=== PATIENT | female | born 1980 | race Two or more races ===

== ENCOUNTER → 2020-05-04 09:08 | Outpatient (BNVA) | payer OTHER, SELFPAY | PROVIDERS: PCP Internal Medicine; Referring Provider Internal Medicine; Visit Provider Advanced Practice Midwife | DX: N93.9 Abnormal uterine and vaginal bleeding, unspecified (principal); D21.9 Benign neoplasm of connective and other soft tissue, unspecified | CPT/HCPCS: 99213; Q3014 ==

== ENCOUNTER 2020-05-15 10:18 | Outpatient (REF) | payer OTHER, SELFPAY | END 2020-05-15 10:19 | disposition home or self-care (01) | LOC: HO.LAB 10:18 | PROVIDERS: PCP Internal Medicine; Referring Provider Internal Medicine; Visit Provider Obstetrics & Gynecology | DX: N93.9 Abnormal uterine and vaginal bleeding, unspecified (principal) | CPT/HCPCS: 58100; 81025; 88305 ==

== ENCOUNTER 2020-05-22 11:03 | Outpatient (REF) | payer OTHER, SELFPAY ==
--- NOTE | 2020-05-22 11:12 | US_ITS ---
EXAMINATION: ULTRASOUND PELVIS CLINICAL INFORMATION: Abnormal uterine and vaginal bleeding. COMPARISON: Pelvis ultrasound 03/22/2020. TECHNIQUE: Transabdominal and transvaginal ultrasound the pelvis is performed. FINDINGS: On transvaginal ultrasound the uterus is retroverted and retroflexed measuring 9.6 cm in length, 5.8 cm in AP and 6.2 cm in transverse dimension. There is a hypoechoic lesion at the junction of fundus and the body of uterus measuring 3.0 x 2.9 x 3.0 cm. Previously it measured 3.8 x 3.5 x 3.4 cm. This is consistent with fibroid. Endometrium is thickened measuring 1.5 cm. Adjacent to the endometrium is a cystic structure measuring 0.3 x 0.3 x 0.3 cm. In addition there is slight hypervascularity along the peripheral endometrium which could be secondary to recent endoscopic biopsy 05/15/2020. The right ovary measures 4.0 x 2.3 x 2.3 cm and volume 11.1 mL. There is new anechoic cyst measuring 1.8 x 1.7 x 1.6 cm. Previously right ovary measured 2.7 x 3.1 x 2.1 cm. Left ovary measures 2.5 x 1.3 x 1.7 cm and volume 2.9 mL. Previously it measured 2.1 x 2.2 x 2.2 cm. US/US pelvic complete IMPRESSION: New right ovarian 1.8 cm cyst. Cystic structure adjacent to endometrium measures 0.3 cm, new since previous study. Hypervascular tissue of the peripheral endometrial could be secondary to recent endoscopic biopsy. Incidentally seen complex hypoechoic material within the endometrium is not seen at this time.
== END 2020-05-22 11:04 | disposition home or self-care (01) ==
LOC: HO.US 11:03
PROVIDERS: PCP Internal Medicine; Visit Provider Advanced Practice Midwife
DX: N93.9 Abnormal uterine and vaginal bleeding, unspecified (principal)
CPT/HCPCS: 76830; 76856

== ENCOUNTER → 2020-05-23 10:18 | Outpatient (BNVA) | payer OTHER, SELFPAY | PROVIDERS: PCP Internal Medicine; Referring Provider Internal Medicine; Visit Provider Obstetrics & Gynecology | DX: Z76.89 Persons encountering health services in other specified circumstances (principal) ==

== ENCOUNTER 2020-06-16 15:06 | Outpatient (REF) | payer OTHER, SELFPAY | END 2020-06-16 15:07 | disposition home or self-care (01) | LOC: HO.LAB 15:06 | PROVIDERS: Visit Provider Internal Medicine | DX: Z20.828 Contact with and (suspected) exposure to other viral communicable diseases (principal) | CPT/HCPCS: C9803; U0003 ==

== ENCOUNTER 2020-07-03 16:38 | Outpatient (REF) | payer OTHER, SELFPAY | END 2020-07-03 16:39 | disposition home or self-care (01) | LOC: HO.LAB 16:38 | PROVIDERS: Visit Provider Internal Medicine | DX: Z20.828 Contact with and (suspected) exposure to other viral communicable diseases (principal) | CPT/HCPCS: C9803; U0003 ==

== ENCOUNTER → 2020-07-05 15:32 | Outpatient (BNVA) | payer OTHER, SELFPAY | PROVIDERS: Visit Provider Obstetrics & Gynecology | DX: Z76.89 Persons encountering health services in other specified circumstances (principal) ==

== ENCOUNTER 2020-07-18 13:39 | Outpatient (REF) | payer OTHER, SELFPAY ==
[2020-07-18 14:46] LABS: Hematocrit 33.7 % (37-47); Hemoglobin 10.8 g/dl (12.0-16.0); Mean Corpuscular Hemoglobin 29.5 pg (27.0-33.0); Mean Corpuscular Volume 92.1 fL (80-98); Mean Platelet Volume 10.8 fL (9.4-12.3); Platelet Count 335 X10*3/uL (160-400); Red Blood Count 3.66 X10*6/uL (4.20-5.50); Red Cell Distribution Width 15.3 % (11.0-16.0); White Blood Count 7.6 X10*3/uL (4.8-10.8)
== END 2020-07-18 13:40 | disposition home or self-care (01) ==
LOC: HO.LAB 13:39
PROVIDERS: PCP Internal Medicine; Visit Provider Obstetrics & Gynecology
DX: N93.9 Abnormal uterine and vaginal bleeding, unspecified (principal)
CPT/HCPCS: 36415; 85027

== ENCOUNTER → 2020-07-19 10:02 | Outpatient (BNVA) | payer OTHER, SELFPAY | PROVIDERS: PCP Internal Medicine; Visit Provider Obstetrics & Gynecology ==

== ENCOUNTER → 2020-08-07 10:59 | Outpatient (BNVA) | payer OTHER, SELFPAY | PROVIDERS: PCP Internal Medicine; Visit Provider Obstetrics & Gynecology ==

== ENCOUNTER 2020-08-11 15:08 | Outpatient (REF) | payer OTHER, SELFPAY ==
--- NOTE | 2020-08-11 15:13 | MM_ITS ---
EXAMINATION: MM SCREENING DIGITAL BREAST TOMOSYNTHESIS, BILATERAL CLINICAL INFORMATION: Screening. Asymptomatic. No prior breast imaging. Age 39. No known family history breast cancer. The lifetime risk of breast cancer based on the Tyrer-Cuzick Model is 9%. COMPARISON: None (current study represents initial baseline exam). TECHNIQUE: Digital breast tomosynthesis is performed in both the craniocaudal and mediolateral oblique views along with computer-aided detection (CAD). Synthesized 2D images are generated from the tomosynthesis. FINDINGS: There are scattered areas of fibroglandular density (ACR BI-RADS breast composition Category b). There are no significant masses, abnormal calcifications, or other abnormalities. The axilla and skin contours are unremarkable. MM/MM tomosynthesis screening BI IMPRESSION: No mammographic evidence of malignancy. ASSESSMENT: BI-RADS 1: Negative RECOMMENDATION: Routine annual mammography screening. This patient's information was entered into a reminder system with a target due date for their next mammogram.
== END 2020-08-11 15:09 | disposition home or self-care (01) ==
LOC: HO.MAMMO 15:08
PROVIDERS: Visit Provider Obstetrics & Gynecology
DX: Z12.31 Encounter for screening mammogram for malignant neoplasm of breast (principal)
CPT/HCPCS: 77063; 77067

== ENCOUNTER 2020-10-30 13:22 | Outpatient (REF) | payer OTHER, SELFPAY ==
[2020-10-30 14:14] LABS: Hematocrit 35.6 % (37-47); Hemoglobin 11.3 g/dl (12.0-16.0); Mean Corpuscular HGB Conc 31.7 g/dl (31.0-35.0); Mean Corpuscular Volume 91.5 fL (80-98); Mean Platelet Volume 11.1 fL (9.4-12.3); Platelet Count 336 X10*3/uL (160-400); Red Blood Count 3.89 X10*6/uL (4.20-5.50); Red Cell Distribution Width 14.1 % (11.0-16.0); White Blood Count 6.8 X10*3/uL (4.8-10.8)
== END 2020-10-30 13:23 | disposition home or self-care (01) ==
LOC: HO.LAB 13:22
PROVIDERS: PCP Internal Medicine; Visit Provider Obstetrics & Gynecology
DX: D21.9 Benign neoplasm of connective and other soft tissue, unspecified (principal); N93.9 Abnormal uterine and vaginal bleeding, unspecified
CPT/HCPCS: 36415; 85027

== ENCOUNTER → 2020-10-31 11:30 | Outpatient (BNVA) | payer OTHER, SELFPAY | PROVIDERS: PCP Internal Medicine; Visit Provider Obstetrics & Gynecology | CPT/HCPCS: 99212 ==

== ENCOUNTER → 2021-05-02 14:47 | Outpatient (BNVA) | payer OTHER, SELFPAY | PROVIDERS: PCP Internal Medicine; Visit Provider Obstetrics & Gynecology ==

== ENCOUNTER 2021-08-03 13:42 | Outpatient (REF) | payer OTHER, SELFPAY ==
[2021-08-03 15:07] LABS: Binax Internal Control QC Valid; Binax Now Covid-19 Ag Negative (Negative)
== END 2021-08-03 13:43 | disposition home or self-care (01) ==
LOC: HO.LAB 13:42
PROVIDERS: Visit Provider Internal Medicine
DX: Z20.822 Contact with and (suspected) exposure to COVID-19 (principal)
CPT/HCPCS: 36415; C9803

== ENCOUNTER 2021-08-08 11:58 | Outpatient (REF) | payer OTHER, SELFPAY ==
[2021-08-08 12:16] LABS: MANUAL DIFF FLAG NO
[2021-08-08 13:12] LABS: Basophils Percent Auto 0.6 % (0-2); Eosinophils Absolute Auto 0.1 X10*3/uL (0.0-0.4); Eosinophils Percent Auto 0.9 % (0-4); Hematocrit 30.7 % (37.0-47.0); Hemoglobin 9.4 g/dl (12.0-16.0); Imm Gran Abs Auto 0.02 X10*3/uL (0.00-0.03); Imm Gran Pct Auto 0.3 % (0.0-0.4); Lymphocytes Absolute Auto 2.1 X10*3/uL (1.2-4.9); Lymphocytes Percent Auto 30.8 % (20-40); Mean Corpuscular HGB Conc 30.6 g/dl (31.0-35.0); Mean Corpuscular Hemoglobin 23.8 pg (27.0-33.0); Mean Corpuscular Volume 77.7 fL (80.0-98.0); Mean Platelet Volume 11.5 fL (9.4-12.3); Monocytes Absolute Auto 0.6 X10*3/uL (0.1-1.2); Monocytes Percent Auto 8.1 % (2-11); Neutrophils Absolute Auto 4.1 x10*3/uL (2.0-8.3); Neutrophils Percent Auto 59.3 % (45-73); Platelet Count 420 X10*3/uL (160-400); Red Blood Count 3.95 X10*6/uL (4.20-5.50); Red Cell Distribution Width 19.5 % (11.0-16.0); White Blood Count 6.9 X10*3/uL (4.8-10.8)
[2021-08-08 13:43] LABS: Alanine Aminotransferase 17 U/L (0-31); Albumin Level 4.4 g/dL (3.5-5.0); Alkaline Phosphatase 55 U/L (39-117); Anion Gap 13 (12-20); Aspartate Amino Transferase 23 U/L (5-31); Bilirubin Total 0.2 mg/dL (0.0-1.0); Blood Urea Nitrogen 18 mg/dL (9-16); Calcium 9.3 mg/dL (8.4-10.2); Carbon Dioxide 21 mmol/L (22-29); Chloride 110 mmol/L (96-108); Cholesterol 186 mg/dL; Estimated Glomerular Filt Rate > 60; Glucose Fasting 103 mg/dL (60-99); HDL Cholesterol 47 mg/dL; Iron 37 mcg/dL (30-160); LDL Cholesterol Calculated 125 mg/dl; Percent Iron Saturation 7 % (15-50); Potassium 4.8 mmol/L (3.3-5.1); Sodium 139 mmol/L (135-145); Total Iron Binding Capacity 526 mcg/dL (228-428); Total Protein 7.8 g/dL (6.5-8.0); Triglycerides 70 mg/dL; Unsaturated Iron Binding 489 ug/dL
[2021-08-13 16:55] LABS: Vitamin D 25-OH, D2 <4 ng/mL; Vitamin D 25-OH, D3 19 ng/mL; Vitamin D 25-OH, Total 19 ng/mL (30-100)
== END 2021-08-08 11:59 | disposition home or self-care (01) ==
LOC: HO.LAB 11:58
PROVIDERS: PCP Internal Medicine; Visit Provider Internal Medicine
DX: D64.9 Anemia, unspecified (principal); E66.9 Obesity, unspecified; E55.9 Vitamin D deficiency, unspecified
CPT/HCPCS: 36415; 80053; 80061; 82306; 83540; 85025

== ENCOUNTER 2021-08-15 13:12 | Outpatient (RCR) | payer OTHER, SELFPAY ==
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
== END 2021-09-21 14:15 | disposition home or self-care (01) ==
LOC: HO.PT 13:12
PROVIDERS: PCP Internal Medicine; Visit Provider Internal Medicine
DX: M54.9 Dorsalgia, unspecified (principal)
CPT/HCPCS: 97110; 97161

== ENCOUNTER 2021-09-13 12:00 | Outpatient (REF) | payer OTHER, SELFPAY ==
--- NOTE | ~2021-09-13 | MM_ITS ---
EXAMINATION: MM SCREENING DIGITAL BREAST TOMOSYNTHESIS, BILATERAL CLINICAL INFORMATION: Screening. Asymptomatic. The lifetime risk of breast cancer based on the Tyrer-Cuzick Model is 10%. COMPARISON: Mammography: 08/11/2020 (baseline) TECHNIQUE: Digital breast tomosynthesis is performed in both the craniocaudal and mediolateral oblique views along with computer-aided detection (CAD). Synthesized 2D images are generated from the tomosynthesis. FINDINGS: There are scattered areas of fibroglandular density (ACR BI-RADS breast composition Category b). There are no significant masses, abnormal calcifications, or other abnormalities. Parenchymal pattern is similar to prior studies. There is no developing density or architectural abnormality. The axilla and skin contours are unremarkable. No significant changes. MM/MM tomosynthesis screening BI IMPRESSION: No mammographic evidence of malignancy. ASSESSMENT: BI-RADS 1: Negative RECOMMENDATION: Routine annual mammography screening. This patient's information was entered into a reminder system with a target due date for their next mammogram.
== END 2021-09-13 12:01 | disposition home or self-care (01) ==
LOC: HO.MAMMO 12:00
PROVIDERS: PCP Internal Medicine; Visit Provider Internal Medicine
DX: Z12.31 Encounter for screening mammogram for malignant neoplasm of breast (principal)
CPT/HCPCS: 77063; 77067

== ENCOUNTER 2021-12-11 15:21 | Outpatient (REF) | payer OTHER, SELFPAY ==
[2021-12-11 16:07] LABS: COVID-19 Test Positive (Negative); IDNOW Serial# 16C4AD1C
== END 2021-12-11 15:22 | disposition home or self-care (01) ==
LOC: HO.LAB 15:21
PROVIDERS: PCP Internal Medicine; Visit Provider Internal Medicine
DX: Z20.822 Contact with and (suspected) exposure to COVID-19 (principal)
CPT/HCPCS: 87635; C9803

== ENCOUNTER 2021-12-14 23:58 | Emergency (ER) | payer OTHER, SELFPAY ==
[2021-12-15 00:49] VITALS: BP 135/74; PULSE 78; RESP 18; TEMP 36.9; O2SAT 100; BMI 31.8
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
== END 2021-12-15 01:51 | disposition home or self-care (01) ==
PROVIDERS: Emergency Provider Emergency Medicine; PCP Internal Medicine
DX: S29.9XXA Unspecified injury of thorax, initial encounter (principal); M25.512 Pain in left shoulder; M25.511 Pain in right shoulder; V43.52XA Car driver injured in collision with other type car in traffic accident, initial encounter; Y93.9 Activity, unspecified; Y92.410 Unspecified street and highway as the place of occurrence of the external cause; Y99.9 Unspecified external cause status; Z79.899 Other long term (current) drug therapy; Z87.891 Personal history of nicotine dependence
CPT/HCPCS: 99283

== ENCOUNTER → 2021-12-17 13:36 | Outpatient (BNVA) | payer OTHER, SELFPAY | PROVIDERS: PCP Internal Medicine; Visit Provider Advanced Practice Midwife | DX: N90.7 Vulvar cyst (principal) | CPT/HCPCS: 99212 ==

== ENCOUNTER 2022-02-05 15:48 | Outpatient (REF) | payer OTHER, SELFPAY ==
--- NOTE | ~2022-02-05 | XR_ITS ---
EXAMINATION: XR LUMBOSACRAL SPINE CLINICAL INFORMATION: Lung nodule with sciatica COMPARISON: Radiograph from 01/24/2017 TECHNIQUE: Three views of the lumbosacral spine. FINDINGS: 5 nonrib-bearing lumbar-type vertebral bodies. No acute visible fracture or dislocation. Suggestion of mild L5-S1 and neuroforaminal narrowing. Very mild multilevel degenerative changes with anterior osteophyte formation and lower lumbar spine facet arthropathy. Vertebral body heights and disc spaces are otherwise maintained. Posterior elements are intact. Paraspinal soft tissues are normal. Visualized bowel gas is unremarkable. XR/XR lumbar spine 2-3V IMPRESSION: 1. No acute visible fracture or dislocation. 2. Suggestion of mild L5-S1 and neuroforaminal narrowing. 3. Very mild multilevel degenerative changes.
== END 2022-02-05 15:49 | disposition home or self-care (01) ==
LOC: HO.XRAY 15:48
PROVIDERS: PCP Internal Medicine; Visit Provider Nurse Practitioner Family
DX: M54.40 Lumbago with sciatica, unspecified side (principal)
CPT/HCPCS: 72100

== ENCOUNTER 2022-04-19 10:29 | Outpatient (REF) | payer OTHER, SELFPAY ==
[2022-04-19 15:23] LABS: CT PCR NOT DETECTED (Not Detect.); NG PCR NOT DETECTED (Not Detect.)
[2022-04-20 15:15] LABS: BV Int Neg Control Negative (Negative); BV Int Pos Control Positive (Positive)
== END 2022-04-19 10:30 | disposition home or self-care (01) ==
LOC: HO.LNP 10:29
PROVIDERS: Visit Provider Advanced Practice Midwife
DX: N89.8 Other specified noninflammatory disorders of vagina (principal); Z11.3 Encounter for screening for infections with a predominantly sexual mode of transmission; Z87.891 Personal history of nicotine dependence
CPT/HCPCS: 87480; 87491; 87510; 87591; 87660; 99212

== ENCOUNTER 2022-07-17 14:28 | Outpatient (REF) | payer OTHER, SELFPAY ==
[2022-07-17 15:29] LABS: Mean Corpuscular HGB Conc 30.3 g/dl (31.0-35.0); Mean Corpuscular Hemoglobin 22.5 pg (27.0-33.0); Neutrophils Percent Auto 54.3 % (45-73); SCAN SMEAR FLAG 1
[2022-07-17 15:30] LABS: Basophils Percent Auto 0.6 % (0-2); Eosinophils Percent Auto 0.4 % (0-4); Hemoglobin 9.7 g/dl (12.0-16.0); Imm Gran Abs Auto 0.02 X10*3/uL (0.00-0.03); Imm Gran Pct Auto 0.3 % (0.0-0.4); Lymphocytes Absolute Auto 2.6 X10*3/uL (1.2-4.9); Lymphocytes Percent Auto 35.7 % (20-40); MANUAL DIFF FLAG SCAN; Mean Corpuscular Volume 74.2 fL (80.0-98.0); Mean Platelet Volume 11.2 fL (9.4-12.3); Monocytes Absolute Auto 0.6 X10*3/uL (0.1-1.2); Monocytes Percent Auto 8.7 % (2-11); Neutrophils Absolute Auto 3.9 x10*3/uL (2.0-8.3); PLT CLUMP 1; Red Blood Count 4.31 X10*6/uL (4.20-5.50); Red Cell Distribution Width 21.1 % (11.0-16.0)
[2022-07-17 15:54] LABS: PLT ABN DIST 1; Platelet Count 372 X10*3/uL (160-400); White Blood Count 7.2 X10*3/uL (4.8-10.8)
[2022-07-17 15:55] LABS: SLIDE REVIEW VERIFIED
[2022-07-17 16:15] LABS: Alanine Aminotransferase 13 U/L (0-31); Albumin Level 4.4 g/dL (3.5-5.0); Alkaline Phosphatase 59 U/L (39-117); Anion Gap 13 (12-20); Aspartate Amino Transferase 17 U/L (5-31); Bilirubin Total 0.6 mg/dL (0.0-1.0); Blood Urea Nitrogen 11 mg/dL (9-16); Calcium 9.1 mg/dL (8.4-10.2); Carbon Dioxide 23 mmol/L (22-29); Chloride 108 mmol/L (96-108); Cholesterol 163 mg/dL; Estimated Glomerular Filt Rate > 60; Glucose Fasting 86 mg/dL (60-99); HDL Cholesterol 43 mg/dL; Iron 28 mcg/dL (30-160); LDL Cholesterol Calculated 108 mg/dl; Percent Iron Saturation 7 % (15-50); Potassium 4.2 mmol/L (3.3-5.1); Sodium 140 mmol/L (135-145); Total Iron Binding Capacity 430 mcg/dL (228-428); Total Protein 7.2 g/dL (6.5-8.0); Triglycerides 63 mg/dL; Unsaturated Iron Binding 402 ug/dL; Vitamin D 25-OH Total 14.9 ng/mL (>30)
== END 2022-07-17 14:29 | disposition home or self-care (01) ==
LOC: HO.LAB 14:28
PROVIDERS: PCP Internal Medicine; Visit Provider Internal Medicine
DX: Z00.00 Encounter for general adult medical examination without abnormal findings (principal); E55.9 Vitamin D deficiency, unspecified; D64.9 Anemia, unspecified
CPT/HCPCS: 36415; 80053; 80061; 82306; 83540; 85025

== ENCOUNTER 2022-07-31 12:04 | Outpatient (REF) | payer OTHER, SELFPAY ==
[2022-07-31 12:53] LABS: Leukocytes Stool Qualitative NEGATIVE (NEGATIVE)
== END 2022-07-31 12:05 | disposition home or self-care (01) ==
LOC: HO.LNP 12:04
PROVIDERS: Visit Provider Internal Medicine
DX: L29.0 Pruritus ani (principal)
CPT/HCPCS: 87338; 89055

== ENCOUNTER 2022-09-19 11:28 | Outpatient (REF) | payer OTHER, SELFPAY ==
--- NOTE | ~2022-09-19 | MM_ITS ---
EXAMINATION: MM SCREENING DIGITAL BREAST TOMOSYNTHESIS, BILATERAL CLINICAL INFORMATION: Screening. Asymptomatic. The lifetime risk of breast cancer based on the Tyrer-Cuzick Model is 9%. COMPARISON: Mammography: 09/13/2021, 08/11/2020 (baseline) TECHNIQUE: Digital breast tomosynthesis is performed in both the craniocaudal and mediolateral oblique views along with computer-aided detection (CAD). Synthesized 2D images are generated from the tomosynthesis. Additional left MLO view is provided. FINDINGS: There are scattered areas of fibroglandular density (ACR BI-RADS breast composition Category b). Parenchymal pattern borders on heterogeneously dense. Parenchymal distribution is similar to prior studies. No architectural abnormality or developing density. There are no significant masses, abnormal calcifications, or other abnormalities. The axilla and skin contours are unremarkable. MM/MM tomosynthesis screening BI IMPRESSION: No mammographic evidence of malignancy. ASSESSMENT: BI-RADS 1: Negative RECOMMENDATION: Routine annual mammography screening. This patient's information was entered into a reminder system with a target due date for their next mammogram.
== END 2022-09-19 11:29 | disposition home or self-care (01) ==
LOC: HO.MAMMO 11:28
PROVIDERS: PCP Internal Medicine; Visit Provider Internal Medicine
DX: Z12.31 Encounter for screening mammogram for malignant neoplasm of breast (principal)
CPT/HCPCS: 77063; 77067

== ENCOUNTER 2022-10-25 15:21 | Outpatient (REF) | payer OTHER, SELFPAY | END 2022-10-25 15:22 | disposition home or self-care (01) | LOC: HO.LNP 15:21 | PROVIDERS: Visit Provider Internal Medicine | DX: R19.7 Diarrhea, unspecified (principal) | CPT/HCPCS: 87338 ==

== ENCOUNTER → 2022-12-10 14:33 | Outpatient (BNVA) | payer OTHER, SELFPAY | PROVIDERS: PCP Internal Medicine; Visit Provider Physician Assistant | DX: L29.0 Pruritus ani (principal); D50.0 Iron deficiency anemia secondary to blood loss (chronic); K59.09 Other constipation; R19.7 Diarrhea, unspecified; R19.8 Other specified symptoms and signs involving the digestive system and abdomen | CPT/HCPCS: 99202 ==

== ENCOUNTER 2022-12-18 14:34 | Outpatient (REF) | payer OTHER, SELFPAY ==
[2022-12-18 14:50] LABS: MANUAL DIFF FLAG NO
[2022-12-18 15:51] LABS: Basophils Percent Auto 0.7 % (0-2); Eosinophils Absolute Auto 0.1 X10*3/uL (0.0-0.4); Eosinophils Percent Auto 0.9 % (0-4); Hematocrit 29.1 % (37.0-47.0); Hemoglobin 8.8 g/dl (12.0-16.0); Imm Gran Abs Auto 0.01 X10*3/uL (0.00-0.03); Imm Gran Pct Auto 0.2 % (0.0-0.4); Lymphocytes Absolute Auto 2.2 X10*3/uL (1.2-4.9); Lymphocytes Percent Auto 38.8 % (20-40); Mean Corpuscular HGB Conc 30.2 g/dl (31.0-35.0); Mean Corpuscular Hemoglobin 22.6 pg (27.0-33.0); Mean Corpuscular Volume 74.8 fL (80.0-98.0); Mean Platelet Volume 11.2 fL (9.4-12.3); Monocytes Absolute Auto 0.6 X10*3/uL (0.1-1.2); Monocytes Percent Auto 10.4 % (2-11); Neutrophils Absolute Auto 2.7 x10*3/uL (2.0-8.3); Platelet Count 432 X10*3/uL (160-400); Red Blood Count 3.89 X10*6/uL (4.20-5.50); Red Cell Distribution Width 20.4 % (11.0-16.0); White Blood Count 5.6 X10*3/uL (4.8-10.8)
[2022-12-18 16:28] LABS: Alanine Aminotransferase 15 U/L (0-31); Albumin Level 4.2 g/dL (3.5-5.0); Alkaline Phosphatase 56 U/L (39-117); Anion Gap 10 (12-20); Aspartate Amino Transferase 18 U/L (5-31); Bilirubin Total 0.5 mg/dL (0.0-1.0); Blood Urea Nitrogen 12 mg/dL (9-16); C Reactive Protein 0.24 mg/dL (< or = 0.50); Carbon Dioxide 25 mmol/L (22-29); Chloride 109 mmol/L (96-108); Estimated Glomerular Filt Rate > 60; Glucose Random 87 mg/dL (60-115); Iron 42 mcg/dL (30-160); Percent Iron Saturation 10 % (15-50); Potassium 4.2 mmol/L (3.3-5.1); Sodium 140 mmol/L (135-145); Total Iron Binding Capacity 403 mcg/dL (228-428); Total Protein 6.8 g/dL (6.5-8.0); Unsaturated Iron Binding 361 ug/dL
[2022-12-18 16:43] LABS: Erythrocyte Sedimentation Rate 34 MM/HR (0-20)
[2022-12-18 16:45] LABS: Ferritin 4 ng/mL (10-250); Thyroid Stimulating Hormone 1.45 uIU/mL (0.32-4.0)
[2022-12-24 14:23] LABS: Transglutaminase IgA <1.0 U/mL
== END 2022-12-18 14:35 | disposition home or self-care (01) ==
LOC: HO.LAB 14:34
PROVIDERS: PCP Internal Medicine; Visit Provider Physician Assistant
DX: K52.9 Noninfective gastroenteritis and colitis, unspecified (principal); R19.8 Other specified symptoms and signs involving the digestive system and abdomen; D64.9 Anemia, unspecified; L29.0 Pruritus ani
CPT/HCPCS: 36415; 80053; 82728; 83540; 84443; 85025; 85652; 86140; 86364

== ENCOUNTER 2023-01-08 15:11 | Outpatient (REF) | payer OTHER, SELFPAY | END 2023-01-08 15:12 | disposition home or self-care (01) | LOC: HO.LNP 15:11 | PROVIDERS: Visit Provider Physician Assistant | DX: K59.09 Other constipation (principal); L29.0 Pruritus ani | CPT/HCPCS: 87177; 87209 ==

== ENCOUNTER → 2023-01-21 13:36 | Outpatient (BNVA) | payer OTHER, SELFPAY | PROVIDERS: PCP Internal Medicine; Visit Provider Physician Assistant | DX: K59.09 Other constipation (principal); A04.8 Other specified bacterial intestinal infections; D50.0 Iron deficiency anemia secondary to blood loss (chronic); N93.9 Abnormal uterine and vaginal bleeding, unspecified; N92.4 Excessive bleeding in the premenopausal period | CPT/HCPCS: 99212 ==

== ENCOUNTER 2023-01-22 11:20 | Outpatient (REF) | payer OTHER, SELFPAY ==
[2023-01-22 12:51] LABS: MANUAL DIFF FLAG NO
[2023-01-22 13:03] LABS: Basophils Percent Auto 0.5 % (0-2); Eosinophils Absolute Auto 0.1 X10*3/uL (0.0-0.4); Eosinophils Percent Auto 1.2 % (0-4); Hematocrit 33.7 % (37.0-47.0); Hemoglobin 10.3 g/dl (12.0-16.0); Imm Gran Abs Auto 0.02 X10*3/uL (0.00-0.03); Imm Gran Pct Auto 0.3 % (0.0-0.4); Lymphocytes Percent Auto 34.4 % (20-40); Mean Corpuscular HGB Conc 30.6 g/dl (31.0-35.0); Mean Corpuscular Hemoglobin 24.6 pg (27.0-33.0); Mean Corpuscular Volume 80.6 fL (80.0-98.0); Mean Platelet Volume 11.5 fL (9.4-12.3); Monocytes Absolute Auto 0.5 X10*3/uL (0.1-1.2); Monocytes Percent Auto 8.7 % (2-11); Neutrophils Absolute Auto 3.2 x10*3/uL (2.0-8.3); Neutrophils Percent Auto 54.9 % (45-73); Platelet Count 386 X10*3/uL (160-400); Red Blood Count 4.18 X10*6/uL (4.20-5.50); Red Cell Distribution Width 23.2 % (11.0-16.0); White Blood Count 5.8 X10*3/uL (4.8-10.8)
[2023-01-22 13:54] LABS: Ferritin 6 ng/mL (10-250)
[2023-01-22 13:56] LABS: TSH reflex Free T4 1.87 uIU/mL (0.32-4.0)
== END 2023-01-22 11:21 | disposition home or self-care (01) ==
LOC: CF 11:20
PROVIDERS: Physician Assistant; PCP Internal Medicine; Visit Provider Advanced Practice Midwife
DX: D50.0 Iron deficiency anemia secondary to blood loss (chronic) (principal); D21.9 Benign neoplasm of connective and other soft tissue, unspecified; N92.4 Excessive bleeding in the premenopausal period; Z79.899 Other long term (current) drug therapy
CPT/HCPCS: 36415; 82728; 84443; 85025; 99212

== ENCOUNTER 2023-01-23 13:08 | Outpatient (REF) | payer OTHER, SELFPAY ==
--- NOTE | ~2023-01-23 | US_ITS ---
EXAMINATION: US PELVIS CLINICAL INFORMATION: Dysfunctional uterine bleeding. LMP 01/05/2023. COMPARISON: 05/22/2020 TECHNIQUE: Ultrasound of the pelvis is performed using both transabdominal and transvaginal transducers along with Doppler. Transvaginal imaging is performed due to inadequate visualization transabdominally. FINDINGS: Uterus: The uterus is retroverted. Uterine echotexture is heterogeneous. The uterus measures 9.9 x 7.1 x 7.6 cm. The endometrial stripe measures 1.2 cm in thickness. Fundal fibroid measures 4.4 x 4.5 x 4.7 cm. Anterior intramural fibroid measures 0.9 x 0.7 x 7 mm. Adnexa: Both ovaries are visualized. Right ovary measures 3.1 x 2.0 x 1.6 cm. Left ovary measures 4.4 x 3.0 x 3.6 cm. Echogenic mass in the left ovary measures 4.2 x 3.0 x 2.8 cm. No internal color Doppler flow. US/US pelvic and transvaginal IMPRESSION: Possible left ovarian dermoid cyst measuring 4.2 x 3.0 x 2.8 cm. MRI pelvis is recommended for further evaluation. Uterine fibroids.
== END 2023-01-23 13:09 | disposition home or self-care (01) ==
LOC: HO.HMGCX 13:08
PROVIDERS: PCP Internal Medicine; Visit Provider Advanced Practice Midwife
DX: D21.9 Benign neoplasm of connective and other soft tissue, unspecified (principal); N92.4 Excessive bleeding in the premenopausal period; N93.9 Abnormal uterine and vaginal bleeding, unspecified; D50.0 Iron deficiency anemia secondary to blood loss (chronic)
CPT/HCPCS: 76830; 76856

== ENCOUNTER 2023-02-03 13:35 | Outpatient (AMB) | payer OTHER, SELFPAY ==
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
[2023-02-03 13:46] VITALS: BMI 32.8
== END 2023-02-03 14:58 | disposition home or self-care (01) ==
LOC: HO.HWS 13:35
PROVIDERS: PCP Internal Medicine; Visit Provider Advanced Practice Midwife
DX: D21.9 Benign neoplasm of connective and other soft tissue, unspecified (principal); Z32.02 Encounter for pregnancy test, result negative; N92.4 Excessive bleeding in the premenopausal period; D64.9 Anemia, unspecified
CPT/HCPCS: 58100

== ENCOUNTER 2023-02-03 13:35 | Outpatient (REF) | payer OTHER, SELFPAY ==
[2023-02-03 18:29] LABS: CT PCR NOT DETECTED (Not Detect.); NG PCR NOT DETECTED (Not Detect.)
[2023-02-04 12:09] LABS: BV Int Neg Control Negative (Negative); BV Int Pos Control Positive (Positive)
== END 2023-02-03 13:36 | disposition home or self-care (01) ==
LOC: HO.LNP 13:35
PROVIDERS: PCP Internal Medicine; Visit Provider Advanced Practice Midwife
DX: N89.8 Other specified noninflammatory disorders of vagina (principal); D21.9 Benign neoplasm of connective and other soft tissue, unspecified; N92.4 Excessive bleeding in the premenopausal period; D64.9 Anemia, unspecified
CPT/HCPCS: 0353U; 58100; 81025; 87480; 87510; 87660

== ENCOUNTER 2023-02-04 11:51 | Outpatient (REF) | payer OTHER, SELFPAY | END 2023-02-04 11:52 | disposition home or self-care (01) | LOC: HO.LNP 11:51 | PROVIDERS: Visit Provider Advanced Practice Midwife | DX: N93.9 Abnormal uterine and vaginal bleeding, unspecified (principal) | CPT/HCPCS: 88305 ==

== ENCOUNTER → 2023-02-14 11:15 | Outpatient (BNV) | payer OTHER, SELFPAY | PROVIDERS: PCP Internal Medicine; Visit Provider Internal Medicine Medical Oncology | DX: D64.9 Anemia, unspecified (principal) | CPT/HCPCS: 99213; 99214 ==

== ENCOUNTER 2023-02-18 09:43 | Outpatient (AMB) | payer OTHER, SELFPAY ==
--- NOTE | 2023-02-18 09:43 | A.OFFVIS_ITS ---
Intake Intake Visit Reasons: results Intake Note: Telehealth for results Hand Stitcher Required: No Allergies acetaminophen [From Percocet] Allergy (Intermediate, Verified 02/18/23 09:44) stomache oxycodone [From Percocet] Allergy (Intermediate, Verified 02/18/23 09:44) stomache citalopram Adverse Reaction (Intermediate, Verified 02/18/23 09:44) nausea HPI results HPI Details This is a tele visit to review patient's endometrial biopsy results done approximately 2 weeks ago as well as an ultrasound done last month and also a review of the ultrasound that was done in 2019. Patient is had of periods of menorrhagia and has had some severe anemia that is being managed currently by ir on and she is going to be getting iron transfusions. She has been very anxious about getting these results. And this provider was out sick on the day we had planned to discuss them so I'm calling her today. She tells me she is feeling somewhat better and her iron improved and she saw the director hospice operations on Friday and her hemoglobin is up to 10.9 which is vastly improved from 8.8 in November. She had a period after the endometrial biopsy biopsy that lasted about 7 days but is gone and over now. She sometimes has discomfort when she has sex and it sometimes on the left side so she is very interested to find out and talk about the dermoid cyst that is a possible finding on the ultrasound as well she also had a finding of small fibroids that had been noted in the past as well. She has an appointment already scheduled to speak with Dr. Dudley on 03/12/2023 about best ways to proceed with investigating and managing the possible dermoid cyst and I did review that she will be discussing this with him. 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 [facility] Medical History Back pain Depression Iron deficiency anemia due to chronic blood loss Migraine with aura Obese Overweight Surgical History No pertinent past surgical history Family History Mother Diabetes HTN (hypertension) Mental health disorder Father High cholesterol HTN (hypertension) Sister Asthma Social History (Updated 02/14/23 @ 11:26 by Cristine Trujillo) Household Members: Family Housing: Apartment Alcohol intake: never Patient Tobacco Use Status: Former Tobacco user Tobacco use type: Cigarette e-Cigarette/Vaping Use: Never Used Second Hand Smoke Exposure: No service: No Current occupational status: employed Current occupational exposures/hazards: No Sexual orientation: Straight/Heterosexual Gender identity: Female Cognitive needs: No Hearing needs: No Vision needs: No Female Reproductive History Menstrual Age of Menarche: 11 Results Reviewed Results Reviewed: Patient: Rachel Haider MR#: [id number] : 1980 Acct:[id number] Age/Sex: 42 / F ADM Date: 01/23/23 Loc: HO.HMGCX Attending Dr: Elsa Trejo CNM Ordering Physician: Elsa Trejo CNM Date of Service: 01/23/23 Procedure(s): US pelvic and transvaginal Accession Number(s): [id number] cc: Elsa Trejo CNM~ EXAMINATION:? US PELVIS CLINICAL INFORMATION:? Dysfunctional uterine bleeding. LMP 01/05/2023. COMPARISON: 05/22/2020 TECHNIQUE: Ultrasound of the pelvis is performed using both transabdominal and transvaginal transducers along with Doppler. Transvaginal imaging is performed due to inadequate visualization transabdominally. FINDINGS: Uterus: The uterus is retroverted. Uterine echotexture is heterogeneous. The uterus measures 9.9 x 7.1 x 7.6 cm. The endometrial stripe measures 1.2 cm in thickness. Fundal fibroid measures 4.4 x 4.5 x 4.7 cm. Anterior intramural fibroid measures 0.9 x 0.7 x 7 mm. Adnexa: Both ovaries are visualized. Right ovary measures 3.1 x 2.0 x 1.6 cm. Left ovary measures 4.4 x 3.0 x 3.6 cm. Echogenic mass in the left ovary measures 4.2 x 3.0 x 2.8 cm. No internal color Doppler flow. US/US pelvic and transvaginal IMPRESSION: Possible left ovarian dermoid cyst measuring 4.2 x 3.0 x 2.8 cm. MRI pelvis is recommended for further evaluation. ? Uterine fibroids. Dictated By: Shereen Leiva MD Signed By: <Electronically signed by Shereen Leiva MD in OV> 01/24/236 DD/ 1340 TD/TT:? Cloth Napping Supervisor: Name:?Rachel Haider Age/Sex: 42/F Attending: Elsa Trejo CNM : 1980 Submitted by: Elsa Trejo CNM Copies to: MR #: [id number] ? Status: DEP REF Collected: 02/04/23 Location: [facility] Received: 02/04/23 Diagnosis Endometrium, biopsy:? Benign late secretory endometrium; no atypia or carcinoma.? Comment:? Some fragments may be derived from benign functional polyps. Clinical History AUB Microscopic Description Microscopic sections reviewed. Material Received EMB Gross Description Received in formalin labeled ?EMB are multiple soft, buckner irregular and tubular cast fragments of tissue along with a scant amount of mucus and blood aggregating 2.0 x 2.0 x 1.0 cm which are submitted in toto in cassette A1 and A2. CEDS NOTE:? Some or all of the immunohistochemical tests reported herein may have been developed and their performance characteristics determined by [facility].? They have not been cleared or approved by the U.S. Food and Drug Administration (FDA).? However, the FDA has determined that such clearance or approval is not necessary.? This laboratory is certified under the Clinical Laboratory Improvement Amendments of 1988 (CLIA) as qualified to perform high complexity clinical laboratory testing. Electronically Signed By: Claudette Morley ? 02/05/23 1833 Patient: Rachel Haider MR#: [id number] : 1980 Acct:[id number] Age/Sex: 39 / F ADM Date: 05/22/20 Loc: .US Attending Dr: Alona Warren CNM Ordering Physician: Alona Warren CNM Date of Service: 05/22/20 Procedure(s): US pelvic complete Accession Number(s): [id number] cc: Alona Warren CNM~ EXAMINATION: ULTRASOUND PELVIS CLINICAL INFORMATION: Abnormal uterine and vaginal bleeding.? COMPARISON: Pelvis ultrasound 03/22/2020. TECHNIQUE: Transabdominal and transvaginal ultrasound the pelvis is performed.? FINDINGS: On transvaginal ultrasound the uterus is retroverted and retroflexed measuring 9.6 cm in length, 5.8 cm in AP and 6.2 cm in transverse dimension. There is a hypoechoic lesion at the junction of fundus and the body of uterus measuring 3.0 x 2.9 x 3.0 cm. Previously it measured 3.8 x 3.5 x 3.4 cm. This is consistent with fibroid. Endometrium is thickened measuring 1.5 cm. Adjacent to the endometrium is a cystic structure measuring 0.3 x 0.3 x 0.3 cm. In addition there is slight hypervascularity along the peripheral endometrium which could be secondary to recent endoscopic biopsy 05/15/2020. The right ovary measures 4.0 x 2.3 x 2.3 cm and volume 11.1 mL. There is new anechoic cyst measuring 1.8 x 1.7 x 1.6 cm. Previously right ovary measured 2.7 x 3.1 x 2.1 cm. Left ovary measures 2.5 x 1.3 x 1.7 cm and volume 2.9 mL. Previously it measured 2.1 x 2.2 x 2.2 cm. US/US pelvic complete IMPRESSION: New right ovarian 1.8 cm cyst. ? Cystic structure adjacent to endometrium measures 0.3 cm, new since previous study. ? Hypervascular tissue of the peripheral endometrial could be secondary to recent endoscopic biopsy. Incidentally seen complex hypoechoic material within the endometrium is not seen at this time.? Dictated By: FORTUNATO RAMOS MD Signed By: <Electronically signed by FORTUNATO RAMOS MD in OV> 05/22/20 1401 DD/ 1112 Assessment & Plan Assessment & Plan (1) Fibroids: Code(s): D21.9 - Benign neoplasm of connective and other soft tissue, unspecified (2) Menorrhagia, premenopausal: Code(s): N92.4 - Excessive bleeding in the premenopausal period (3) Anemia: Code(s): D64.9 - Anemia, unspecified (4) Dermoid cyst: Comment: possible- see u/s Code(s): D36.9 - Benign neoplasm, unspecified site Plan This is a tele visit to review patient's endometrial biopsy results done approximately 2 weeks ago as well as an ultrasound done last month and also a review of the ultrasound that was done in 2019. Patient is had of periods of menorrhagia and has had some severe anemia that is being managed currently by iron and she is going to be getting iron transfusions. She has been very anxious about getting these results. And this provider was out sick on the day we had planned to discuss them so I'm calling her today. She tells me she is feeling somewhat better and her iron improved and she saw the director hospice operations on Friday and her hemoglobin is up to 10.9 which is vastly improved from 8.8 in November. She had a period after the endometrial biopsy biopsy that lasted about 7 days but is gone and over now. She sometimes has discomfort when she has sex and it sometimes on the left side so she is very interested to find out and talk about the dermoid cyst that is a possible finding on the ultrasound as well she also had a finding of small fibroids that had been noted in the past as well. She has an appointment already scheduled to speak with Dr. Dudley on 03/12/2023 about best ways to proceed with investigating and managing the possible dermoid cyst and I did review that she will be discussing this with him. 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 I reviewed all of the above with her in great detail all the endometrial biopsy and both ultrasound results and as well as her trending with her hemoglobin and hematocrit. I answered all of her questions to the best of my ability and future plans will be made when she speaks with Dr. Dudley. Told her to expect a phone call from the medical certification specialist to rearrange some of those extraneous appointments. Telehealth Telehealth Location of provider rendering services: practice address Location of patient: address on file Patient Identification confirmed using: Name, : Yes Telehealth method: voice only Patient verbally consented to treatment: Yes Patient verbally consented to billing insurance company: Yes Patient informed of any privacy concerns related to visit: Yes Coding Level of Care Code Tele Est Pt Level 3 (80378) Diagnoses Fibroids D21.9 Menorrhagia, premenopausal N92.4 Anemia D64.9 Dermoid cyst D36.9 Time Spent (min) 25 Comment 1 cr/18 speaking w pt ( voice only- she declined video), 6 charting.
== END 2023-02-18 10:15 | disposition home or self-care (01) ==
LOC: HO.HWSM 09:43
PROVIDERS: PCP Internal Medicine; Visit Provider Advanced Practice Midwife
DX: D21.9 Benign neoplasm of connective and other soft tissue, unspecified (principal); N92.4 Excessive bleeding in the premenopausal period; D64.9 Anemia, unspecified; D36.9 Benign neoplasm, unspecified site
CPT/HCPCS: 99213

== ENCOUNTER → 2023-02-18 09:43 | Outpatient (BNVA) | payer OTHER, SELFPAY | PROVIDERS: PCP Internal Medicine; Visit Provider Advanced Practice Midwife ==

== ENCOUNTER 2023-02-24 14:52 | Outpatient (AMB) | payer OTHER, SELFPAY ==
--- NOTE | 2023-02-24 14:53 | A.OFFVIS_ITS ---
Intake Intake Visit Reasons: follow up labs Intake Note: Patient follow up for lab results. Patient denies any GI issues. Commissions Analyst Required: No Accompanied by: Self / Same As Patient Allergies acetaminophen [From Percocet] Allergy (Intermediate, Verified 02/24/23 14:53) stomache oxycodone [From Percocet] Allergy (Intermediate, Verified 02/24/23 14:53) stomache citalopram Adverse Reaction (Intermediate, Verified 02/24/23 14:53) nausea Medication List - Last Reconciled 02/25/23 by Marietta Bah PA-C cholecalciferol (vitamin D3) 50 mcg PO DAILY 90 days ferrous sulfate 325 mg PO DAILY 90 days ibuprofen 600 mg PO TID PRN 30 days HPI HPI Comments History of Present Illness Details A 42 y/o female f/u with anemia- for menorrhagia-she is happy she is getting anemia We sent her to [facility]- yonathan had bx- now awaiting iron infusion- She has an appointment already scheduled to speak with Dr. Dudley on 03/12/2023 about best ways to proceed with investigating and managing the possible dermoid cyst. She has a normal bowel pattern- softly formed- senna on rare occassion Appetite is good No vomiting, hematemesis, hematochezia fevers PFSH Medical History Back pain Depression Iron deficiency anemia due to chronic blood loss Migraine with aura Obese Overweight Surgical History No pertinent past surgical history Family History Mother Diabetes HTN (hypertension) Mental health disorder Father High cholesterol HTN (hypertension) Sister Asthma Social History Household Members: Family Housing: Apartment Alcohol intake: never Patient Tobacco Use Status: Former Tobacco user Tobacco use type: Cigarette e-Cigarette/Vaping Use: Never Used Second Hand Smoke Exposure: No service: No Current occupational status: employed Current occupational exposures/hazards: No Sexual orientation: Straight/Heterosexual Gender identity: Female Cognitive needs: No Hearing needs: No Vision needs: No Female Reproductive History Menstrual Age of Menarche: 11 Review of Systems Const All systems reviewed & are unremarkable except as noted in HPI and below Card Denies chest pain and Denies dyspnea Resp Denies dyspnea GI Denies hematochezia, Denies constipation, Reports GI cramping, Denies heartburn, Denies diarrhea, Denies loose stools and Denies nausea Reports abnormal menses, Reports abnormal vaginal bleeding, Reports menorrhagia and Reports dysmenorrhea Psych Reports anxiety Physical Exam Const General: cooperative, healthy appearing, no acute distress and anxious Orientation/consciousness: patient oriented x3 Limitations: no limitations Resp Effort & Inspection: normal respiratory effort and able to speak in complete sentences Auscultation: clear to auscultation bilaterally, no rales, no rhonchi and no wheezes Cardio Rate: regular rate Rhythm: regular rhythm Heart sounds: S1 normal heart sound present and S2 normal heart sound present GI Palpation (GI): Soft to palpation and nontender Auscultation: normal bowel sounds Neuro General: patient oriented x3 Extrem General: Yes full ROM Psych Appearance: grossly normal and well kempt Mental Status: mental status grossly normal Speech and movement: Clear speech present Affect: Anxious affect present Attitude: cooperative Thought process: Normal thought process present Thought content: Normal thought content present Results Reviewed Results Reviewed: Reviewed labs. [facility] note US/US pelvic and transvaginal IMPRESSION: Possible left ovarian dermoid cyst measuring 4.2 x 3.0 x 2.8 cm. MRI pelvis is recommended for further evaluation. ? Uterine fibroids Assessment & Plan Assessment & Plan (1) Iron deficiency anemia due to chronic blood loss: Comment: [facility] roving department end finder, Menorrhagia, dermoid cysts, fibroids, Recent biopsy Following up [facility] department end [facility] expected -surgery Code(s): D50.0 - Iron deficiency anemia secondary to blood loss (chronic) Plan: Continue for to follow [facility] department end finder (2) Abnormal uterine bleeding (AUB): Comment: persistent anemia Code(s): N93.9 - Abnormal uterine and vaginal bleeding, unspecified (3) Fibroids: Code(s): D21.9 - Benign neoplasm of connective and other soft tissue, unspecified (4) Dermoid cyst: Comment: possible- see u/s Code(s): D36.9 - Benign neoplasm, unspecified site Plan cont- [facility] plan of care she will call with any concerns Follow-up 2 months- Patient Instructions: 42-year-old female and deficiency anemia abnormal uterine bleeding, new diagnoses dermoid cyst, uterine fibroids Follows up. She will follow plan of care with [facility] expecting iron infusion as well as surgery We will see her back after recovery for progress. Encouraged to call questions or concerns. Appreciate the opportunity assist in the care the patient Coding Level of Care Code Est Pt Level 3 (02412) Diagnoses Iron deficiency anemia due to chronic blood loss D50.0 Abnormal uterine bleeding (AUB) N93.9 Fibroids D21.9 Dermoid cyst D36.9 Time Spent (min) 25
== END 2023-02-24 15:49 | disposition home or self-care (01) ==
LOC: HO.HGI 14:52
PROVIDERS: PCP Internal Medicine; Visit Provider Physician Assistant
DX: D50.0 Iron deficiency anemia secondary to blood loss (chronic) (principal); N93.9 Abnormal uterine and vaginal bleeding, unspecified; D21.9 Benign neoplasm of connective and other soft tissue, unspecified; D36.9 Benign neoplasm, unspecified site
CPT/HCPCS: 99213

== ENCOUNTER → 2023-02-24 14:52 | Outpatient (BNVA) | payer OTHER, SELFPAY | PROVIDERS: PCP Internal Medicine; Visit Provider Physician Assistant | DX: D50.0 Iron deficiency anemia secondary to blood loss (chronic) (principal); D36.9 Benign neoplasm, unspecified site; D21.9 Benign neoplasm of connective and other soft tissue, unspecified; N93.9 Abnormal uterine and vaginal bleeding, unspecified | CPT/HCPCS: 99212 ==

== ENCOUNTER 2023-03-05 15:14 | Outpatient (AMB) | payer OTHER, SELFPAY ==
--- NOTE | 2023-03-05 15:14 | MHC.OFFVIS ---
Intake Vital Signs 03/05/23 15:16 Height 5 ft 3 in Weight 180 lb 12.465 oz BMI 32.0 BP 122/74 Intake Visit Reasons: Dermoid cyst National Facilities Manager Required: No Information Interpreted: non-clinical & clinical Incoming Inspector: Incoming Inspector Present Accompanied by: Self / Same As Patient Allergies acetaminophen [From Percocet] Allergy (Intermediate, Verified 03/05/23 15:16) stomache oxycodone [From Percocet] Allergy (Intermediate, Verified 03/05/23 15:16) stomache citalopram Adverse Reaction (Intermediate, Verified 03/05/23 15:16) nausea Is last menstrual period known: Yes Last menstrual period: 02/02/23 Post menopausal: No Patient : No Do you need a note to return to daycare/school/sports/work: Yes (for surgery on friday) HPI HPI Comments History of Present Illness Details The patient is presenting referred from Janelle Trejo CNM regarding abnormal uterine bleeding. The following workup was done so far: H&H 10.9/35.2, TSH, GC and chlamydia negative. Last co testing was in 2019 was negative. Last mammogram was in 09/19 was BI-RADS 1. Endometrial biopsy pathology showed the following: Endometrium, biopsy:? Benign late secretory endometrium; no atypia or carcinoma.? Comment:? Some fragments may be derived from benign functional polyps. pelvic ultrasound showed the following: Uterus: The uterus is retroverted. Uterine echotexture is heterogeneous. The uterus measures 9.9 x 7.1 x 7.6 cm. The endometrial stripe measures 1.2 cm in thickness. Fundal fibroid measures 4.4 x 4.5 x 4.7 cm. Anterior intramural fibroid measures 0.9 x 0.7 x 7 mm. Adnexa: Both ovaries are visualized. Right ovary measures 3.1 x 2.0 x 1.6 cm. Left ovary measures 4.4 x 3.0 x 3.6 cm. Echogenic mass in the left ovary measures 4.2 x 3.0 x 2.8 cm. No internal color Doppler flow. [facility] Medical History Back pain Depression Iron deficiency anemia due to chronic blood loss Migraine with aura Obese Overweight Surgical History No pertinent past surgical history Family History Mother Diabetes HTN (hypertension) Mental health disorder Father High cholesterol HTN (hypertension) Sister Asthma Social History Household Members: Family Housing: Apartment Alcohol intake: never Patient Tobacco Use Status: Former Tobacco user Tobacco use type: Cigarette e-Cigarette/Vaping Use: Never Used Second Hand Smoke Exposure: No service: No Current occupational status: employed Current occupational exposures/hazards: No Sexual orientation: Straight/Heterosexual Gender identity: Female Cognitive needs: No Hearing needs: No Vision needs: No Female Reproductive History Menstrual Age of Menarche: 11 Date of last menstrual period: 02/02/23 Total pregnancies: 2 Full term: 2 Review of Systems Card Reports as per HPI and Reports no additional complaints Resp Reports as per HPI and Reports no additional complaints GI Reports as per HPI and Reports no additional complaints Reports as per HPI Physical Exam Vital Signs: Last Vital Signs BP 122/74 03/05/23 15:16 BMI result Body Mass Index 32.0 Const General: cooperative, healthy appearing and comfortable Chest Chest palpation & inspection: normal inspection of the chest and normal palpation of entire chest wall Breast/axilla inspection: normal inspection of the breasts and normal inspection of the axillae Breast/axilla palpation: normal palpation of the breasts, normal palpation of the axillae and no axillary lymphadenopathy Resp Effort & Inspection: normal respiratory effort Auscultation: clear to auscultation bilaterally Percussion: percussion normal Cardio Palpation: normal PMI Rate: regular rate Rhythm: regular rhythm Heart sounds: no murmurs and no rubs Peripheral pulses: Peripheral pulses 2+ throughout GI Inspection: Yes normal to inspection Palpation (GI): Soft to palpation, nontender, no guarding, not rigid and No hepatosplenomegaly present Percussion: Yes normal to percussion Auscultation: normal bowel sounds Rectal Exam - Female: deferred Assessment & Plan Assessment & Plan (1) Ovarian cyst: Code(s): N83.209 - Unspecified ovarian cyst, unspecified side Plan: discussed with the patient the results of the ultrasound showing ovarian cyst with possible dermoid features, recommended pelvic MRI as a next step. MRI of the pelvis order (2) Myoma: Code(s): D21.9 - Benign neoplasm of connective and other soft tissue, unspecified Plan: Discussed with the patient the results of the ultrasound and the size of the myomas . Discussed with the patient risk of myosarcoma and symptoms that are caused by myomas including but not limited to pelvic pain, pressure symptoms, abnormal uterine bleeding. In addition discussed with the patient options of treatment for myomas including: Serial ultrasounds periodically to follow-up on the size of the myoma while targeting the treatment against fibroids related symptoms ( control pills, Mirena IUD, progesterone treatment, GnRH agonist/antagonist, uterine artery embolization or endometrial ablation) versus surgical treatmentincluding hysterectomy and or myomectomy. All pros and cons, risks and benefits of all options were discussed with the patient. The patient understands that delay in surgical treatment in case of myosarcoma can affect her prognosis, after further discussion, the patient decided to think about it and get back to us next visit (3) Abnormal uterine bleeding (AUB): Comment: polyp on emb path Code(s): N93.9 - Abnormal uterine and vaginal bleeding, unspecified Plan: Discussed with the patient the workup done for abnormal uterine bleeding and the pathology for endometrial biopsy showing features of endometrial polyp, recommended hysteroscopy D&C possible polypectomy/ myomectomy. Discussed with the patient the procedure , all benefits and risks including but not limited to inability to complete the procedure , bleeding, infection, possible need for blood transfusion with all its risk ( HIV,syphilis, Hepatitis, anaphylaxis shock, others..), injury to bladder, rectum, possible need for laparoscopy/laparotomy or hysterectomy. The patient verbalized understanding and signed the consent. Instructions given the patient to schedule a 2 week postoperative appointment Orders: Orders MR pelvis wo/w con Today N83.209 - Unspecified ovarian cyst, unspecified side Coding Level of Care Code Est Pt Level 3 (91185) Diagnoses Ovarian cyst N83.209 Myoma D21.9 Abnormal uterine bleeding (AUB) N93.9
[2023-03-05 15:16] VITALS: BP 122/74; BMI 32.0
== END 2023-03-05 16:33 | disposition home or self-care (01) ==
LOC: HO.HWS 15:14
PROVIDERS: PCP Internal Medicine; Visit Provider Obstetrics & Gynecology
DX: N83.209 Unspecified ovarian cyst, unspecified side (principal); D21.9 Benign neoplasm of connective and other soft tissue, unspecified; N93.9 Abnormal uterine and vaginal bleeding, unspecified
CPT/HCPCS: 99213

== ENCOUNTER → 2023-03-05 15:14 | Outpatient (BNVA) | payer OTHER, SELFPAY | PROVIDERS: PCP Internal Medicine; Visit Provider Obstetrics & Gynecology | DX: N83.209 Unspecified ovarian cyst, unspecified side (principal); D21.9 Benign neoplasm of connective and other soft tissue, unspecified; N93.9 Abnormal uterine and vaginal bleeding, unspecified | CPT/HCPCS: 99212 ==

== ENCOUNTER 2023-03-19 13:51 | Outpatient (REF) | payer OTHER, SELFPAY | END 2023-03-19 13:52 | disposition home or self-care (01) | LOC: HO.MDS 13:51 | PROVIDERS: Visit Provider Internal Medicine Medical Oncology | DX: D50.8 Other iron deficiency anemias (principal) | CPT/HCPCS: 96365; J1756 ==

== ENCOUNTER 2023-03-26 13:33 | Outpatient (REF) | payer OTHER, SELFPAY | END 2023-03-26 13:34 | disposition home or self-care (01) | LOC: HO.MDS 13:33 | PROVIDERS: Visit Provider Internal Medicine Medical Oncology | DX: D50.9 Iron deficiency anemia, unspecified (principal) | CPT/HCPCS: 96365; J1756 ==

== ENCOUNTER 2023-04-04 09:01 | Day surgery (SDC) | payer OTHER, SELFPAY ==
[2023-04-02 10:39] VITALS: BMI 32.0
--- NOTE | 2023-04-03 08:50 | HO.ANESPROP2 ---
Documented by User: Apple Terry NP 04/03/23 08:51 HPI - Anesthesia Eval Consult details Narrative: 42yo F for D&C Hysteroscopy, possible myomectomy/polypectomy PMFSH Active Problems Active Problems: All Active Problems (Updated 03/05/23 @ 15:41 by Rocael Dudley MD) Ovarian cyst (Acute) Dermoid cyst (Acute) Fibroids (Acute) Menorrhagia, premenopausal (Acute) Anemia (Acute) Chronic constipation (Acute) Hypovitaminosis D (Acute) H. pylori infection (Acute) Physical exam (Acute) Pelvic floor weakness in female (Acute) Dyspareunia, female (Acute) Vaginal itching (Acute) Rectal itching (Acute) Low back pain with sciatica (Acute) Iron deficiency anemia due to chronic blood loss (Acute) Back pain (Acute) Obese (Acute) Well woman exam (Acute) Myoma (Acute) Abnormal uterine bleeding (AUB) (Acute) Past Medical History Medical History Back pain Depression Iron deficiency anemia due to chronic blood loss Migraine with aura Obese Overweight Family History Family History Mother Diabetes HTN (hypertension) Mental health disorder Father High cholesterol HTN (hypertension) Sister Asthma Surgical History Surgical History No pertinent past surgical history Social History Social History Household Members: Family Housing: Apartment Alcohol intake: never Patient Tobacco Use Status: Former Tobacco user Quit Date: 5 yrs ago Tobacco use type: Cigarette e-Cigarette/Vaping Use: Never Used Second Hand Smoke Exposure: No Use of substances other than those prescribed or required for medical reasons: Yes Substance Use Frequency: Occasionally Are you DNR?: No Advance Directives: No Advance Directives Information Provided: Yes service: No Current occupational status: employed Current occupational exposures/hazards: No Sexual orientation: Straight/Heterosexual Gender identity: Female Cognitive needs: No Hearing needs: No Vision needs: No Meds Allergies Allergy/AdvReac Type Severity Reaction Status Date / Time acetaminophen [From Percocet] Allergy Intermediate stomache Verified 03/05/23 15:16 oxycodone [From Percocet] Allergy Intermediate stomache Verified 03/05/23 15:16 citalopram AdvReac Intermediate nausea Verified 03/05/23 15:16 Exam Exam Date and Time: April 03, 2023 0850 Height,Weight and Vital Signs: Height 5 ft 3 in Weight 81.987 kg Pertinent Lab Results Pertinent Lab Results: Laboratory Tests 02/14/23 11:50 WBC 4.6 L Hgb 10.9 L Hct 35.2 L Plt Count 410 H Sodium 140 Potassium 4.2 Chloride 108 Carbon Dioxide 25 BUN 12 Creatinine 0.76 Assessment and Plan Assessment Anesthesia Assessment: Chart Reviewed Documented by User: Carrol Ellington MD 04/04/23 09:37 PMFSH Past Medical History Medical History Back pain Depression Iron deficiency anemia due to chronic blood loss Migraine with aura Obese Overweight Family History Family History Mother Diabetes HTN (hypertension) Mental health disorder Father High cholesterol HTN (hypertension) Sister Asthma Family history of problems with anesthesia: No Surgical History Surgical History No pertinent past surgical history History of Problems with Anesthesia: No Social History Social History Household Members: Family Housing: Apartment Alcohol intake: never Patient Tobacco Use Status: Former Tobacco user Quit Date: 5 yrs ago Tobacco use type: Cigarette e-Cigarette/Vaping Use: Never Used Second Hand Smoke Exposure: No Use of substances other than those prescribed or required for medical reasons: Yes Substance Use Frequency: Occasionally Are you DNR?: No Advance Directives: No Advance Directives Information Provided: Yes service: No Current occupational status: employed Current occupational exposures/hazards: No Sexual orientation: Straight/Heterosexual Gender identity: Female Cognitive needs: No Hearing needs: No Vision needs: No Meds Allergies Allergy/AdvReac Type Severity Reaction Status Date / Time acetaminophen [From Percocet] Allergy Intermediate stomache Verified 03/05/23 15:16 oxycodone [From Percocet] Allergy Intermediate stomache Verified 03/05/23 15:16 citalopram AdvReac Intermediate nausea Verified 03/05/23 15:16 Exam Airway Mallampati Class: II (one cap lateral) TM Dist: >3cm Neck ROM: Full Heart: rrr Lungs: cta Assessment and Plan Assessment Anesthesia Assessment: Anesthesia Plan Discussed Final Anesthetic Review Family History of Problems with Anesthesia: No History of Problems with Anesthesia: No NPO: Yes ASA Class: II Final Preanesthetic Review: No Changes in Pt Med Stat, Meds/Allgs Chart Reviewed and Consent Obtained/Reviewed Patient Risk: Intermediate Procedure Risk: Intermediate Anesthetic Plan Anesthetic Plan: GA Disposition: Standard PACU
[2023-04-04] VITALS (8 sets, daily range): BP systolic 111–152; BP diastolic 61–90; PULSE 48–64; RESP 15–18; TEMP 36.1–36.6; O2SAT 96–100
--- NOTE | 2023-04-04 09:24 | MHC.SHP ---
Pre-Procedural Eval Section A Date of Service: 04/04/23 The patient is an INPATIENT: No Changes since office visit: No Cold of Flu in the past 2 weeks, No New Medical Problems, No Changes in Medication and No Patient answered all questions The History & Physical has been completed within 30 days and I have reviewed it.: Yes Section B Chief Complaint: Unspecified ovarian cyst, unspecified side Allergies: Allergies Allergy/AdvReac Type Severity Reaction Status Date / Time acetaminophen [From Percocet] Allergy Intermediate stomache Verified 03/05/23 15:16 oxycodone [From Percocet] Allergy Intermediate stomache Verified 03/05/23 15:16 citalopram AdvReac Intermediate nausea Verified 03/05/23 15:16 Plan Diagnosis/Plan: Unchanged I have reviewed the history and physical and performed a pertinent physical examination on my patient. No changes have occurred unless specified. Time Spent With Patient Time: Total time managing care of this patient today ____ minutes.
[2023-04-04 09:43] LABS: UPreg QC Valid YES; Urine Pregnancy NEGATIVE (NEGATIVE)
[2023-04-04] MEDS: Lactated Ringers 1,000 ML 100 ML IVCONT (09:48)
--- NOTE | 2023-04-04 11:15 | P.OP_ITS ---
Operative Note Operative Note Date of Service: 04/04/23 Narrative: Preop Diagnosis: Abnormal uterine bleeding, Endometrial polyp on EMB pathology Operation: Diagnostic Hysteroscopy, Dilataion & Curettage and polypectomy Post Op Diagnosis: Endometrial Polyp QBL: Minimal Anesthesia: GLMA Surgeon: Rocael Dudley MD Development Administrator: None Complication: None Pathology: Endometrial Scrapings, Endometrial polyp Procedure: The patient was put in the dorsal lithotomy position, scrubbed, and draped in the usual manner. A sterile speculum was inserted in the patient's vagina. The anterior lip of the cervix was grasped with a single tooth tenaculum. The cervix was dilated up to 5 mm, then the scope was inserted in the patient's uterus. Inspection revealed endometrial polyp. The Myosure Reach device was used; it was introduced through the operative channel and polypectomy done with no complications. The scope was then taken out from the uterine cavity, sharp curettings was carried on with minimal to moderate amount of tissues retrieved. At the end of the procedure, all instruments were taken out of the patient uterine and vaginal cavity. The single tooth tenaculum was removed and homeostasis was assured using pressure,. The patient tolerated the procedure well and was transferred to the PACU in a stable condition.
--- NOTE | 2023-04-04 11:15 | PM.OP ---
Brief Operative Note Date of Service: 04/04/23 Pre-op diagnosis: Abnormal uterine bleeding, endometrial polyp on EMB pathology Post-op diagnosis: same (Endometrial polyp) Procedure: Hysteroscopy D&C, Polypectomy Surgeon: Rocael Dudley MD Anesthesia: GLMA Was an Integrated Logistics Programs Director used for this Procedure?: No Estimated blood loss (mL): 0 Pathology: other (Endometrial Scrapping. Polyp) Condition: stable Disposition: PACU
== END 2023-04-04 12:20 | disposition home or self-care (01) ==
PROVIDERS: Nurse Practitioner; PCP Internal Medicine; Visit Provider Obstetrics & Gynecology
PROC: 0UDB8ZZ Extraction of Endometrium, Via Natural or Artificial Opening Endoscopic (ICD-10-PCS; CPT 58558; principal; 2023-04-04 10:30)
DX: N93.9 Abnormal uterine and vaginal bleeding, unspecified (principal); N84.0 Polyp of corpus uteri; D27.1 Benign neoplasm of left ovary; D50.0 Iron deficiency anemia secondary to blood loss (chronic); G43.109 Migraine with aura, not intractable, without status migrainosus; Z88.8 Allergy status to other drugs, medicaments and biological substances; E66.9 Obesity, unspecified; Z68.32 Body mass index [BMI] 32.0-32.9, adult
CPT/HCPCS: 58558; 81025; 88305; J0131; J1885; J2405; J3010

== ENCOUNTER → 2023-04-04 09:01 | Outpatient (BNV) | payer OTHER, SELFPAY | PROVIDERS: PCP Internal Medicine; Visit Provider Obstetrics & Gynecology | DX: N83.209 Unspecified ovarian cyst, unspecified side (principal) | CPT/HCPCS: 58558 ==

== ENCOUNTER 2023-04-07 13:36 | Outpatient (REF) | payer OTHER, SELFPAY | END 2023-04-07 13:37 | disposition home or self-care (01) | LOC: HO.MDS 13:36 | PROVIDERS: Visit Provider Internal Medicine Medical Oncology | DX: D50.8 Other iron deficiency anemias (principal) | CPT/HCPCS: 96365; J1756 ==

== ENCOUNTER 2023-04-15 10:57 | Outpatient (AMB) | payer OTHER, SELFPAY ==
--- NOTE | 2023-04-15 10:58 | A.OFFVIS_ITS ---
Intake Vital Signs 04/15/23 11:00 Height 5 ft 3 in Weight 180 lb BMI 31.9 BP 120/74 Intake Visit Reasons: post op Allergies acetaminophen [From Percocet] Allergy (Intermediate, Verified 03/05/23 15:16) stomache oxycodone [From Percocet] Allergy (Intermediate, Verified 03/05/23 15:16) stomache citalopram Adverse Reaction (Intermediate, Verified 03/05/23 15:16) nausea HPI HPI Comments History of Present Illness Details The patient is presenting post hysteroscopy D&C no complaints minimal vaginal bleeding no feverishness chills or abdominal pain. The pathology showed the following: A. Endometrium, polypectomy: Fragments of benign endometrial polyp; negative for atypia or hyperplasia. B. Endometrium, curettage: Fragments of inactive endometrium with stromal and glandular breakdown in a background of abundant blood; negative for atypia, hyperplasia or malignancy The following AUB workup was done : H&H 10.9/35.2, TSH, GC and chlamydia negative. Last co testing was in 2019 was negative. Last mammogram was in 09/19 was BI-RADS 1. Endometrial biopsy pathology showed the following: Endometrium, biopsy:? Benign late secretory endometrium; no atypia or carcinoma.? Comment:? Some fragments may be derived from benign functional polyps. pelvic ultrasound showed the following: Uterus: The uterus is retroverted. Uterine echotexture is heterogeneous. The uterus measures 9.9 x 7.1 x 7.6 cm. The endometrial stripe measures 1.2 cm in thickness. Fundal fibroid measures 4.4 x 4.5 x 4.7 cm. Anterior intramural fibroid measures 0.9 x 0.7 x 7 mm. Adnexa: Both ovaries are visualized. Right ovary measures 3.1 x 2.0 x 1.6 cm. Left ovary measures 4.4 x 3.0 x 3.6 cm. Echogenic mass in the left ovary measures 4.2 x 3.0 x 2.8 cm. No internal color Doppler flow. [facility] Medical History Iron deficiency anemia due to chronic blood loss Back pain Obese Migraine with aura Overweight Depression Surgical History No pertinent past surgical history Family History Mother Diabetes HTN (hypertension) Mental health disorder Father High cholesterol HTN (hypertension) Sister Asthma Social History Household Members: Family Housing: Apartment Alcohol intake: never Patient Tobacco Use Status: Former Tobacco user Quit Date: 5 yrs ago Tobacco use type: Cigarette e-Cigarette/Vaping Use: Never Used Second Hand Smoke Exposure: No service: No Current occupational status: employed Current occupational exposures/hazards: No Sexual orientation: Straight/Heterosexual Gender identity: Female Cognitive needs: No Hearing needs: No Vision needs: No Female Reproductive History Menstrual Age of Menarche: 11 Review of Systems Const All systems reviewed & are unremarkable except as noted in HPI and below Reports as per HPI and Reports no additional complaints GI Reports no additional complaints Reports no additional complaints Assessment & Plan Assessment & Plan (1) Menorrhagia, premenopausal: Code(s): N92.4 - Excessive bleeding in the premenopausal period (2) Fibroids: Code(s): D21.9 - Benign neoplasm of connective and other soft tissue, unspecified Plan: Discussed with the patient the results of the ultrasound and the size of the myomas. Discussed with the patient risk of myosarcoma and symptoms that are caused by myomas including but not limited to pelvic pain, pressure symptoms, abnormal uterine bleeding. In addition discussed with the patient options of treatment for myomas including: Serial ultrasounds periodically to follow-up on the size of the myoma while targeting the treatment against fibroids related symptoms ( control pills, Mirena IUD, progesterone treatment, GnRH agonist/antagonist, uterine artery embolization or endometrial ablation) versus surgical treatment including hysterectomy and or myomectomy. All pros and cons, risks and benefits of all options were discussed with the patient. The patient decided to proceed with surgical options , laparoscopic myomectomy and laparoscopic ovarian cystectomy since she is potentially interested in future fertility. All pros, cons, r/b of each approach were discussed the patient including evidence that morbidity is less and recovery is shorter with minimally invasive approaches to hysterectomy. Discussed with the patient the lack of availability of the robot DaVinci robot and/or minimally invasive network controller specialist at [facility]. Will refer to [facility]. (3) Dermoid cyst: Code(s): D36.9 - Benign neoplasm, unspecified site Plan: Discussed with the patient the finding on ultrasound history of of teratoma. Explained to the patient that these tumors have a characteristic imaging appearance, which allows reasonably accurate noninvasive diagnosis in many cases with high reported specificity is 98 to 100 percent, but definitive diagnosis is made at the time of surgical excision. Malignant transformation occurs in 0.2 to 2 percent of mature cystic teratomas The treatment is laparoscopic ovarian cystectomy in order to make a definitive diagnosis, preserve ovarian tissue, and avoid potential problems such as torsion, rupture, or development of malignant components. For women who have completed childbearing, salpingo-oophorectomy is also acceptable treatment. Benign cystic teratomas do not recur if surgically resected. The patient is interested in surgical management , will refer to [facility] Instructed the patient to call our office back in case a referral appointment is not scheduled, missed or canceled so that we will assist on rescheduling another appointment, the patient verbalized understanding agreed with the plan. Coding Level of Care Code Est Pt Level 3 (79649) Diagnoses Menorrhagia, premenopausal N92.4 Fibroids D21.9 Dermoid cyst D36.9
[2023-04-15 11:00] VITALS: BP 120/74; BMI 31.9
== END 2023-04-15 11:24 | disposition home or self-care (01) ==
LOC: HO.HWS 10:57
PROVIDERS: PCP Internal Medicine; Visit Provider Obstetrics & Gynecology
DX: N92.4 Excessive bleeding in the premenopausal period (principal); D21.9 Benign neoplasm of connective and other soft tissue, unspecified; D36.9 Benign neoplasm, unspecified site
CPT/HCPCS: 99213

== ENCOUNTER → 2023-04-15 10:57 | Outpatient (BNVA) | payer OTHER, SELFPAY | PROVIDERS: PCP Internal Medicine; Visit Provider Obstetrics & Gynecology | DX: Z48.816 Encounter for surgical aftercare following surgery on the genitourinary system (principal); N92.4 Excessive bleeding in the premenopausal period; D21.9 Benign neoplasm of connective and other soft tissue, unspecified; D36.9 Benign neoplasm, unspecified site | CPT/HCPCS: 99212 ==

== ENCOUNTER 2023-04-17 13:09 | Outpatient (REF) | payer OTHER, SELFPAY ==
[2023-04-17 14:03] LABS: Basophils Percent Auto 0.3 % (0-2); Eosinophils Absolute Auto 0.1 X10*3/uL (0.0-0.4); Hematocrit 36.9 % (37.0-47.0); Hemoglobin 11.9 g/dl (12.0-16.0); Imm Gran Abs Auto 0.01 X10*3/uL (0.00-0.03); Imm Gran Pct Auto 0.2 % (0.0-0.4); Lymphocytes Absolute Auto 2.1 X10*3/uL (1.2-4.9); Lymphocytes Percent Auto 33.3 % (20-40); MANUAL DIFF FLAG NO; Mean Corpuscular HGB Conc 32.2 g/dl (31.0-35.0); Mean Corpuscular Hemoglobin 27.5 pg (27.0-33.0); Mean Corpuscular Volume 85.2 fL (80.0-98.0); Mean Platelet Volume 10.8 fL (9.4-12.3); Monocytes Absolute Auto 0.6 X10*3/uL (0.1-1.2); Neutrophils Absolute Auto 3.5 x10*3/uL (2.0-8.3); Neutrophils Percent Auto 55.2 % (45-73); Platelet Count 302 X10*3/uL (160-400); Red Blood Count 4.33 X10*6/uL (4.20-5.50); White Blood Count 6.3 X10*3/uL (4.8-10.8)
== END 2023-04-17 13:10 | disposition home or self-care (01) ==
LOC: HO.MDS 13:09
PROVIDERS: Visit Provider Internal Medicine Medical Oncology
DX: D50.8 Other iron deficiency anemias (principal)
CPT/HCPCS: 36415; 85025; 96365; J1756

== ENCOUNTER 2023-05-08 11:30 | Outpatient (AMB) | payer OTHER, SELFPAY ==
[2023-05-08 11:32] VITALS: BP 127/82; PULSE 65; BMI 31.2
--- NOTE | 2023-05-08 11:32 | A.OFFVIS_ITS ---
Intake Vital Signs 05/08/23 11:32 Height 5 ft 3 in Weight 176 lb 5.917 oz BMI 31.2 BP 127/82 Blood Pressure Location Lt brachial Position Sitting Pulse 65 Intake Visit Reasons: follow up Intake Note: Rachel presents in the office as a follow up. CC: No concerns today. Infrastructure Software Engineer Required: No Allergies acetaminophen [From Percocet] Allergy (Intermediate, Verified 05/08/23 11:33) stomache oxycodone [From Percocet] Allergy (Intermediate, Verified 05/08/23 11:33) stomache citalopram Adverse Reaction (Intermediate, Verified 05/08/23 11:33) nausea Medication List - Last Reconciled 05/08/23 by Marietta Bah PA-C cholecalciferol (vitamin D3) 50 mcg PO DAILY 90 days ferrous sulfate 325 mg PO DAILY 90 days ibuprofen 600 mg PO TID PRN 30 days HPI HPI Comments History of Present Illness Details A 42-year-old female seen initially with anemia/menorrhagia follows up She had hysteroscopy- continues with heavy menses- iron infusion- just completed- referred to [facility]- for surgical consult-she will be seen there this month. She says it and recommended possible hysterectomy however she does not want to go that route she will further discuss with them. Constipation-improved , takes senna intermittently with good response- intermittent bloating associated with this specific food She has occasional rectal itching with hemorrhoids, however this is well seems to have improved without straining- She has no other GI or general complaints. No nausea, vomiting, hematemesis, hematochezia fever chills PFSH Medical History (Updated 05/08/23 @ 12:33 by Marietta Bah PA-C) Iron deficiency anemia due to chronic blood loss Back pain Obese Migraine with aura Overweight Depression Surgical History (Updated 05/08/23 @ 11:58 by Marietta Bah PA-C) History of hysteroscopy No pertinent past surgical history Family History Mother Diabetes HTN (hypertension) Mental health disorder Father High cholesterol HTN (hypertension) Sister Asthma Social History Household Members: Family Housing: Apartment Alcohol intake: never Patient Tobacco Use Status: Former Tobacco user Quit Date: 5 yrs ago Tobacco use type: Cigarette e-Cigarette/Vaping Use: Never Used Second Hand Smoke Exposure: No service: No Current occupational status: employed Current occupational exposures/hazards: No Sexual orientation: Straight/Heterosexual Gender identity: Female Cognitive needs: No Hearing needs: No Vision needs: No Female Reproductive History Menstrual Age of Menarche: 11 Review of Systems Const All systems reviewed & are unremarkable except as noted in HPI and below Card Denies chest pain and Denies dyspnea Resp Denies dyspnea GI Denies abdominal pain, Denies hematochezia, Reports constipation (Intermittent), Denies heartburn, Denies nausea and Denies vomiting Physical Exam Vital Signs: Last Vital Signs Pulse 65 05/08/23 11:32 BP 127/82 05/08/23 11:32 BMI result Body Mass Index 31.2 Const General: cooperative, healthy appearing and comfortable Orientation/consciousness: patient oriented x3 Limitations: no limitations Eyes Sclerae: sclerae normal Resp Effort & Inspection: normal respiratory effort and able to speak in complete sentences Skin General skin exam: no rashes or lesions noted Neuro General: patient oriented x3 Extrem General: Yes full ROM Psych Appearance: grossly normal and well kempt Mental Status: mental status grossly normal Speech and movement: Normal speech and movement present Affect: normal affect Attitude: cooperative Thought process: Normal thought process present Assessment & Plan Assessment & Plan (1) Iron deficiency anemia due to chronic blood loss: Comment: Menorrhagia, dermoid cysts, fibroids- seeing [facility]- 05/19 Following up warp coiler expected -surgery Code(s): D50.0 - Iron deficiency anemia secondary to blood loss (chronic) (2) Chronic constipation: Comment: BM q.d., following bowel regimen daily Code(s): K59.09 - Other constipation Medications: New methylcellulose (laxative) (Citrucel) 500 mg PO BID 60 tabs 5RF sennosides (senna) 8.6 mg PO DAILY PRN 30 caps 2RF constipation hydrocortisone 2.5% (Proctosol HC) 1 appl [place] BEDTIME PRN 30 grams 3RF hemorrhoids hydrocortisone 2.5% (Proctosol HC) 1 appl [place] BEDTIME PRN 30 grams 3RF hemorrhoids Discontinued sennosides (senna) Discontinued Reason: Patient no longer taking 8.6 mg PO BEDTIME 90 days PRN 90 caps 1RF constipation Patient Instructions: Continue consistent bowel regimen Maintain high-fiber diet Follow-up after warp coiler workup complete if need Coding Level of Care Code Est Pt Level 3 (45308) Diagnoses Iron deficiency anemia due to chronic blood loss D50.0 Chronic constipation K59.09 Time Spent (min) 30
== END 2023-05-08 13:01 | disposition home or self-care (01) ==
PROVIDERS: PCP Internal Medicine; Visit Provider Physician Assistant
DX: D50.0 Iron deficiency anemia secondary to blood loss (chronic) (principal); K59.09 Other constipation
CPT/HCPCS: 99213

== ENCOUNTER → 2023-05-08 11:30 | Outpatient (BNVA) | payer OTHER, SELFPAY | PROVIDERS: PCP Internal Medicine; Visit Provider Physician Assistant | DX: D50.0 Iron deficiency anemia secondary to blood loss (chronic) (principal); N92.0 Excessive and frequent menstruation with regular cycle; D36.9 Benign neoplasm, unspecified site; D21.9 Benign neoplasm of connective and other soft tissue, unspecified; K59.09 Other constipation | CPT/HCPCS: 99212 ==

== ENCOUNTER 2023-05-19 16:40 | Outpatient (REF) | payer OTHER, SELFPAY ==
--- NOTE | ~2023-05-19 | MR_ITS ---
EXAMINATION: MR PELVIS WITHOUT AND WITH CONTRAST CLINICAL INFORMATION: Newly developed right ovarian cyst, thickened endometrium and endometrial cystic lesion found on ultrasound of the pelvis COMPARISON: Ultrasound of pelvis on 05/22/2020 TECHNIQUE: Examination was performed in a high field strength MRI scanner. Pre-contrast multiplanar multisequence MR imaging of the pelvis was performed without IV contrast enhancement. Post-contrast axial T1 weighted fat suppressed images of the pelvis were obtained after IV injection of 8 mL Gadavist. FINDINGS: Uterus is enlarged, measuring 10.7 cm in vertical height, 7.6 cm in AP diameter, 7.1 cm in width. T2 hypointense isoenhancing large mass lesion is seen protruding into the endometrial cavity, surrounded by T2 hyperintense endometrium or fluid, measuring 4.3 cm in AP diameter, 4.2 cm in width, 4.8 cm in vertical height. Additional left anterior subendometrial T2 hypointense isoenhancing mass lesion is present, measuring 1.8 cm in AP diameter, 1.3 cm in width, 1.8 cm in vertical height. The remaining lower endometrial stripe is normal in thickness. In posterior right adnexa, an oval shaped T1 and T2 hyperintense lesion is seen, measuring 1.2 cm in AP diameter, 1.1 cm in width, 0.9 cm in vertical height. Smaller T2 hyperintense normal follicles are seen in the rest of the right ovary. Left ovary is normal in size with tiny follicles. Urinary bladder is well filled with urine. Pelvic fat plane is clean. No pelvic ascites is seen. No abnormally enlarged iliac or inguinal lymph nodes are found. The pelvis and bilateral hips are intact. Bilateral femoral heads and necks show normal signal without focal lesion. No abnormal joint effusion can be seen. The visualized bony pelvis show normal signal. Bilateral sacroiliac joints also appear unremarkable. MR/MR pelvis wo/w con IMPRESSION: 1. Uterine leiomyomatosis with a large central endometrial leiomyoma and a smaller left anterior uterine body leiomyoma are seen. 2. A hemorrhagic cyst or endometrioma is seen in posterior right ovary.
[2023-05-19] MEDS: gadobutroL 10 ML VIAL IVPUSH (17:42)
== END 2023-05-19 16:41 | disposition home or self-care (01) ==
LOC: HO.MRI 16:40
PROVIDERS: PCP Internal Medicine; Visit Provider Obstetrics & Gynecology
DX: N83.209 Unspecified ovarian cyst, unspecified side (principal)
CPT/HCPCS: 72197; A9585

== ENCOUNTER 2023-09-25 11:29 | Outpatient (REF) | payer OTHER, SELFPAY ==
--- NOTE | ~2023-09-25 | MM_ITS ---
EXAMINATION: MM SCREENING DIGITAL BREAST TOMOSYNTHESIS, BILATERAL CLINICAL INFORMATION: Screening. Asymptomatic COMPARISON: Mammography: This study is compared with prior exams dating back to 2020. TECHNIQUE: Digital breast tomosynthesis is performed in both the craniocaudal and mediolateral oblique views along with computer-aided detection (CAD). Synthesized 2D images are generated from the tomosynthesis. FINDINGS: The breasts are heterogeneously dense, which may obscure small masses (ACR BI-RADS breast composition Category c). There are no significant masses, abnormal calcifications, or other abnormalities. MM/MM tomosynthesis screening BI IMPRESSION: No mammographic evidence of malignancy. ASSESSMENT: BI-RADS BI-RADS 1 - Negative RECOMMENDATION: Routine annual mammography screening. 1 year F/U This examination should not preclude the clinical evaluation of a suspicious palpable abnormality. This patient's information was entered into a reminder system with a target due date for their next mammogram.
== END 2023-09-25 11:30 | disposition home or self-care (01) ==
LOC: HO.MAMMO 11:29
PROVIDERS: PCP Internal Medicine; Visit Provider Internal Medicine
DX: Z12.31 Encounter for screening mammogram for malignant neoplasm of breast (principal)
CPT/HCPCS: 77063; 77067

== ENCOUNTER → 2023-09-25 11:30 | Outpatient (BNV) | payer OTHER, SELFPAY | PROVIDERS: PCP Internal Medicine; Visit Provider Radiology Diagnostic Radiology | DX: Z12.31 Encounter for screening mammogram for malignant neoplasm of breast (principal) | CPT/HCPCS: 77063; 77067 ==

== ENCOUNTER 2023-10-16 15:02 | Outpatient (AMB) | payer OTHER, SELFPAY ==
[2023-10-16 15:05] VITALS: BP 136/80; BMI 33.5
--- NOTE | 2023-10-16 15:05 | MHC.PC.OV ---
Vital Signs 10/16/23 15:05 Height 5 ft 3 in Weight 189 lb BMI 33.5 BP 136/80 Blood Pressure Location Lt brachial Position Sitting Intake Visit Reasons: Annual Exam Intake Note: Patient here for a physical exam Program Instructor Required: No Accompanied by: Self / Same As Patient Allergies acetaminophen [From Percocet] Allergy (Intermediate, Verified 10/16/23 15:13) stomache oxycodone [From Percocet] Allergy (Intermediate, Verified 10/16/23 15:13) stomache citalopram Adverse Reaction (Intermediate, Verified 10/16/23 15:13) nausea Medication List - Last Reconciled 10/16/23 by Dianne Florence MD bisacodyl (Dulcolax (bisacodyl)) 10 mg MS DAILY PRN cholecalciferol (vitamin D3) 50 mcg PO DAILY 90 days ferrous sulfate 325 mg PO DAILY 90 days hydrocortisone 2.5% (Proctosol HC) 1 appl MS BEDTIME PRN ibuprofen 600 mg PO TID PRN 30 days sennosides (senna) 8.6 mg PO DAILY PRN Tobacco use date assessed: 10/16/23 Dental Screening Dental Screen Date: 10/16/23 Did you have a dental visit in the last 12 months?: Yes Did you have a dental problem in the last 6 months where you did not have access to dental care?: No Was dental information given to patient?: Patient has dentist HPI HPI Comments History of Present Illness Details This is a 42-year-old female with mild major depression that comes for her physical exam. She declines medication but started crying while ask. I will send this message to behavioral health to check for counseling sooner. Mammogram done August 2023. Last Pap smear was 2019 and was normal. Follows with OBGYN due to uterine fibroids. ON LICENSE OF [facility] Medical History (Updated 10/16/23 @ 15:29 by Dianne Florence MD) Iron deficiency anemia due to chronic blood loss Back pain Obese Migraine with aura Overweight Depression Surgical History History of hysteroscopy Family History Mother Diabetes HTN (hypertension) Mental health disorder Father High cholesterol HTN (hypertension) Sister Asthma Social History Household Members: Family Housing: Apartment Alcohol intake: never Patient Tobacco Use Status: Former Tobacco user Quit Date: 5 yrs ago Tobacco use type: Cigarette e-Cigarette/Vaping Use: Never Used Second Hand Smoke Exposure: No service: No Current occupational status: employed Current occupational exposures/hazards: No Sexual orientation: Straight/Heterosexual Gender identity: Female Cognitive needs: No Hearing needs: No Vision needs: No Female Reproductive History Menstrual Age of Menarche: 11 Questionnaire PHQ-9 Over the last 2 weeks, how often have you been bothered by any of the following problems? 1. Little interest or pleasure in doing things: not at all 2. Feeling down, depressed, or hopeless: more than half the days 3. Trouble falling or staying asleep, or sleeping too much: nearly every day 4. Feeling tired or having little energy: more than half the days 5. Poor appetite or overeating: nearly every day 6. Feeling bad about yourself - or that you are a failure or have let yourself or your family down: not at all 7. Trouble concentrating on things, such as reading the newspaper or watching television: not at all 8. Moving or speaking so slowly that other people could have noticed. Or the opposite - being so fidgety or restless that you have been moving around a lot more than usual: not at all 9. Thoughts that you would be better off or of hurting yourself in some way: not at all Total score: 10 Depression Screening Interpretation: Positive Depression Screening Follow-up: Follow-up Visit Requested and Declines treatment Depression Screening Done: Yes 33094 - PHQ-9 Billing: Yes Source: Developed by Drs. Tim Crabtree, Alia Keane, Prashanth Sanchez and colleagues, with an educational dayana from [employer]. Thrive Questionnaire Date Thrive assessed: 10/16/23 I am a: Patient What is your living situation today?: I have a steady place to live Within the past 12 months, did the food you bought not last and you didn't have the money to get more?: Never true Within the past 12 months, did you worry whether your food would run out before you got money to buy more?: Never true Do you have trouble paying for medicines?: No Do you have trouble getting transportation to medical appointments?: No Do you have trouble paying your heating and electricity bill?: No Do you have trouble taking care of your child, family member or friend?: No Do you have trouble with day-to-day activities such as bathing, preparing meals, shopping, managing finances, etc.?: No Are you currently unemployed and looking for a job?: No Are you interested in more education?: No Please select the resources that you would like help with: None Currently or been in a relationship where the following occur: no concerns reported THRIVE Score: 0 AUDIT C Alcohol Use Questionnaire (AUDIT-C) 1. How often do you have a drink containing alcohol?: Never Total Score: 0 Score Reviewed/Action Taken: No DEXTER-7 AMB Questionnaire DEXTER-7 Date DEXTER - 7 assessed: 10/16/23 Feeling nervous, anxious, or on edge: 2 = More than half the days Not being able to stop or control worryin = Several days Worrying too much about different things: 2 = More than half the days Trouble relaxin = More than half the days Being so restless that it is hard to sit still: 2 = More than half the days Becoming easily annoyed or irritable: 2 = More than half the days Feeling afraid as if something awful might happen: 1 = Several days Total DEXTER-7 score (0-4 normal; 5-9 mild; 10-14 moderate; 15-21 severe): 12 Source: Developed by Drs. Tim Crabtree, Alia Keane, Prashanth Sanchez and colleagues, with an educational dayana from [employer]. DEXTER-7 Assessment Billing DEXTER-7 Assessment Tool: DEXTER-7 Assessment 04131 Review of Systems Const All systems reviewed & are unremarkable except as noted in HPI and below Eyes Reports no additional complaints, Denies change in vision and Denies other visual disturbances Card Denies chest pain at rest, Denies chest pain with activity, Denies edema, Denies irregular heart rhythm, Denies claudication, Denies dyspnea, Denies dyspnea on exertion, Denies orthopnea, Denies paroxysmal nocturnal dyspnea and Denies slow heart rate Resp Denies cough, Denies dyspnea and Denies dyspnea on exertion GI Denies abdominal pain, Denies change in bowel habits, Denies excessive flatus, Denies nausea and Denies vomiting Denies urinary incontinence, Denies urinary hesitancy and Denies urinary urgency Musc Denies abnormal gait, Denies atrophy, Denies deformity and Denies limited range of motion Skin/Breast Denies bleeding lesions, Denies changing lesions and Denies rash Neuro Denies abnormal gait and Denies lack of coordination Physical exam (Primary Care) Vital Signs: Last Vital Signs BP 136/80 10/16/23 15:05 BMI result Body Mass Index 33.5 Tobacco/Smoking Status: Tobacco use Status Tobacco use date assessed 10/16/23 10/16/23 15:12 Patient Tobacco Use Status Former Tobacco user 10/16/23 15:12 Tobacco use type Cigarette 10/16/23 15:12 e-Cigarette/Vaping Use Never Used 10/16/23 15:12 PHQ-9: PHQ-9 Score PHQ-9: Total score 10 10/16/23 15:12 Depression Screening Interpretation: Positive Depression Screening Follow-up: Follow-up Visit Requested and Declines treatment Thrive Assessment: Date of Thrive Assessment Date Thrive assessed 10/16/23 10/16/23 15:12 Currently or been in a relationship where the following occur: no concerns reported Const Orientation/consciousness: patient oriented x3 HENMD Head: Yes normal to inspection, Yes normocephalic and Yes atraumatic Ears: external ears normal Eyes General: appearance normal, both eyes and all related structures Eyelids: Yes eyelids normal Conjunctivae: conjunctivae normal Neck Neck: Yes normal visual inspection and Yes supple Resp Effort & Inspection: normal respiratory effort Auscultation: clear to auscultation bilaterally Cardio Jugular venous distension: no JVD Rate: regular rate Rhythm: regular rhythm Heart sounds: S1 normal heart sound present and S2 normal heart sound present GI Inspection: Yes normal to inspection Palpation (GI): Soft to palpation and nontender Auscultation: normal bowel sounds Skin General skin exam: no rashes or lesions noted Neuro General: patient oriented x3 and no focal motor deficits Extrem General: Yes full ROM Psych Affect: Sad affect present Assessment and Plan Assessment & Plan (1) Physical exam: Code(s): Z00.00 - Encounter for general adult medical examination without abnormal findings Plan: Repeat in a year. (2) Mild major depression: Code(s): F32.0 - Major depressive disorder, single episode, mild Plan: Message sent to Blu Michael to call her for counseling options. Orders: Orders Vitamin D 25-OH Total Today E55.9 - Vitamin D deficiency, unspecified Lipid Panel Today Z00.00 - Encounter for general adult medical examination without abnormal findings Complete Blood Count Auto Diff Today D64.9 - Anemia, unspecified IRON PROFILE Today D64.9 - Anemia, unspecified Comprehensive [place]. Panel Fast Today Z00.00 - Encounter for general adult medical examination without abnormal findings Coding Level of Care Code Est Pt Prev Care 40-64y(09410) Diagnoses Physical exam Z00.00 Mild major depression F32.0 Additional Codes DEXTER-7 Assessment Billing - DEXTER-7 Assessment Tool: DEXTER-7 Assessment 39375 ([id number]) Time Spent (min) 33
== END 2023-10-16 15:23 | disposition home or self-care (01) ==
PROVIDERS: Visit Provider Internal Medicine
DX: Z00.00 Encounter for general adult medical examination without abnormal findings (principal); F32.0 Major depressive disorder, single episode, mild
CPT/HCPCS: 99396

== ENCOUNTER 2023-10-20 09:25 | Outpatient (REF) | payer OTHER, SELFPAY ==
[2023-10-20 09:54] LABS: MANUAL DIFF FLAG NO
[2023-10-20 10:15] LABS: Basophils Percent Auto 0.4 % (0-2); Eosinophils Absolute Auto 0.1 X10*3/uL (0.0-0.4); Eosinophils Percent Auto 1.6 % (0-4); Hemoglobin 10.6 g/dl (12.0-16.0); Imm Gran Abs Auto 0.01 X10*3/uL (0.00-0.03); Imm Gran Pct Auto 0.2 % (0.0-0.4); Lymphocytes Absolute Auto 1.8 X10*3/uL (1.2-4.9); Lymphocytes Percent Auto 35.3 % (20-40); Mean Corpuscular HGB Conc 31.2 g/dl (31.0-35.0); Mean Corpuscular Hemoglobin 27.1 pg (27.0-33.0); Mean Platelet Volume 11.4 fL (9.4-12.3); Monocytes Absolute Auto 0.5 X10*3/uL (0.1-1.2); Monocytes Percent Auto 10.2 % (2-11); Neutrophils Absolute Auto 2.6 x10*3/uL (2.0-8.3); Neutrophils Percent Auto 52.3 % (45-73); Platelet Count 382 X10*3/uL (160-400); Red Blood Count 3.91 X10*6/uL (4.20-5.50); Red Cell Distribution Width 16.9 % (11.0-16.0)
[2023-10-20 11:09] LABS: Alanine Aminotransferase 11 U/L (0-31); Albumin Level 4.1 g/dL (3.5-5.0); Alkaline Phosphatase 46 U/L (39-117); Anion Gap 10 (12-20); Aspartate Amino Transferase 15 U/L (5-31); Bilirubin Total 0.2 mg/dL (0.0-1.0); Blood Urea Nitrogen 13 mg/dL (9-16); Carbon Dioxide 25 mmol/L (22-29); Chloride 108 mmol/L (96-108); Cholesterol 191 mg/dL (<200); Estimated Glomerular Filt Rate > 60; Glucose Fasting 108 mg/dL (60-99); HDL Cholesterol 45 mg/dL (>40); Iron 35 mcg/dL (30-160); LDL Cholesterol Calculated 129 mg/dL (<100); Percent Iron Saturation 9 % (15-50); Potassium 4.3 mmol/L (3.3-5.1); Sodium 139 mmol/L (135-145); Total Iron Binding Capacity 391 mcg/dL (228-428); Total Protein 7.2 g/dL (6.5-8.0); Triglycerides 87 mg/dL (<150); Unsaturated Iron Binding 356 ug/dL
[2023-10-21 07:16] LABS: CT PCR NOT DETECTED (Not Detect.); NG PCR NOT DETECTED (Not Detect.)
[2023-10-21 11:57] LABS: BV Int Neg Control Negative (Negative); BV Int Pos Control Positive (Positive)
== END 2023-10-20 09:26 | disposition home or self-care (01) ==
LOC: HO.LAB 09:25
PROVIDERS: Advanced Practice Midwife; PCP Internal Medicine; Visit Provider Internal Medicine
DX: Z00.00 Encounter for general adult medical examination without abnormal findings (principal); E55.9 Vitamin D deficiency, unspecified; D64.9 Anemia, unspecified; D21.9 Benign neoplasm of connective and other soft tissue, unspecified; D50.0 Iron deficiency anemia secondary to blood loss (chronic); N93.9 Abnormal uterine and vaginal bleeding, unspecified; N94.10 Unspecified dyspareunia; Z11.3 Encounter for screening for infections with a predominantly sexual mode of transmission; Z12.4 Encounter for screening for malignant neoplasm of cervix; Z79.899 Other long term (current) drug therapy
CPT/HCPCS: 0353U; 36415; 80053; 80061; 82306; 83540; 85025; 87480; 87510; 87660; 99396

== ENCOUNTER 2023-10-20 10:28 | Outpatient (AMB) | payer OTHER, SELFPAY ==
--- NOTE | 2023-10-20 10:31 | A.OFFVIS_ITS ---
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 Flight Hostess Required: No Information Interpreted: non-clinical & clinical Bridge Teacher: Bridge Teacher Present (Aidyn) Allergies acetaminophen [From Percocet] Allergy (Intermediate, Verified 10/20/23 10:34) stomache oxycodone [From Percocet] Allergy (Intermediate, Verified 10/20/23 10:34) stomache citalopram Adverse Reaction (Intermediate, Verified 10/20/23 10:34) nausea Medication List - Last Reconciled 10/20/23 by Elsa Trejo CNM cholecalciferol (vitamin D3) 50 mcg PO DAILY 90 days ferrous sulfate 325 mg PO DAILY 90 days ibuprofen 600 mg PO TID PRN 30 days sennosides (senna) 8.6 mg PO DAILY PRN Is last menstrual period known: Yes Last menstrual period: 10/13/23 Post menopausal: No HPI 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 She just is finishing her. And it is just light spotting her periods have become more painful and crampy. She was seen last year and referred on for care for a polyp and an ultrasound revealed fibroids and she was referred by Dr. Dudley to [facility] and she is scheduled for a myomectomy removal of her fibroids this . The patient had on her possession a appointment letter citing a preop visit at [facility] and lab work that was to be done this morning at 09:00 but she went to [address] where the appointment she told her to go and was sent to the lab and they sent her away saying it needed to be within 72 hours and when she called the office afterwards they told her that she should have been sent to a different office. The preop appointment has been rescheduled to tomorrow in the meantime the patient returned to the [facility] lab and got follow-up lab work that her primary care doctor had ordered for her to check on her anemia so she has had a vena puncture already this morning and she will be having another 1 tomorrow at the preop visit. She has not sexually active and has not been for a little while nevertheless I did testing for infection at this visit as a precaution in case there is anything that is found and could be treated before she has surgery. She had her mammogram last week. She has not having any other psychiatric security nurse issues other than this she says the fibroids are 4 cm and 5 cm. [facility] Medical History Iron deficiency anemia due to chronic blood loss Back pain Obese Migraine with aura Overweight Depression Surgical History History of hysteroscopy Family History Mother Diabetes HTN (hypertension) Mental health disorder Father High cholesterol HTN (hypertension) Sister Asthma Social History Household Members: Family Housing: Apartment Alcohol intake: never Patient Tobacco Use Status: Former Tobacco user Quit Date: 5 yrs ago Tobacco use type: Cigarette e-Cigarette/Vaping Use: Never Used Second Hand Smoke Exposure: No service: No Current occupational status: employed Current occupational exposures/hazards: No Sexual orientation: Straight/Heterosexual Gender identity: Female Cognitive needs: No Hearing needs: No Vision needs: No Female Reproductive History Menstrual Age of Menarche: 11 Duration of menses: 8-10 days Date of last menstrual period: 10/13/23 control method: none Total pregnancies: 1 Full term: 1 Number of Living Children: 1 Date of last pap smear: 04/12/20 (negative) Date of Mammogram: 09/25/23 Physical Exam Vital Signs: Last Vital Signs BP 144/80 H 10/20/23 10:32 BMI result Body Mass Index 33.5 Const General: healthy appearing, comfortable, no acute distress, well developed and alert Nutritional Appearance: average body habitus Orientation/consciousness: patient oriented x3 Limitations: no limitations HEENT Head: Yes normocephalic Neck Neck: Yes normal visual inspection Chest Chest palpation & inspection: normal inspection of the chest Breast/axilla inspection: normal inspection of the breasts and normal inspection of the axillae Breast/axilla palpation: normal palpation of the breasts and normal palpation of the axillae Resp Effort & Inspection: normal respiratory effort GI Inspection: Yes normal to inspection, No Abdominal wall edema and No distended Palpation (GI): Soft to palpation and nontender Other: Vagina pink and moist slight pink staining to clear discharge sick secondary to end of menses cervix pink smooth multiparous mobile nontender uterus nontender retroverted good tone with Kegel no question of descensus at this exam where as it had been noted at previous exams. General: Yes bladder normal to palpation External Female Exam: normal external appearance and normal appearance of the urethra Speculum Exam - Vagina: normal appearance of the vagina, normal palpation and normal vaginal discharge Speculum Exam - Cervix: normal appearance of the cervix, normal palpation and nontender Bimanual exam- vagina & uterus: normal bimanual exam, normal palpation, uterine size normal, bladder normal to palpation, consistency normal, normal palpation, uterine mobility normal, uterine shape normal, No Cervical tenderness present, non-tender and no cervical motion tenderness Bimanual Exam- Adnexa, other: normal adnexae, no masses, normal and No adnexal t enderness Neuro General: patient oriented x3 Assessment & Plan Assessment & Plan (1) Well woman exam with routine gynecological exam: Code(s): Z01.419 - Encounter for gynecological examination (general) (routine) without abnormal findings (2) Fibroids: Code(s): D21.9 - Benign neoplasm of connective and other soft tissue, unspecified (3) Iron deficiency anemia due to chronic blood loss: Comment: Menorrhagia, dermoid cysts, fibroids- seeing [facility] 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 Testing done for gonorrhea chlamydia trichomoniasis Gardnerella and Mary. Patient is scheduled here this morning for psychiatric security nurse annual exam that was rescheduled from a previous visit in June when the patient says this CNM was out sick. She just is finishing her. And it is just light spotting her periods have become more painful and crampy. She was seen last year and referred on for care for a polyp and an ultrasound revealed fibroids and she was referred by Dr. Dudley to [facility] and she is scheduled for a myomectomy removal of her fibroids this . The patient had on her possession a appointment letter citing a preop visit at [facility] and lab work that was to be done this morning at 09:00 but she went to [address] where the appointment she told her to go and was sent to the lab and they sent her away saying it needed to be within 72 hours and when she called the office afterwards they told her that she should have been sent to a different office. The preop appointment has been rescheduled to tomorrow in the meantime the patient returned to the [facility] lab and got follow-up lab work that her primary care doctor had ordered for her to check on her anemia so she has had a vena puncture already this morning and she will be having another 1 tomorrow at the preop visit. She has not sexually active and has not been for a little while nevertheless I did testing for inf ection at this visit as a precaution in case there is anything that is found and could be treated before she has surgery. She had her mammogram last week. She has not having any other psychiatric security nurse issues other than this she says the fibroids are 4 cm and 5 cm. Orders: Orders Bacterial Vaginosis Panel Today Z11.3 - Encounter for screening for infections with a predominantly sexual mode of transmission CT NG by PCR Today Z11.3 - Encounter for screening for infections with a predominantly sexual mode of transmission Coding Level of Care Code Est Pt Prev Care 40-64y(28706) Diagnoses Well woman exam with routine gynecological exam Z01.419 Fibroids D21.9 Iron deficiency anemia due to chronic blood loss D50.0 Abnormal uterine bleeding (AUB) N93.9 Dyspareunia, female N94.10
[2023-10-20 10:32] VITALS: BP 144/80; BMI 33.5
== END 2023-10-20 11:24 | disposition home or self-care (01) ==
LOC: HO.HWSM 10:28
PROVIDERS: PCP Internal Medicine; Visit Provider Advanced Practice Midwife
DX: Z01.419 Encounter for gynecological examination (general) (routine) without abnormal findings (principal); D21.9 Benign neoplasm of connective and other soft tissue, unspecified; D50.0 Iron deficiency anemia secondary to blood loss (chronic); N93.9 Abnormal uterine and vaginal bleeding, unspecified; N94.10 Unspecified dyspareunia
CPT/HCPCS: 99396

== ENCOUNTER 2023-10-20 11:15 | Outpatient (REF) | payer OTHER, SELFPAY | END 2023-10-20 11:16 | disposition home or self-care (01) | LOC: HO.LNP 11:15 | PROVIDERS: Visit Provider Advanced Practice Midwife | DX: Z13.89 Encounter for screening for other disorder (principal) ==

== ENCOUNTER 2024-09-15 14:39 | Outpatient (REF) | payer OTHER, SELFPAY ==
--- OUTSIDE RECORDS SUMMARY | 2024-09-15 15:39 | XMS_ITS | Encounter Summary ---
Author Organization [facility] Address [address] [place] [address] Care Team Providers Care Phys Therapist Name Role Phone Aydee Bower DMD Primary Care Provider [phone] Encounter Details Date Type Department Care Team (Late st Contact Info) Description 11/21/2021 [facility] [address] [place] [address] Miranda Sinha DMD [address] [place], [place] [phone] Social History Tobacco Use Types Packs/Day Years [...] on filedocumented in this encounter Care Teams Phys Therapist Relationship Specialty Start Date End Date Aydee Bower DMD [address] [place] [address] PCP - General Dental Occasional Babysitter 04/24/20 documented as of this encounter
--- OUTSIDE RECORDS SUMMARY | 2024-09-15 15:39 | XMS_ITS | Encounter Summary ---
Author Organization [facility] Address [address] [place] [address] Care Team Providers Care Title Agent Name Role Phone Aydee Bower DMD Primary Care Provider [phone] Encounter Details Date Type Department Care Team (Late st Contact Info) Description 01/17/2022 Dental Interim Note [facility] Dental [address] [place] [address] Miranda Sinha DMD [address] [place], [place] [phone] Social History Tobacco Use Types Packs/Day Years [...] on filedocumented in this encounter Care Teams Title Agent Relationship Specialty Start Date End Date Aydee Bower DMD [address] [place] [address] PCP - General Dental Grid Caster 9/28/20 documented as of this encounter
--- OUTSIDE RECORDS SUMMARY | 2024-09-15 15:39 | XMS_ITS | Clinical Summary ---
Author Organization [facility] Address [address] [place] [address] Care Team Providers Care Bunch Trimmer Mold Name Role Phone Aydee Bower DMD Primary Care Provider [phone] Source Comments PLEASE NOTE, if this patient is a minor, it may be UNLAWFUL to discuss sensitive information that is contained in these records (such as FAMILY PLANNING, MENTAL HEALTH or SUBSTANCE ABUSE) with the minor patient's parent or other person without the patient's specific authorization.[facility] Medications amoxicillin (AMOXIL) 500 mg capsuleIndicati ons:Tooth infection Take 1 Capsule by mouth 3 (three) times daily 21 Capsule 10/23/2021 Active acetaminophen (TYLENOL) 500 mg capsuleIndicati ons:Toothache Take 1 Capsule by mouth every 6 (six) hours as needed for pain 25 Capsule 10/23/2021 Active Social History Tobacco Use Types Packs/Day Years Used Date Smoking Tobacco: Never Assessed Social Connections Answer Date Recorded Connectedness 0 04/17/2024 Financial Resource Strain Answer Date R ecorded Financial Resource Strain 0 2021 Stress Answer Date Recorded Stress 0 11/14/2021 Physical Activity Answer Date Recorded Physical Activity 0 11/14/2021 Food Insecurity Answer Date Recorded Food 0 04/22/2024 Transportation Needs Answer Date Record ed Transportation 0 11/14/2021 Housing Stability Answer Date Recorded Housing 0 11/14/2021 Safety and Environment Answer Date Daniel rded Safety 0 11/14/2021 Utilities Answer Date Recorded Utilities 0 11/14/2021 Employment Answer Date Recorded Stress 0 04/17/2024 Comments Unknown Sex and Gender Information Value Date Recorded Sex Assigned at Not on file Legal Sex Female 11:03 AM PST Gender Identity Not on file Sexual Orientation Not on file Plan of Treatment Health Maintenance Due Date Last Done Comments Diabetes Screening 1980 HPV Screening 1979 Hepatitis C Screening 1979 Lipid Screening 1979 Pap + HPV 1979 Tobacco Screening 1979 HIV Screening 11/15/1994 Relationship Safety Screening/Counseling 11/15/1994 Annual Preventive Care Visit 11/15/1997 Hypertension Screening (#1) 11/15/1997 Imm-DTaP/Tdap/Td (1 - Tdap) 11/15/1998 Imm-Hepatitis B (1 of 3 - 19+ 3-dose series) 9 Cervical Cancer Screening 11/15/2000 Pap Smear 11/15/2000 Breast Cancer Screening (Mammogram) 2019 [id number] (2023- season) 2024 Imm-Influenza (#1) 2024 Alcohol and Drug Screen 07/28/2024 Depression Annual Screen 07/28/2024 Cervical Ablation/Cold-Knife Conization Discontinued Cervical Cryotherapy Discontinued Colposcopy Discontinued Endometrial Biopsy Discontinued Excision/Leep Discontinued HPV Genotyping Discontinued Vaginal Pap Discontinued Vulvoscopy Discontinued Insurance [place] Care Teams Bunch Trimmer Mold Relationship Specialty Start Date End Date Aydee Bower DMD [address] [place] [address] PCP - General Dental Outsole Cementer 04/24/20
--- OUTSIDE RECORDS SUMMARY | 2024-09-15 15:39 | XMS_ITS | Encounter Summary ---
Author Organization [facility] Address [address] [place] [address] Care Team Providers Care Associate Professor Of Philosophy Name Role Phone Aydee Bower SALIMA Primary Care Provider [phone] Encounter Details Date Type Department Care Team (Late st Contact Info) Description 11/15/2021 Dental Interim Note [facility] Main Dental [address] [place] [address] Miranda Sinha DMD [address] [place], [place] [phone] Social History Tobacco Use Types Packs/Day Years [...] on filedocumented in this encounter Care Teams Associate Professor Of Philosophy Relationship Specialty Start Date End Date Aydee Bower DMD [address] [place] [address] PCP - General Dental Balloon Design Printer 04/24/20 documented as of this encounter
--- OUTSIDE RECORDS SUMMARY | 2024-09-15 15:39 | XMS_ITS | Encounter Summary ---
Author Organization [facility] Address [address] [place] [address] Care Team Providers Care Art Appraiser Name Role Phone Aydee Bower SALIMA Primary Care Provider [phone] Encounter Details Date Type Department Care Team (Late st Contact Info) Description 11/14/2021 Dental Interim Note [facility] Main Dental [address] [place] [address] Miranda Sinha DMD [address] [place], [place] [phone] Social History Tobacco Use Types Packs/Day Years [...] on filedocumented in this encounter Care Teams Art Appraiser Relationship Specialty Start Date End Date Aydee Bower DMD [address] [place] [address] PCP - General Dental Burning Supervisor 04/24/20 documented as of this encounter
--- OUTSIDE RECORDS SUMMARY | 2024-09-15 15:39 | XMS_ITS | Encounter Summary ---
Author Organization [facility] Address [address] [place] [address] Care Team Providers Care Marketing Director Assisted Living Name Role Phone Aydee Bower DMD Primary Care Provider [phone] Encounter Details Date Type Department Care Team (Late st Contact Info) Description 12/14/2021 Dental Inter[facility] [address] [place] [address] Miranda Sinha DMD [address] [place], [place] [phone] Social History Tobacco Use Types Packs/Day Years [...] on filedocumented in this encounter Care Teams Marketing Director Assisted Living Relationship Specialty Start Date End Date Aydee Bower DMD [address] [place] [address] PCP - General Dental Battery Recharger 04/24/20 documented as of this encounter
[2024-09-16 03:11] LABS: CT PCR NOT DETECTED (Not Detect.); NG PCR NOT DETECTED (Not Detect.)
[2024-09-16 13:58] LABS: Bacterial Vaginosis PCR NEGATIVE (Negative); Candida Group PCR DETECTED (Not Detect); Candida glab krusei PCR NOT DETECTED (Not Detect); Trichomonas vaginalis PCR NOT DETECTED (Not Detect)
== END 2024-09-15 14:40 | disposition home or self-care (01) ==
LOC: HO.LAB 14:39
PROVIDERS: PCP Internal Medicine; Visit Provider Advanced Practice Midwife
DX: N89.8 Other specified noninflammatory disorders of vagina (principal); B37.31 Acute candidiasis of vulva and vagina; D50.0 Iron deficiency anemia secondary to blood loss (chronic)
CPT/HCPCS: 81515; 87491; 87591; 99212

== ENCOUNTER 2024-09-15 14:39 | Outpatient (AMB) | payer OTHER, SELFPAY ==
--- OUTSIDE RECORDS SUMMARY | 2024-09-15 14:41 | XMS_ITS | Patient Health Record ---
Author Organization [facility] Address [address] [place] [address] Care Team Providers Care Wax Pattern Repairer Name Role Phone Dianne Herrera Primary Care Provider Tim Espinosa Unavailable [phone] REASON FOR REFERRAL No Information SOCIAL HISTORY Sex Assigned At : Social History Observation Description Sex Assigned At Unknown PLAN OF TREATMENT No Information Insurance Providers Payer Name Payer Address Payer Phone Subscriber Number Group Number Insured Name Patient Relationship to Insured Coverage Start Date Coverage End Date [facility] [address] [address] [place], [place] [id number] EMI CLINE Self - patient is the insured
--- OUTSIDE RECORDS SUMMARY | 2024-09-15 14:41 | XMS_ITS | Encounter Summary ---
Author Organization [facility] Address [address] [place] [address] Care Team Providers Care Mandrel Maker Name Role Phone Aydee Bower DMD Primary Care Provider [phone] Encounter Details Date Type Department Care Team (Late st Contact Info) Description 12/14/2021 Dental Interim Note [facility] [address] [facility] [address] [place] [address] Miranda Sinha DMD [address] [place], [place] [id number] Social History Tobacco Use Types Packs/Day Years Used Date Smoking Tobacco: Never Assessed Social Connections Answer Date Recorded Social Connections and Isolation 0 11/14/2021 Financial Resource Strain Answer Date R ecorded Financial Resource Strain 0 2021 Stress Answer Date Recorded Stress 0 11/14/2021 Physical Activity Answer Date Recorded Physical Activity 0 11/14/2021 Food Insecurity Answer Date Recorded Food 0 11/14/2021 Transportation Needs Answer Date Record ed Transportation 0 11/14/2021 Housing Stability Answer Date Recorded Housing 0 11/14/2021 Safety and Environment Answer Date Daniel rded Safety 0 11/14/2021 Utilities Answer Date Recorded Utilities 0 11/14/2021 Employment Answer Date Recorded Employment 0 11/14/2021 Comments Unknown Sex and Gender Information Value Date Recorded Sex Assigned at Not on file Legal Sex Female 11:03 AM PST Gender Identity Not on file Sexual Orientation Not on file documented as of this encounter Plan of Treatment Not on file documented as of this encounter Visit Diagnoses Not on filedocumented in this encounter Care Teams Mandrel Maker Relationship Specialty Start Date End Date Aydee Bower DMD [address] [place] [address] PCP - General Dental Aerospace Stress Engineer 04/24/20 documented as of this encounter
--- OUTSIDE RECORDS SUMMARY | 2024-09-15 14:41 | XMS_ITS ---
Author Organization [facility] Address [address] [place] [id number] Care Team Providers Care Real Estate Asset Manager Name Role Phone Dianne Herrera Primary Care Provider Unavailab Tim Hagen Unavailable [phone] REASON FOR VISIT anemia Encounters Encounter Location Date Provider Diagnosis [facility] [address] [place] [phone] 05/30/2023 Tim Byrd PLAN OF TREATMENT No Information
--- OUTSIDE RECORDS SUMMARY | 2024-09-15 14:41 | XMS_ITS | Encounter Summary ---
Author Organization [facility] Address [address] [place] [address] Care Team Providers Care Peer Health Promoter Name Role Phone Aydee Bower DMD Primary Care Provider [phone] Encounter Details Date Type Department Care Team (Late st Contact Info) Description 01/17/2022 Dental Interim [address] [facility] [address] [place] [address] Miranda Sinha DMD [address] [place], [place] [phone] Social History Tobacco Use Types Packs/Day Years [...] on filedocumented in this encounter Care Teams Peer Health Promoter Relationship Specialty Start Date End Date Aydee Bower DMD [address] [place] [address] PCP - General Dental Heavy Forger 9/28/20 documented as of this encounter
--- OUTSIDE RECORDS SUMMARY | 2024-09-15 14:41 | XMS_ITS | Encounter Summary ---
Author Organization [facility] Address [address] [place] [address] Care Team Providers Care Pipeline Integrity Engineer Name Role Phone Aydee Bower SALIMA Primary Care Provider [phone] Encounter Details Date Type Department Care Team (Late st Contact Info) Description 11/15/2021 Dental Interim Note [facility] [address] [place] [address] Miranda Sinha DMD [address] [place], [place] [phone] Social History Tobacco Use Types Packs/Day Years [...] on file Sexual Orientation Not on file COVID-19 Exposure Response Date Recorded In the last 10 days, have yo u been in contact with someone who was confirmed or suspected to have Coronavirus/COVID-19? No / Unsure 10/20/2021 9:04 AM EDT documented as of this encounter Plan of Treatment Not on file documented as of this encounter Visit Diagnoses Not on filedocumented in this encounter Care Teams Pipeline Integrity Engineer Relationship Specialty Start Date End Date Aydee Bower DMD [address] [place] [address] PCP - General Dental Car Shifter 04/24/20 documented as of this encounter
--- OUTSIDE RECORDS SUMMARY | 2024-09-15 14:41 | XMS_ITS | Encounter Summary ---
Author Organization [facility] Address [address] [place] [address] Care Team Providers Care Leather Skinner Name Role Phone Aydee Bower SALIMA Primary Care Provider [phone] Encounter Details Date Type Department Care Team (Late st Contact Info) Description 11/14/2021 Dental Interim Note [facility] Main Dental [address] [place] [address] Miranda Sinha DMD [address] [place], [place] [phone] Social History Tobacco Use Types Packs/Day Years [...] on file documented as of this encounter Procedures Procedure Name Priority Date/Time Associated Diagnosis Comments 29 O COMPOSITE - WISDOM (NON BILLABLE) Routine 11/14/2021 12:00 AM EDT 14 LO COMPOSITE - WISDOM (NON BILLABLE) Routine 11/14/2021 12:00 AM EDT 5 DO COMPOSITE - WISDOM (NON BILLABLE) Routine 11/14/2021 12:00 AM EDT documented in this encounter Visit Diagnoses Not on filedocumented in this encounter Care Teams Leather Skinner Relationship Specialty Start Date End Date Aydee Bower DMD [address] [place] [address] PCP - General Dental Roadway Technician 04/24/20 documented as of this encounter
--- OUTSIDE RECORDS SUMMARY | 2024-09-15 14:41 | XMS_ITS | Encounter Summary ---
Author Organization [facility] Address [address] [place] [address] Care Team Providers Care Sleeve Baster Name Role Phone Aydee Bower DMD Primary Care Provider [phone] Encounter Details Date Type Department Care Team (Late st Contact Info) Description 11/21/2021 [facility] [address] [place] [address] Miranda Sinha DMD [address] [place], [place] [phone] Social History Tobacco Use Types Packs/Day Years [...] on filedocumented in this encounter Care Teams Sleeve Baster Relationship Specialty Start Date End Date Aydee Bower DMD [address] [place] [address] PCP - General Dental It Teacher 04/24/20 documented as of this encounter
--- OUTSIDE RECORDS SUMMARY | 2024-09-15 14:42 | XMS_ITS ---
Author Organization [facility] Address [address] [place] [address] Care Team Providers Care Riveter Name Role Phone Dianne Herrera Primary Care Provider Unavailab Tim Hagen Unavailable [phone] REASON FOR VISIT didn't know anything about appt Encounters Encounter Location Date Provider Diagnosis [facility] [address] [place] [address] 05/30/2023 Tmi Byrd PLAN OF TREATMENT No Information
--- NOTE | 2024-09-15 14:49 | MHC.OFFVIS ---
Vital Signs 09/15/24 14:51 Height 5 ft 3 in Weight 192 lb BMI 34.0 BP 126/78 Intake Visit Reasons: vaginal itching Roll Up Machine Operator Required: No Roll Up Machine Operator Services: Roll Up Machine Operator Present Information Interpreted: clinical only Product Marketing Programs Manager: Product Marketing Programs Manager Present Allergies acetaminophen [From Percocet] Allergy (Intermediate, Verified 09/15/24 14:52) stomache oxycodone [From Percocet] Allergy (Intermediate, Verified 09/15/24 14:52) stomache citalopram Adverse Reaction (Intermediate, Verified 09/15/24 14:52) nausea Medication List - Last Reconciled 09/15/24 by Elsa Trejo CNM cholecalciferol (vitamin D3) 50 mcg PO DAILY 90 days ferrous sulfate 325 mg PO DAILY 90 days ibuprofen 600 mg PO TID PRN 30 days sennosides (senna) 8.6 mg PO DAILY PRN Is last menstrual period known: Yes Last menstrual period: 08/24/24 HPI HPI vaginal itching: Details: Patient is here because she has got a very itchy rash in her right groin that started when she was in [place] bringing her mother be back in [place] to live in a prison near where she could be with people she knows and food she likes and in the environment she wanted to be an.. She also has vaginal itching that is bothersome to and a discharge. She has not been sexually active in a very very long time.. She had surgery to remove 2 fibroids that turned out to be larger than they appeared on the scans, at [facility] last year and her periods have gotten much better instead of being 10 days there 2 days and much armhole feller handstitching machine.. [facility] Medical History Iron deficiency anemia due to chronic blood loss Back pain Obese Migraine with aura Overweight Depression Surgical History History of hysteroscopy Family History Mother Diabetes HTN (hypertension) Mental health disorder Father High cholesterol HTN (hypertension) Sister Asthma Social History Household Members: Family Housing: Apartment Alcohol intake: never Patient Tobacco Use Status: Former Tobacco user Tobacco use type: Cigarette e-Cigarette/Vaping Use: Never Used Second Hand Smoke Exposure: No service: No Current occupational status: employed Current occupational exposures/hazards: No Sexual orientation: Straight/Heterosexual Gender identity: Female Cognitive needs: No Hearing needs: No Vision needs: No Female Reproductive History Menstrual Age of Menarche: 11 Duration of menses: 3-5 days Date of last menstrual period: 08/24/24 control method: none Total pregnancies: 1 Full term: 1 Physical Exam Vital Signs: Last Vital Signs BP 126/78 09/15/24 14:51 BMI result Body Mass Index 34.0 Other: Externally patient has bright inflamed reddened area right groin that is shiny as if it has been covered with Vaseline or other ointment. Vaginal introitus is reddened as well consistent with yeast infection and tiny little white curd visible vagina inside is less inflamed testing done for gonorrhea chlamydia trichomoniasis as well as Mary and bacterial vaginosis will treat for Mary.. Assessment & Plan Assessment & Plan (1) Vaginal itching: Code(s): N89.8 - Other specified noninflammatory disorders of vagina Category: Medical (2) Yeast infection involving the vagina and surrounding area: Comment: And separately in right groin area very inflamed. Code(s): B37.31 - Acute candidiasis of vulva and vagina Category: Medical (3) Iron deficiency anemia due to chronic blood loss: Comment: Menorrhagia, dermoid cysts, fibroids- seeing [facility] FLAT IRONER- 05/19 Following up clam shucker expected -surgery; 08/1924 patient had surgery last spring at [facility] for removal of 2 large fibroids per her account and her bleeding has much improved. Code(s): D50.0 - Iron deficiency anemia secondary to blood loss (chronic) Category: Medical Plan I recommend the patientShower with cool water in rinse whenever ointment she put on it off pat dry and apply miconazole powder topically to the sternal area I am also prescribing her Diflucan pill to take to treat the yeast from the inside out as well. . Her insurance appears not to cover the recommended treatments so I am going to write down for her miconazole [address] vaginally and also miconazole powder 2% till place in the groin area that she can get over the counter and that she is place that I have seen them personally is [facility]. She will be scheduling her annual whenever it is due. Orders: Orders Bacterial Vaginosis Panel Today N89.8 - Other specified noninflammatory disorders of vagina CT NG by PCR Today N89.8 - Other specified noninflammatory disorders of vagina Medications: New miconazole nitrate 2% 1 appl topical BID 85 grams 3RF fluconazole may repeat second dose 72 hrs after first dose if symptoms persist 150 mg PO Q3D 2 doses 2 tabs 3RF Coding Level of Care Code Est Pt Level 3 (28221) Diagnoses Vaginal itching N89.8 Yeast infection involving the vagina and surrounding area B37.31 Iron deficiency anemia due to chronic blood loss D50.0 Time Spent (min) 30 Comment Discussidom her symptoms treatment and treatment options if her insurance does not cover
[2024-09-15 14:51] VITALS: BP 126/78; BMI 34.0
== END 2024-09-15 16:05 | disposition home or self-care (01) ==
PROVIDERS: PCP Internal Medicine; Visit Provider Advanced Practice Midwife
DX: N89.8 Other specified noninflammatory disorders of vagina (principal); B37.31 Acute candidiasis of vulva and vagina; D50.0 Iron deficiency anemia secondary to blood loss (chronic)
CPT/HCPCS: 99213

== ENCOUNTER → 2024-09-30 12:00 | Outpatient (BNV) | payer OTHER, SELFPAY | PROVIDERS: PCP Internal Medicine; Visit Provider Internal Medicine | DX: Z12.31 Encounter for screening mammogram for malignant neoplasm of breast (principal) | CPT/HCPCS: 77063; 77067 ==

== ENCOUNTER 2024-09-30 12:02 | Outpatient (REF) | payer OTHER, SELFPAY ==
--- OUTSIDE RECORDS SUMMARY | 2024-09-30 14:35 | XMS_ITS | Encounter Summary ---
Author Organization [facility] Address [address] [place] [address] Care Team Providers Care Trains Service Conductor Name Role Phone Aydee Bower DMD Primary Care Provider [phone] Encounter Details Date Type Department Care Team (Late st Contact Info) Description 01/17/2022 Dental Interim Note [facility] Dental [address] [place] [address] Miranda Sinha DMD [address] [place], [place] [phone] Social History Tobacco Use Types Packs/Day Years [...] on filedocumented in this encounter Care Teams Trains Service Conductor Relationship Specialty Start Date End Date Aydee Bower DMD [address] [place] [address] PCP - General Dental Nozzle Worker 9/28/20 documented as of this encounter
--- OUTSIDE RECORDS SUMMARY | 2024-09-30 14:35 | XMS_ITS ---
Author Organization [facility] Address [address] [place] [address] Care Team Providers Care Invisible Braces Orthodontist Name Role Phone Dianne Herrera Primary Care Provider Unavailab Tim Hagen [phone] REASON FOR VISIT anemia Encounters Encounter Location Date Provider Diagnosis [facility] [address] [place] [address] 05/30/2023 Tmi Byrd Plan Of Treatment No Information Progress Notes * EMI CLINEDOB:[birth year] (43 yo F)Acc No.[id number]:05/30/2023 Progress Notes Patient:?EMI CLINE Provider:?Tim Byrd MD :1980???Age:42 Y???Sex:Female D ate:05/30/2023 Address:[address] [place] [address], [facility] Pcp:Dianne Florence Subjective: * Chief Complaints: * ???1. Anemia. * Medical History:? Objective: * Vitals:? Assessment: Plan: * Treatment: * * The named appointment provid er may or may not be the originator of this progress note, and it is not deemed complete until electronically signed by the appointment provider. Sign off status: Pending * Provider:?Tim Byrd MD Date:? 023 Generated for Ward whitman/Adilson/Ledyitting on:?09/30/2024 02:35 PM EST
--- OUTSIDE RECORDS SUMMARY | 2024-09-30 14:35 | XMS_ITS | Clinical Summary ---
Author Organization [facility] Address [address] [place] [address] Care Team Providers Care Relay Motorman Name Role Phone Aydee Bower DMD Primary Care Provider [phone] Source Comments PLEASE NOTE, if this patient [...] Smear 11/15/2000 Breast Cancer Screening (Mammogram) 2019 [id number] (2023- season) 2024 Imm-Influenza (#1) 2024 Alcohol and Drug Screen 07/28/2024 Depression Annual Screen 07/28/2024 Cervical Ablation/Cold-Knife Conization Discontinued Cervical Cryotherapy Discontinued Colposcopy Discontinued Endometrial Biopsy Discontinued Excision/Leep Discontinued HPV Genotyping Discontinued Vaginal Pap Discontinued Vulvoscopy Discontinued Insurance [place] Care Teams Relay Motorman Relationship Specialty Start Date End Date Aydee Bower DMD [address] [place] [address] PCP - General Dental Cloth Edge Singer 04/24/20
--- OUTSIDE RECORDS SUMMARY | 2024-09-30 14:35 | XMS_ITS | Patient Health Record ---
Author Organization [facility] Address [address] [place] [address] Care Team Providers Care Machine Design Teacher Name Role Phone Dianne Herrera Primary Care Provider UnavailTim Alvarado Unavailable [phone] Reason For Referral No Information Plan Of Treatment No Information Insurance Providers Payer Name Payer Address Payer Phone Subscriber Number Group Number Insured Name Patient Relationship to Insured Coverage Start Date Coverage End Date [facility] [address] [address] [place], [place] [id number] EMI CLINE Self - patient is the insured
--- OUTSIDE RECORDS SUMMARY | 2024-09-30 14:35 | XMS_ITS | Encounter Summary ---
Author Organization [facility] Address [address] [place] [address] Care Team Providers Care Acute Care Nurse Name Role Phone Aydee Bower DMD Primary Care Provider [phone] Encounter Details Date Type Department Care Team (Late st Contact Info) Description 12/14/2021 Dental Interim [facility] [address] [place] [address] Miranda Sinha DMD [address] [place], [place] [phone] Social History Tobacco Use Types Packs/Day Years [...] on filedocumented in this encounter Care Teams Acute Care Nurse Relationship Specialty Start Date End Date Aydee Bower DMD [address] [place] [address] PCP - General Dental Reel Operator 04/24/20 documented as of this encounter
--- OUTSIDE RECORDS SUMMARY | 2024-09-30 14:35 | XMS_ITS | Encounter Summary ---
Author Organization [facility] Address [address] [place] [address] Care Team Providers Care Portable Grinding Machine Operator Name Role Phone Aydee Bower DMD Primary Care Provider [phone] Encounter Details Date Type Department Care Team (Late st Contact Info) Description 11/21/2021 Dental Interim [facility] [address] [place] [address] Miranda Sinha DMD [address] [place], [place] [phone] Social History Tobacco Use Types Packs/Day Years [...] on filedocumented in this encounter Care Teams Portable Grinding Machine Operator Relationship Specialty Start Date End Date Aydee Bower DMD [address] [place] [address] PCP - General Dental Post Hole Digger 04/24/20 documented as of this encounter
--- OUTSIDE RECORDS SUMMARY | 2024-09-30 14:35 | XMS_ITS | Encounter Summary ---
Author Organization [facility] Address [address] [place] [address] Care Team Providers Care Roller Bearing Inspector Name Role Phone Aydee Bower SALIMA Primary Care Provider [phone] Encounter Details Date Type Department Care Team (Late st Contact Info) Description 11/15/2021 Dental Interim Note [facility] Main Dental [address] [place] [address] Miranda Sinha DMD [address] [place], [place] [phone] Social History Tobacco Use Types Packs/Day Years [...] on filedocumented in this encounter Care Teams Roller Bearing Inspector Relationship Specialty Start Date End Date Aydee Bower DMD [address] [place] [address] PCP - General Dental Landscape Technician 04/24/20 documented as of this encounter
--- OUTSIDE RECORDS SUMMARY | 2024-09-30 14:35 | XMS_ITS | Encounter Summary ---
Author Organization [facility] Address [address] [place] [address] Care Team Providers Care Neon Molder Name Role Phone Aydee Bower SALIMA Primary Care Provider [phone] Encounter Details Date Type Department Care Team (Late st Contact Info) Description 11/14/2021 Dental Interim Note [facility] Main Dental [address] [place] [address] Miranda Sinha DMD [address] [place], [place] [phone] Social History Tobacco Use Types Packs/Day Years [...] on filedocumented in this encounter Care Teams Neon Molder Relationship Specialty Start Date End Date Aydee Bower DMD [address] [place] [address] PCP - General Dental Fabricator Special Items 04/24/20 documented as of this encounter
--- OUTSIDE RECORDS SUMMARY | 2024-09-30 14:35 | XMS_ITS ---
Author Organization [facility] Address [address] [place] [address] Care Team Providers Care Voice Over Artist Name Role Phone Dianne Herrera Primary Care Provider Unavailab Tim Hagen [phone] REASON FOR VISIT didn't know anything about appt Encounters Encounter Location Date Provider Diagnosis [facility] [address] [place] [address] 05/30/2023 Tim Byrd Plan Of Treatment No Information Progress Notes * EMI CLINEDOB:[birth year] (42 yo F)Acc No.[id number]:05/30/2023 Patient:?EMI CLINE :1980???Age:42 Y???Sex:Female Address:[address] [place] [address], [facility] [place], [address] * true * Date:? Generated for Ward whitman/Adilson/eTransmitting on:?09/30/2024 02:35 PM EST
== END 2024-09-30 12:03 | disposition home or self-care (01) ==
LOC: HO.MAMMO 12:02
PROVIDERS: PCP Internal Medicine; Visit Provider Internal Medicine
DX: Z12.31 Encounter for screening mammogram for malignant neoplasm of breast (principal)
CPT/HCPCS: 77063; 77067

== ENCOUNTER 2024-10-18 13:02 | Outpatient (AMB) | payer OTHER, SELFPAY ==
[2024-10-18 13:13] VITALS: BP 126/80; BMI 33.7
--- NOTE | 2024-10-18 13:13 | A.OFFPC_ITS ---
Vital Signs 10/18/24 13:13 Height 5 ft 3 in Weight 190 lb BMI 33.7 BP 126/80 Blood Pressure Location Lt brachial Position Sitting Intake Visit Reasons: Physical Exam Intake Note: Patient here for a physical exam Quality Analyst/Technical Writer Required: Yes Quality Analyst/Technical Writer Language: Road Cutter Name: Dianne Florence MD Information Interpreted: non-clinical & clinical Accompanied by: Self / Same As Patient Allergies acetaminophen [From Percocet] Allergy (Intermediate, Verified 10/18/24 13:40) stomache oxycodone [From Percocet] Allergy (Intermediate, Verified 10/18/24 13:40) stomache citalopram Adverse Reaction (Intermediate, Verified 10/18/24 13:40) nausea Medication List - Last Reconciled 10/18/24 by Dianne Florence MD ferrous sulfate 325 mg PO DAILY 90 days ibuprofen 600 mg PO TID PRN 30 days sennosides (senna) 8.6 mg PO DAILY PRN Tobacco use date assessed: 10/18/24 Dental Screening Dental Screen Date: 10/18/24 Did you have a dental visit in the last 12 months?: Yes Did you have a dental problem in the last 6 months where you did not have access to dental care?: No Was dental information given to patient?: Patient has dentist HPI HPI Comments History of Present Illness Details The patient is a 43-year-old female presenting for a wellness visit focused on ensuring her vaccinations are up to date, specifically the tetanus vaccine. She could not verify her vaccination records and acknowledged not having an alternative healthcare provider for such matters. Her tetanus vaccination is past due, and she intended to receive it during this visit. Regarding her medical history, she revealed experiencing mild depression, evidenced by a recent PHQ-9 score of 4. Surgical history includes a hysteroscopy, with no complications reported. The patient has a pertinent family history of cardiovascular diseases and diabetes, potentially increasing her risk profile. She has an allergy to Percocet and notable intolerance to Citalopram, resulting in nausea. The patient has attended regular screenings, including a mammogram which returned negative, indicating no abnormalities. Blood tests indicated normal hemoglobin and glucose levels but slightly reduced ferritin, correlating with some reported fatigue. Prior vitamin D levels were stable, and she denied any alcohol use and confirmed cessation of smoking habits. These factors support her commitment to health maintenance and prophylactic measures. - Tetanus immunization is due, planned a dministration during the visit - Negative mammogram recorded on September 30 - Routine screening with hemoglobin at 1 2.8 and glucose level at 99, indicating normal findings - Ferritin levels noted to be low previo usly, monitoring advised - PHQ-9 assessment indicated mild depres evaristo with a score of 4 [facility] Medical History (Updated 10/18/24 @ 15:02 by Dianne Florence MD) Iron deficiency anemia due to chronic blood loss Back pain Obese Migraine with aura Overweight Depression Surgical History History of hysteroscopy Family History Mother Diabetes HTN (hypertension) Mental health disorder Father High cholesterol HTN (hypertension) Sister Asthma Social History Household Members: Family Housing: Apartment Alcohol intake: never Patient Tobacco Use Status: Former Tobacco user Tobacco use type: Cigarette e-Cigarette/Vaping Use: Never Used Second Hand Smoke Exposure: No service: No Current occupational status: employed Current occupational exposures/hazards: No Sexual orientation: Straight/Heterosexual Gender identity: Female Cognitive needs: No Hearing needs: No Vision needs: No Female Reproductive History Menstrual Age of Menarche: 11 Questionnaire PHQ-9 Over the last 2 weeks, how often have you been bothered by any of the following problems? 1. Little interest or pleasure in doing things: not at all 2. Feeling down, depressed, or hopeless: not at all 3. Trouble falling or staying asleep, or sleeping too much: several days 4. Feeling tired or having little energy: more than half the days 5. Poor appetite or overeating: several days 6. Feeling bad about yourself - or that you are a failure or have let yourself or your family down: not at all 7. Trouble concentrating on things, such as reading the newspaper or watching television: not at all 8. Moving or speaking so slowly that other people could have noticed. Or the opposite - being so fidgety or restless that you have been moving around a lot more than usual: not at all 9. Thoughts that you would be better off or of hurting yourself in some way: not at all Total score: 4 Depression Screening Interpretation: Positive Depression Screening Follow-up: Existing condition and Follow-up Visit Requested Depression Screening Done: Yes 44125 - PHQ-9 Billing: Yes Source: Developed by Drs. Tim Crabtree, Alia Keane, Prashanth Sanchez and colleagues, with an educational dayana from [employer] Thrive Questionnaire Date Thrive assessed: 10/11/24 I am a: Patient What is your living situation today?: I have a steady place to live Within the past 12 months, did the food you bought not last and you didn't have the money to get more?: Never true Within the past 12 months, did you worry whether your food would run out before you got money to buy more?: Never true Do you have trouble paying for medicines?: No Do you have trouble getting transportation to medical appointments?: No Do you have trouble paying your heating and electricity bill?: No Do you have trouble taking care of your child, family member or friend?: No Do you have trouble with day-to-day activities such as bathing, preparing meals, shopping, managing finances, etc.?: No Are you currently unemployed and looking for a job?: No Are you interested in more education?: Yes Please select the resources that you would like help with: Education Currently or been in a relationship where the following occur: No concerns reported THRIVE Score: 0 AUDIT C Alcohol Use Questionnaire (AUDIT-C) 1. How often do you have a drink containing alcohol?: Monthly or less 2. How many drinks containing alcohol do you have on a typical day when you are drinking?: 1 or 2 3. How often do you have six or more drinks on one occasion?: Less than monthly Total Score: 2 Score Reviewed/Action Taken: No DEXTER-7 AMB Questionnaire DEXTER-7 Date DEXTER - 7 assessed: 10/18/24 Feeling nervous, anxious, or on edge: 0 = Not at all Not being able to stop or control worryin = More than half the days Worrying too much about different things: 2 = More than half the days Trouble relaxin = Several days Being so restless that it is hard to sit still: 1 = Several days Becoming easily annoyed or irritable: 1 = Several days Feeling afraid as if something awful might happen: 2 = More than half the days Total DEXTER-7 score (0-4 normal; 5-9 mild; 10-14 moderate; 15-21 severe): 9 Source: Developed by Drs. Tim Crabtree, Alia Keane, Prashanth Sanchez and colleagues, with an educational dayana from [employer] DEXTER-7 Assessment Billing DEXTER-7 Assessment Tool: DEXTER-7 Assessment 91034 Review of Systems Const All systems reviewed & are unremarkable except as noted in HPI and below Card Denies chest pain at rest, Denies chest pain with activity, Denies edema, Denies irregular heart rhythm, Denies claudication, Denies dyspnea, Denies dyspnea on exertion, Denies orthopnea, Denies paroxysmal nocturnal dyspnea and Denies slow heart rate Resp Denies cough, Denies dyspnea and Denies dyspnea on exertion GI Denies abdominal pain, Denies change in bowel habits, Denies excessive flatus, Denies nausea and Denies vomiting Denies urinary incontinence, Denies urinary hesitancy and Denies urinary urgency Musc Denies abnormal gait, Denies atrophy, Denies deformity and Denies limited range of motion Skin/Breast Denies bleeding lesions, Denies changing lesions and Denies rash Neuro Denies abnormal gait, Denies behavioral changes and Denies lack of coordination Psych Denies behavioral changes Endo Denies cold intolerance Physical exam (Primary Care) Vital Signs: Last Vital Signs BP 126/80 10/18/24 13:13 BMI result Body Mass Index 33.7 BMI Assessment/Plan discussion: High BMI High, discussed plan: lifestyle, weight reduction, dietary and physical activity Tobacco/Smoking Status: Tobacco use Status Tobacco use date assessed 10/18/24 10/18/24 13:19 Patient Tobacco Use Status Former Tobacco user 10/18/24 13:19 Tobacco use type Cigarette 10/18/24 13:19 e-Cigarette/Vaping Use Never Used 10/18/24 13:19 PHQ-9: PHQ-9 Score PHQ-9: Total score 4 10/18/24 13:55 Depression Screening Interpretation: Positive Depression Screening Follow-up: Existing condition and Follow-up Visit Requested Thrive Assessment: Date of Thrive Assessment Date Thrive assessed 10/11/24 10/18/24 13:19 Currently or been in a relationship where the following occur: No concerns reported HENMT Head: Yes normal to inspection, Yes normocephalic and Yes atraumatic Ears: external ears normal Eyes General: appearance normal, both eyes and all related structures Eyelids: Yes eyelids normal Conjunctivae: conjunctivae normal Neck Neck: Yes normal visual inspection and Yes supple Resp Effort & Inspection: normal respiratory effort Auscultation: clear to auscultation bilaterally Cardio Jugular venous distension: no JVD Rate: regular rate Rhythm: regular rhythm Heart sounds: S1 normal heart sound present and S2 normal heart sound present GI Inspection: Yes normal to inspection Palpation (GI): Soft to palpation and nontender Auscultation: normal bowel sounds Skin General skin exam: no rashes or lesions noted Neuro General: no focal motor deficits Extrem General: Yes full ROM Psych Appearance: grossly normal Immunizations Boostrix Tdap 2.5 Lf unit-8 mcg-5 Lf/0.5 mL intramuscular syringe Performing Provider: Dianne Florence MD [facility] Administered by: SANDI Ruiz on 10/18/24 14:02 Dose Route Admin Location Dispensed Lot Number Expiration Date NDC Manager Psychiatry 0.5 mL IM Left Deltoid 0.5 mL [id number] 01/08/27 [id number] [employer] VIS Given Date VIS Provided VIS Publication Date 10/18/24 Single Vaccine 21 Eligibility Eligibility Date Funding Source Not [facility] Eligible 10/18/24 Private Coding Level of Care Code Est Pt Level 3 (13758) Est Pt Prev Care 40-64y(05940) Diagnoses Physical exam Z00.00 Mild major depression F32.0 Muscle cramps R25.2 Blurry vision H53.8 Additional Codes DEXTER-7 Assessment Billing - DEXTER-7 Assessment Tool: DEXTER-7 Assessment 51761 ([id number]) PHQ-9 - 65043 - PHQ-9 Billing: Yes ([id number]) Time Spent (min) 33 Assessment & Plan Assessment & Plan (1) Physical exam: Code(s): Z00.00 - Encounter for general adult medical examination without abnormal findings Category: Medical (2) Mild major depression: Code(s): F32.0 - Major depressive disorder, single episode, mild Category: Medical (3) Muscle cramps: Code(s): R25.2 - Cramp and spasm Category: Medical (4) Blurry vision: Code(s): H53.8 - Other visual disturbances Category: Medical Plan Today, the patient received the overdue tetanus vaccine to prevent future complications. Depression findings were recognized as mild, and continued observation without medication was determined appropriate. The importance of routine screenings, particularly in light of her familial cardiovascular risks, was highlighted. Although presenting symptoms such as fatigue were identified, her lab results, including normal hemoglobin and D levels, required no immediate action. Lifestyle adjustments, with possible follow-up exploration into her thyroid status, were noted should current trends persist. Her next labs will include a cholesterol screening to further assess cardiovascular risk and adjust future care directives. Patient was informed and verbally consented to the use of an ambient scribe for clinic note documentation during this visit. During this consultation, I discussed the initiation of the tetanus vaccine, emphasizing the benefits of having up-to-date vaccinations to avoid preventable diseases. We reviewed the mild depression diagnosis, and the patient seemed understanding of maintaining regular check-ins without pharmacological intervention currently due to the low PHQ-9 score. Concerns about potential anemia were addressed with her ferritin levels showing slight reduction, but without cause for alarm given current health status. Preventative measures were proposed, avoiding unnecessary supplementation as her hemoglobin levels were normal. She understood the value of monitoring her thyroid health given some symptoms, and consented to future re-checks. We concluded the session by considering the patient's family health history as a foundation for upcoming lab assessments to tailor her care holistically, focusing on lifestyle over pharmacotherapy unless lab results dictate otherwise. Orders: Orders Vitamin D 25-OH Total Today E55.9 - Vitamin D deficiency, unspecified Lipid Panel Today E78.5 - Hyperlipidemia, unspecified, Z00.00 - Encounter for g eneral adult medical examination without abnormal findings Magnesium Today R25.2 - Cramp and spasm TDaP Immunization Today Z23 - Encounter for immunization Thyroid Stimulating Hormone Today E66.9 - Obesity, unspecified Medications: Refilled ibuprofen 600 mg PO TID PRN 90 tabs 0RF pain 30 days sennosides (senna) 8.6 mg PO DAILY PRN 30 caps 2RF constipation Patient Instructions: - Obtain tetanus vaccine today to stay up-to-date on immunizations - Continue to monitor mood and emotional well-being; consider follow-up if symptoms increase - Maintain a healthy lifestyle to mitigate familial cardiovascular risks - No current need for iron supplements; monitor fatigue and report significant changes - Scheduled blood tests to include thyroid and cholesterol checks - Regular follow-up appointments to review health status and update the care plan as needed
== END 2024-10-18 14:06 | disposition home or self-care (01) ==
LOC: HO.HMCH 13:03
PROVIDERS: PCP Internal Medicine; Visit Provider Internal Medicine
DX: Z00.00 Encounter for general adult medical examination without abnormal findings (principal); F32.0 Major depressive disorder, single episode, mild; R25.2 Cramp and spasm; H53.8 Other visual disturbances; Z23 Encounter for immunization

== ENCOUNTER → 2024-10-18 13:02 | Outpatient (BNVA) | payer OTHER, SELFPAY | PROVIDERS: PCP Internal Medicine; Visit Provider Internal Medicine | DX: Z00.01 Encounter for general adult medical examination with abnormal findings (principal); Z23 Encounter for immunization; F32.0 Major depressive disorder, single episode, mild; R25.2 Cramp and spasm; H53.8 Other visual disturbances | CPT/HCPCS: 90471; 90715; 96127; 99212; 99396 ==

== ENCOUNTER 2024-10-19 12:32 | Outpatient (AMB) | payer OTHER, SELFPAY ==
[2024-10-19 12:36] VITALS: BP 162/85; PULSE 70; BMI 34.4
--- NOTE | 2024-10-19 12:36 | A.OFFVIS_ITS ---
Vital Signs 3 10/19/24 12:36 Height 5 ft 3 in Weight 194 lb 0.108 oz BMI 34.4 BP 162/85 H Blood Pressure Location Lt brachial Position Sitting Pulse 70 Intake Visit Reasons: Colonoscopy screening/ was seeing Olvin Intake Note: Patient in office today for colonoscopy screening. CC: Patient reports constipation and states she takes senna for it and it helps. Denies other GI symptoms or concerns. Phd Internship Required: No Accompanied by: Self / Same As Patient Allergies oxycodone [From Percocet] Allergy (Intermediate, Verified 10/19/24 12:39) stomache citalopram Adverse Reaction (Intermediate, Verified 10/19/24 12:39) nausea HPI HPI Colonoscopy screening/ was seeing Olvin: Details: 43-year-old female seen in the past by Rupal Bah and treated for constipation and hemorrhoids here to discuss a screening colonoscopy. She is referred by Dianne Herrera. PMX Menometrorrhagia Iron-deficiency anemia History of H pylori infection Chronic constipation Ovarian cyst and fibroids Pelvic floor dysfunction Low back pain with sciatica Depression * SURGICAL HISTORY Hysteroscopy Hysterectomy * ALLERGIES OXYCODONE CITALOPRAM * Connectivity LABS: Laboratory Tests 10/11/24 14:40 WBC 5.6 Hgb 12.8 Hct 39.4 Plt Count 349 Estimated GFR > 60 Total Bilirubin 0.5 AST 24 ALT 20 Alkaline Phosphatase 57 TODAY'S VISIT This is her first colonoscopy. She struggles with CIC but this is controlled with senna and is partially r/t her fibroids, no upper GI problems. She denies any cardiac or respiratory problems. No prior anesthesia or sedation problems. No ID problems. There is no known FHX of crc or polyps. [facility] Medical History (Updated 10/19/24 @ 12:51 by BARBARA Pike) Iron deficiency anemia due to chronic blood loss Back pain Obese Migraine with aura Overweight Depression Surgical History (Updated 10/19/24 @ 13:03 by BARBARA Pike) History of hysterectomy History of hysteroscopy Family History Mother Diabetes HTN (hypertension) Mental health disorder Father High cholesterol HTN (hypertension) Sister Asthma Social History Household Members: Family Housing: Apartment Alcohol intake: never Patient Tobacco Use Status: Former Tobacco user Tobacco use type: Cigarette e-Cigarette/Vaping Use: Never Used Second Hand Smoke Exposure: No service: No Current occupational status: employed Current occupational exposures/hazards: No Sexual orientation: Straight/Heterosexual Gender identity: Female Cognitive needs: No Hearing needs: No Vision needs: No Female Reproductive History Menstrual Age of Menarche: 11 Review of Systems Const Denies fatigue, Denies fever(s), Denies night sweats, Denies poor appetite and Denies weight loss ENT Reports Normal hearing present, Denies dysphagia, Denies odynophagia, Denies throat swelling and Denies tongue swelling Card Reports no additional complaints Resp Reports no additional complaints GI Details: Denies abdominal pain, Denies melena, Denies bloating, Denies hematochezia, Reports constipation, Denies GI cramping, Denies dysphagia, Denies excessive flatus, Denies early satiety, Denies heartburn, Denies diarrhea, Denies nausea, Denies odynophagia, Denies vomiting and Denies hematemesis Skin/Breast Denies pruritus, Denies lesions, Denies rash and Denies jaundice Neuro Reports Normal hearing present and Denies Abnormal speech present Endo Denies fatigue Aller/Immun Denies throat swelling and Denies tongue swelling Physical Exam Vital Signs: Last Vital Signs Pulse 70 10/19/24 12:36 BP 162/85 H 10/19/24 12:36 BMI result Body Mass Index 34.4 Const General: cooperative, no acute distress, well developed and well groomed Nutritional Appearance: well nourished and obese Orientation/consciousness: oriented to person, oriented to place and oriented to time Limitations: No language barrier HEENT Head: Yes normocephalic and Yes atraumatic Eyes General: appearance normal, both eyes and all related structures Pupils: Equal, round and reactive pupils present Neck Neck: Yes normal visual inspection and Yes no lymphadenopathy Thyroid: Thyroid normal Resp Effort & Inspection: normal respiratory effort and able to speak in complete sentences Auscultation: clear to auscultation bilaterally Cardio Rate: regular rate Rhythm: regular rhythm Heart sounds: Normal, physiologic split S2 sound present Peripheral pulses: radial pulses present and posterior tibial pulses present GI Inspection: No distended, No Abdominal panniculus present, Yes obesity and Yes scar Palpation (GI): Soft to palpation, nontender, no guarding, not rigid and No hepatosplenomegaly present Percussion: Yes normal to percussion Auscultation: normal bowel sounds Rectal Exam - Female: deferred Abdomen image: 2 1. surgical scar Skin General skin exam: no rashes or lesions noted, turgor normal, skin not dry, no jaundice, No spider nevi and no striae Rashes: no rashes Nails: normal Neuro General: oriented to person, oriented to place and oriented to time Cranial nerves: Yes Equal, round and reactive pupils present and Yes Normal hearing present Speech: No Abnormal speech present Extrem General: Yes normal to inspection, No clubbing, No cyanosis and No edema Psych Appearance: grossly normal and well kempt Mental Status: mental status grossly normal Speech and movement: Normal speech and movement present Affect: normal affect Attitude: cooperative Thought process: Normal thought process present and not confabulating Thought content: Normal thought content present Insight: Good insight present (Psych) Judgement: Good judgement present (Psych) Assessment & Plan Assessment & Plan (1) Pre-op examination: Code(s): Z01.818 - Encounter for other preprocedural examination Category: Medical Plan This is her first colonoscopy. She struggles with CIC but this is controlled with senna and is partially r/t her fibroids, no upper GI problems. She denies any cardiac or respiratory problems. No prior anesthesia or sedation problems. No ID problems. There is no known FHX of crc or polyps. Orders: Orders 2 Colonoscopy - GI Use Only Today Z01.818 - Encounter for other preprocedural examination Medications: New 2 sodium,potassium,mag sulfates 17.5-3.13-1.6 gram (Suprep Bowel Prep Kit) 480 mL orally; FOR COLONOSCOPY PREP 354 mL 0RF Coding Level of Care Code Est Pt Level 4 (27861) Diagnoses Pre-op examination Z01.818 Time Spent (min) 38
--- OUTSIDE RECORDS SUMMARY | 2024-10-19 15:14 | XMS_ITS | Encounter Summary ---
Author Organization [facility] Address [address] [place] [address] Care Team Providers Care Eap Specialist Name Role Phone Aydee Bower SALIMA Primary Care Provider [phone] Encounter Details Date Type Department Care Team (Late st Contact Info) Description 11/14/2021 Dental Interim Note [facility] Main Dental [address] [place] [address] Miranda Sinha DMD [address], [place] [id number] Social History Tobacco Use Types Packs/Day Years [...] on filedocumented in this encounter Care Teams Eap Specialist Relationship Specialty Start Date End Date Aydee Bower DMD [address] [place] [address] PCP - General Dental Director Of Institutional Sales 04/24/20 documented as of this encounter
--- OUTSIDE RECORDS SUMMARY | 2024-10-19 15:14 | XMS_ITS | Encounter Summary ---
Author Organization [facility] Address [address] [place] [address] Care Team Providers Care Electrical Installation Supervisor Name Role Phone Aydee Bower DMD Primary Care Provider [phone] Encounter Details Date Type Department Care Team (Late st Contact Info) Description 12/14/2021 [facility] Inter[facility] [address] [facility] [address] [place] [address] Miranda Sinha DMD [address], [place] [phone] Social History Tobacco Use Types Packs/Day Years [...] on filedocumented in this encounter Care Teams Electrical Installation Supervisor Relationship Specialty Start Date End Date Aydee Bower DMD [address] [place] [address] PCP - General Dental Wind Turbine Controls Engineer 04/24/20 documented as of this encounter
--- OUTSIDE RECORDS SUMMARY | 2024-10-19 15:14 | XMS_ITS | Encounter Summary ---
Author Organization [facility] Address [address] [place] [address] Care Team Providers Care Sliver Lap Tender Name Role Phone Aydee Bower DMD Primary Care Provider [phone] Encounter Details Date Type Department Care Team (Late st Contact Info) Description 11/21/2021 [facility] Interim Note [facility] [address] [facility] [address] [place] [address] Miranda Sinha DMD [address] [place], [place] [phone] Social History Tobacco Use Types Packs/Day Years [...] on filedocumented in this encounter Care Teams Sliver Lap Tender Relationship Specialty Start Date End Date Aydee Bower DMD [address] [place] [address] PCP - General Dental Display Carver 04/24/20 documented as of this encounter
--- OUTSIDE RECORDS SUMMARY | 2024-10-19 15:14 | XMS_ITS | Clinical Summary ---
Author Organization [facility] Address [address] [place] [address] Care Team Providers Care Tube Knitter Name Role Phone Aydee Bower DMD Primary Care Provider [phone] Source Comments PLEASE NOTE, if this patient [...] Smear 11/15/2000 Breast Cancer Screening (Mammogram) 2019 [id number] (2023- season) 2024 Imm-Influenza (#1) 2024 Alcohol and Drug Screen 07/28/2024 Depression Annual Screen 07/28/2024 Cervical Ablation/Cold-Knife Conization Discontinued Cervical Cryotherapy Discontinued Colposcopy Discontinued Endometrial Biopsy Discontinued Excision/Leep Discontinued HPV Genotyping Discontinued Vaginal Pap Discontinued Vulvoscopy Discontinued Insurance [place] MEDICAID DENTAL Care Teams Tube Knitter Relationship Specialty Start Date End Date Aydee Bower DMD [address] [place] [address] PCP - General Dental Automobile Sales Representative 04/24/20
--- OUTSIDE RECORDS SUMMARY | 2024-10-19 15:14 | XMS_ITS ---
Author Organization [facility] Address [address] [place] [address] Care Team Providers Care Medical Registrar Name Role Phone Dianne Herrera Primary Care Provider Unavailab Tim Hagen [phone] REASON FOR VISIT anemia Encounters Encounter Location Date Provider Diagnosis [facility] [address] [place] [address] 05/30/2023 Tim Byrd Plan Of Treatment No Information Progress Notes * EMI CLINEDOB:[birth year] (43 yo F)Acc No.[id number]:05/30/2023 Progress Notes Patient:?EMI CLINE Provider:?Tim Byrd MD :1980???Age:42 Y???Sex:Female D ate:05/30/2023 Address:[address] [place] [address], [facility] Pcp:Dianne Florence Subjective: * Chief Complaints: * ???1. Anemia. * Medical History:? Objective: * Vitals:? Assessment: Plan: * Treatment: * * The named appointment provid er may or may not be the originator of this progress note, and it is not deemed complete until electronically signed by the appointment provider. Sign off status: Pending * Provider:?Tim Byrd MD Date:? 023 Generated for Ward whitman/Adilson/eTglorysmitting on:?10/19/2024 03:14 PM EDT
--- OUTSIDE RECORDS SUMMARY | 2024-10-19 15:14 | XMS_ITS | Encounter Summary ---
Author Organization [facility] Address [address] [place] [address] Care Team Providers Care Sales Mgr Name Role Phone Aydee Bower SALIMA Primary Care Provider [phone] Encounter Details Date Type Department Care Team (Late st Contact Info) Description 11/15/2021 Dental Interim Note [facility] Main Dental [address] [place] [address] Miranda Sinha DMD [address] [place], [place] [phone] Social History Tobacco Use Types Packs/Day Years [...] on filedocumented in this encounter Care Teams Sales Mgr Relationship Specialty Start Date End Date Aydee Bower DMD [address] [place] [address] PCP - General Dental Gaming Department Head 04/24/20 documented as of this encounter
--- OUTSIDE RECORDS SUMMARY | 2024-10-19 15:14 | XMS_ITS | Encounter Summary ---
Author Organization [facility] Address [address] [place] [address] Care Team Providers Care Drilling Contractor Name Role Phone Aydee Bower DMD Primary Care Provider [phone] Encounter Details Date Type Department Care Team (Late st Contact Info) Description 01/17/2022 Dental Interim Note [facility] Dental [address] [place] [address] Miranda Sinha DMD [address] [place], [place] [phone] Social History Tobacco Use Types Packs/Day Years [...] on filedocumented in this encounter Care Teams Drilling Contractor Relationship Specialty Start Date End Date Aydee Bower DMD [address] [place] [address] PCP - General Dental Nibbler Operator 9/28/20 documented as of this encounter
--- OUTSIDE RECORDS SUMMARY | 2024-10-19 15:15 | XMS_ITS | Patient Health Record ---
Author Organization [facility] Address [address] [place] [address] Care Team Providers Care Merchandise For Resale Purchasing Agent Name Role Phone Dianne Herrera Primary Care Provider Tim Espinosa Unavailable [phone] Reason For Referral No Information Plan Of Treatment No Information Insurance Providers Payer Name Payer Address Payer Phone Subscriber Number Group Number Insured Name Patient Relationship to Insured Coverage Start Date Coverage End Date [facility] [address] [address] [place], [place] [id number] EMI CLINE Self - patient is the insured
--- OUTSIDE RECORDS SUMMARY | 2024-10-19 15:15 | XMS_ITS ---
Author Organization [facility] Address [address] [place] [address] Care Team Providers Care Custom Feed Mill Operator Helper Name Role Phone Dianne Herrera Primary Care Provider UnavailTim Alvarado [phone] REASON FOR VISIT didn't know anything about appt Encounters Encounter Location Date Provider Diagnosis [facility] [address] [place] [address] 05/30/2023 Tim Byrd Plan Of Treatment No Information Progress Notes * EMI CLINEDOB:[birth year] (42 yo F)Acc No.[id number]:05/30/2023 Patient:?EMI CLINE :1980???Age:42 Y???Sex:Female Address:[address] [place] [address], [place], [address] * true * Date:? Generated for Ward whitman/Adilson/eTransmitting on:?10/19/2024 03:15 PM EDT
== END 2024-10-19 13:11 | disposition home or self-care (01) ==
LOC: HO.HGI 12:33
PROVIDERS: PCP Internal Medicine; Visit Provider Nurse Practitioner
DX: Z01.818 Encounter for other preprocedural examination (principal); Z12.11 Encounter for screening for malignant neoplasm of colon
CPT/HCPCS: 99212

== ENCOUNTER → 2024-10-19 12:32 | Outpatient (BNVA) | payer OTHER, SELFPAY | PROVIDERS: PCP Internal Medicine; Visit Provider Nurse Practitioner | DX: Z01.818 Encounter for other preprocedural examination (principal) | CPT/HCPCS: 99212 ==

== ENCOUNTER 2024-12-27 13:42 | Outpatient (REF) | payer OTHER, SELFPAY ==
--- NOTE | ~2024-12-27 | XR_ITS ---
CLINICAL HISTORY: M54.50 - Low back pain, unspecified Three views of the lumbar spine. COMPARISON: None FINDINGS: Five fuo-edv-czkfcyj lumbar type vertebral bodies. Normal vertebral body alignment. Vertebral body heights are maintained. No evidence of acute vertebral body injury. Vertebral disc space heights are maintained. Tiny marginal osteophytes along the lower lumbar spine. No significant degenerative changes. Visualized portions of the bones of the pelvis appear intact. IMPRESSION: 1. No radiographic evidence of acute injury to the lumbar spine. No significant degenerative changes. This document has been electronically signed by: Narendra Dumont MD on 12/28/2024 15:39:10
--- NOTE | ~2024-12-27 | XR_ITS ---
CLINICAL HISTORY: M25.551 - Pain in right hip Two views of left and right hip. COMPARISON: None FINDINGS: Visualized portions of the pelvis appear intact. Pelvic phleboliths present. Right hip: Visualized portions of the proximal right femur appears intact. Right femoral head is appropriately seated in the acetabulum. No significant degenerative changes. Left hip: Visualized portions of the proximal left femur appears intact. Left femoral head is appropriately seated in the acetabulum. No significant degenerative changes. IMPRESSION: 1. No radiographic evidence of acute injury to the bilateral hips. This document has been electronically signed by: Narendra Dumont MD on 12/28/2024 15:46:07
[2024-12-27 14:32] LABS: Cholesterol 207 mg/dL (<200); HDL Cholesterol 48 mg/dL (>40); LDL Cholesterol Calculated 146 mg/dL (<100); Triglycerides 69 mg/dL (<150)
[2024-12-27 14:47] LABS: Vitamin D 25-OH Total 33.2 ng/mL (>30)
--- OUTSIDE RECORDS SUMMARY | 2024-12-27 14:55 | XMS_ITS | Clinical Summary ---
Author Organization [facility] Address [address] [place] [address] Care Team Providers Care Syrup Machine Laborer Name Role Phone Aydee Bower DMD Primary Care Provider [phone] Source Comments PLEASE NOTE, if this patient [...] Health Maintenance Due Date Last Done Comments Anxiety Screening 1980 Diabetes Screening 1980 HPV Screening 1980 Hepatitis C Screening 1980 Lipid Screening 1980 Pap + HPV 1980 Tobacco Screening 1980 HIV Screening 11/15/1994 Relationship Safety Screening/Counseling 11/15/1994 Hypertension Screening (#1) 11/15/1997 Imm-DTaP/Tdap/Td (1 - Tdap) 11/15/1998 Imm-Hepatitis B (1 of 3 - 19+ 3-dose series) 9 Cervical Cancer Screening 11/15/2000 Pap Smear 11/15/2000 Breast Cancer Screening (Mammogram) 2019 [id number] ( season) 2024 Imm-Influenza (#1) 2024 Alcohol and Drug Screen 07/28/2024 Depression Annual Screen 07/28/2024 CT Colonography 11/15/2024 Colonoscopy 11/15/2024 Colorectal Cancer Screening 11/15/2024 FIT/gFOBT 11/15/2024 Fecal DNA 11/15/2024 Flexible Sigmoidoscopy 11/15/2024 Cervical Ablation/Cold-Knife Conization Discontinued Cervical Cryotherapy Discontinued Colposcopy Discontinued Endometrial Biopsy Discontinued Excision/Leep Discontinued HPV Genotyping Discontinued Vaginal Pap Discontinued Vulvoscopy Discontinued Insurance [place] MEDICAID DENTAL Care Teams Syrup Machine Laborer Relationship Specialty Start Date End Date Aydee Bower DMD [address] [place] [address] PCP - General Dental Leather Carver 04/24/20
== END 2024-12-27 13:43 | disposition home or self-care (01) ==
LOC: HO.LAB 13:42
PROVIDERS: PCP Internal Medicine; Visit Provider Internal Medicine
DX: Z00.00 Encounter for general adult medical examination without abnormal findings (principal); E78.5 Hyperlipidemia, unspecified; E66.9 Obesity, unspecified; E55.9 Vitamin D deficiency, unspecified; R25.2 Cramp and spasm; M54.50 Low back pain, unspecified; M25.551 Pain in right hip; M25.552 Pain in left hip
CPT/HCPCS: 36415; 72100; 73522; 80061; 82306; 83735; 84443

== ENCOUNTER → 2024-12-27 13:59 | Outpatient (BNV) | payer OTHER, SELFPAY | PROVIDERS: PCP Internal Medicine; Visit Provider Radiology Diagnostic Radiology | DX: M25.551 Pain in right hip (principal); M54.50 Low back pain, unspecified | CPT/HCPCS: 72100; 73522 ==

== ENCOUNTER 2025-04-12 16:26 | Emergency (ER) | payer OTHER, SELFPAY ==
--- NOTE | ~2025-04-12 | CT_ITS ---
CLINICAL HISTORY: headache CT head without contrast Comparison: None provided Findings: No intra-axial mass, midline shift, hydrocephalus, or acute hemorrhage. No significant atrophy-like change or white matter disease. The visualized paranasal sinuses and mastoid air cells are normal. The orbits are within normal limits. No skull fracture. IMPRESSION: 1. No acute intracranial findings. This document has been electronically signed by: Darlyn Reid MD on 04/12/2025 18:54:51
--- NOTE | 2025-04-12 16:51 | ED.GENADULT ---
HPI - General Adult General Chief complaint: Headache Stated complaint: High blood pressure/Headache sent from Time Seen by Provider: 04/12/25 20:46 Source: patient, RN notes reviewed and old records reviewed Mode of arrival: ambulatory Limitations: no limitations History of Present Illness ED Provider: Faith MARQUES narrative: 44-year-old female presents for evaluation of a headache over the last 3 days. She has a history of migraines pain She has mild light sensitivity and dizziness, no nausea or vomiting. Her headache is mostly left-sided. She would not fall, there was no injury to the head or neck. She has had an elevated blood pressure and urgent care when she went to be evaluated for headache and was referred to the ED. She is not take medication for high blood pressure She is not anticoagulated Denies any weakness, difficulty speaking Related Data Previous Rx's ?Medication ?Instructions ?Recorded sodium,potassium,mag sulfates 17.5 480 ml PO .COMPLEX #354 mL 10/19/24 gram-3.13 gram-1.6 gram oral soln (Suprep Bowel Prep Kit) sennosides 8.6 mg tablet (senna) 8.6 mg PO DAILY PRN for 02/07/25 constipation #90 tabs ibuprofen 600 mg tablet 600 mg PO TID PRN pain 30 days #90 03/28/25 tabs unrfsteefs-qpqjtyubztwpk-gagbajoa 1 cap PO Q8H PRN headache #12 caps 04/12/25 50 mg-300 mg-40 mg capsule (Fioricet) sumatriptan succinate 25 mg tablet 25 mg PO Q2-4H PRN migraine 04/12/25 headache 30 days #9 tabs Allergies Allergy/AdvReac Type Severity Reaction Status Date / Time oxycodone (From Percocet) Allergy Intermediate stomache Verified 04/12/25 17:19 citalopram AdvReac Intermediate nausea Verified 04/12/25 17:19 Review of Systems Constitutional: Constitutional: Denies body ache(s), Denies chills, Denies fever(s) and Reports headache(s) Eyes: Eyes: Denies blurry vision, Denies exophthalmos, Denies floaters, Denies itchy eyes and Reports photophobia ENT: Denies vertigo, Reports dizziness and Reports headache(s) Cardiovascular: Cardiovascular: Denies chest pain and Denies dyspnea on exertion Respiratory: Respiratory: Denies cough and Denies dyspnea on exertion Gastrointestinal: Gastrointestinal: Denies abdominal pain, Denies nausea and Denies vomiting Musculoskeletal: Musculoskeletal: Denies back pain Neurologic: Denies vertigo, Reports dizziness and Reports headache(s) Allergic/Immunologic: Allergic/Immunologic: Denies itchy eyes PMFSH Past Medical History Medical History (Updated 04/12/25 @ 21:46 by Josué Cuevas) Iron deficiency anemia due to chronic blood loss Back pain Obese Migraine with aura Overweight Depression Surgical History (Updated 10/19/24 @ 13:03 by BARBARA Pike) History of hysterectomy History of hysteroscopy Family History Family History Mother Diabetes HTN (hypertension) Mental health disorder Father High cholesterol HTN (hypertension) Sister Asthma Social History Social History Household Members: Family Housing: Apartment Alcohol intake: never Patient Tobacco Use Status: Former Tobacco user Tobacco use type: Cigarette Smoked in Last 30 Days: No e-Cigarette/Vaping Use: Never Used Second Hand Smoke Exposure: No Substance Use Type: Marijuana Advance Directives: No Advance Directives Information Provided: No service: No Current occupational status: employed Current occupational exposures/hazards: No Sexual orientation: Straight/Heterosexual Gender identity: Female Cognitive needs: No Hearing needs: No Vision needs: No Physical Exam ED Vital Signs: Vital Signs - 24 hr 04/12/25 17:18 04/12/25 20:21 Temperature 97.3 F 97.8 F Pulse Rate 72 73 Respiratory Rate 16 16 Blood Pressure 187/87 H 194/92 H Pulse Oximetry 98 100 Oxygen Delivery Method Room Air Room Air BMI result Body Mass Index 34.1 Const General: healthy appearing, comfortable, no acute distress, alert and awake Nutritional Appearance: well nourished Orientation/consciousness: patient oriented x3 HENMT Head: Yes normocephalic and Yes atraumatic Eyes Eyelids: Yes eyelids normal Conjunctivae: conjunctivae normal Sclerae: sclerae normal Corneas: corneas normal Pupils: Equal, round and reactive pupils present EOM: EOMs intact bilaterally Direct Ophthalmoscopy: photophobia Neck Neck: Yes full ROM Resp Effort & Inspection: normal respiratory effort, able to speak in complete sentences and not labored Skin General skin exam: elasticity normal Neuro General: patient oriented x3 Cranial nerves: Yes CN's II-XII intact bilaterally, Yes Equal, round and reactive pupils present and Yes Bilaterally intact EOM present Cognition (Neuro): normal cognition Extrem Other: Moving all extremities well without any obvious deformities Course Course Course Narrative: This is an RME: Additional HPI, ROS, PE not included below will be deferred to primary provider. RME assessment and note performed by: Ally Carmichael PA-C This is a 10-azal[age]q-female who presents to the ER with complaints of headache and dizziness for several days. Urgent care sent pt in here. Took sumatriptan (new med for her) this am without relief. No fevers, chills, CP, or SOB. Plan: Labs, EKG, CT head Medical Decision Making Medical Decision Making [facility] Narrative: 44-year-old female with a past medical history significant for migraine headaches his symptoms returned menstrual cycle presents for evaluation of a headache. Her symptoms have been present for 3 days. She has some light sensitivity. There was no trauma to the head or neck. Neurologic exam is benign, she has no deficits. She reports that her headache has improved with an ice pack prior to my evaluation. She had a CT scan ordered that did not show any acute findings. The patient was hypertensive on arrival which improved without any intervention. I have a low suspicion for CVA. Her history exam is most consistent with a migraine headache that she has had in the past. We will treat her pain with Toradol and Fioricet. She will follow up with your PCP regarding her elevated blood pressure Differential Diagnosis Differential Diagnoses: The differential diagnosis associated with the presentation includes Acute headache Hypertension Migraine headache Cluster headache Tension headache Lab Data [facility] Lab Attestation statement: I reviewed the patient's lab results. No leukocytosis or anemia. Normal platelet count. No significant electrolyte abnormalities warranting intervention 04/12/25 18:13 04/12/25 18:13 Labs: Lab Results 04/12/25 Range/Units 18:13 WBC 7.7 (4.8-10.8) X10*3/uL RBC 4.37 (4.20-5.50) X10*6/uL Hgb 12.7 (12.0-16.0) g/dl Hct 37.6 (37.0-47.0) % MCV 86.0 (80.0-98.0) fL MCH 29.1 (27.0-33.0) pg MCHC 33.8 (31.0-35.0) g/dl RDW 16.0 (11.0-16.0) % Plt Count 359 (160-400) X10*3/uL MPV 10.8 (9.4-12.3) fL Immature Gran % (Auto) 0.3 (0.0-0.4) % Neut % (Auto) 56.9 (45-73) % Lymph % (Auto) 32.3 (20-40) % [place] % (Auto) 8.8 (2-11) % Eos % (Auto) 1.3 (0-4) % Baso % (Auto) 0.4 (0-2) % Lymph # (Auto) 2.5 (1.2-4.9) X10*3/uL [place] # (Auto) 0.7 (0.1-1.2) X10*3/uL Eos # (Auto) 0.1 (0.0-0.4) X10*3/uL Baso # (Auto) 0.0 (0.0-0.2) X10*3/uL Abs Immat Gran (auto) 0.02 (0.00-0.03) X10*3/uL Absolute Neuts (auto) 4.4 (2.0-8.3) x10*3/uL Absolute Nucleated RBC 0.000 (0.0-0.012) X10*3/uL Nucleated RBC % (auto) 0.0 (0.0-0.2) /100WBC Sodium 142 (135-145) mmol/L Potassium 4.1 (3.3-5.1) mmol/L Chloride 109 H (96-108) mmol/L Carbon Dioxide 26 (22-29) mmol/L Anion Gap 11 L (12-20) BUN 16 (9-16) mg/dL Creatinine 0.74 (0.5-1.4) mg/dL Estim Creat Clear Calc 100.6 Estimated GFR > 60 Random Glucose 92 (60-115) mg/dL Calcium 8.9 (8.4-10.2) mg/dL Magnesium 2.4 (1.6-2.6) mg/dL Total Bilirubin 0.3 (0.0-1.0) mg/dL Direct Bilirubin 0.1 (0.0-0.5) mg/dL AST 21 (5-31) U/L ALT 18 (0-31) U/L Alkaline Phosphatase 59 (39-117) U/L Troponin I High Sens < 2.7 (<3.5-17.0) ng/L Total Protein 7.2 (6.5-8.0) g/dL Albumin 4.4 (3.5-5.0) g/dL Beta HCG, Quant < 2 mIU/mL Radiology Impression Discussion of test interpretation with radiology: I have reviewed the radiologist's reading. Radiologist Impression: Findings: No intra-axial mass, midline shift, hydrocephalus, or acute hemorrhage. No significant atrophy-like change or white matter disease. The visualized paranasal sinuses and mastoid air cells are normal. The orbits are within normal limits. No skull fracture. IMPRESSION: 1. No acute intracranial findings. This document has been electronically signed by: Darlyn Reid MD on 04/12/2025 18:54:51 Discharge Plan Discharge Clinical Impression: Acute headache Patient Disposition: Home, Self-Care Instructions: Acute Headache (ED) Additional Instructions: Your workup in the ER today was reassuring. This includes your blood work as well as your CT scan. Your blood pressure was quite elevated. This may have been due to your discomfort but I recommend that you follow up with your primary doctor. You may use ibuprofen as needed for pain. Take Fioricet as needed for further headaches Prescriptions: New fajlgvbefw-dovxetrlyczel-sjfx [Fioricet] 50-300-40 mg capsule 1 cap PO Q8H PRN (Reason: headache) Qty: 12 0RF No Action sennosides [senna] 8.6 mg tablet 8.6 mg PO DAILY PRN (Reason: for constipation) Qty: 90 0RF ibuprofen 600 mg tablet 600 mg PO TID PRN (Reason: pain) 30 Days Qty: 90 0RF sumatriptan succinate 25 mg tablet 25 mg PO Q2-4H PRN (Reason: migraine headache) 30 Days Qty: 9 1RF Rx Instructions: do not exceed 8 doses per 24 hrs sodium,potassium,mag sulfates [Suprep Bowel Prep Kit] 17.5-3.13-1.6 gram recon soln 480 ml PO .COMPLEX Qty: 354 0RF Rx Instructions: 480 mL orally; FOR COLONOSCOPY PREP Print Language: [place]
[2025-04-12 17:18] VITALS: BP 187/87; PULSE 72; RESP 16; TEMP 36.3; O2SAT 98; BMI 34.1
--- NOTE | 2025-04-12 17:22 | ECG_ITS ---
Test Reason : headache Blood Pressure : */* mmHG Vent. Rate : 71 BPM Atrial Rate : 71 BPM P-R Int : 174 ms QRS Dur : 70 ms QT Int : 380 ms P-R-T Axes : 37 27 18 degrees QTcB Int : 412 ms Normal sinus rhythm Normal ECG When compared with ECG of 17-Oct-2009 03:49, Vent. rate has increased by 23 bpm Referred By: Ally Carmichael Electronically Signed By: MERRY MINAYA
[2025-04-12 18:17] LABS: MANUAL DIFF FLAG NO
[2025-04-12 18:18] LABS: Hematocrit 37.6 % (37.0-47.0); Hemoglobin 12.7 g/dl (12.0-16.0); Mean Corpuscular HGB Conc 33.8 g/dl (31.0-35.0); Mean Corpuscular Hemoglobin 29.1 pg (27.0-33.0); Mean Corpuscular Volume 86.0 fL (80.0-98.0); Platelet Count 359 X10*3/uL (160-400); Red Blood Count 4.37 X10*6/uL (4.20-5.50); White Blood Count 7.7 X10*3/uL (4.8-10.8)
[2025-04-12 18:19] LABS: Imm Gran Abs Auto 0.02 X10*3/uL (0.00-0.03); Imm Gran Pct Auto 0.3 % (0.0-0.4); Lymphocytes Absolute Auto 2.5 X10*3/uL (1.2-4.9); NRBC Abs Auto 0.000 X10*3/uL (0.0-0.012); NRBC Pct Auto 0.0 /100WBC (0.0-0.2)
[2025-04-12 18:39] LABS: Alanine Aminotransferase 18 U/L (0-31); Albumin Level 4.4 g/dL (3.5-5.0); Alkaline Phosphatase 59 U/L (39-117); Anion Gap 11 (12-20); Aspartate Amino Transferase 21 U/L (5-31); Blood Urea Nitrogen 16 mg/dL (9-16); Calcium 8.9 mg/dL (8.4-10.2); Carbon Dioxide 26 mmol/L (22-29); Chloride 109 mmol/L (96-108); Creatinine Clr Calc Pharmacy 100.6; Estimated Glomerular Filt Rate > 60; Magnesium 2.4 mg/dL (1.6-2.6); Potassium 4.1 mmol/L (3.3-5.1); Sodium 142 mmol/L (135-145); Total Protein 7.2 g/dL (6.5-8.0); Troponin-I High Sensitivity < 2.7 ng/L (<3.5-17.0)
--- OUTSIDE RECORDS SUMMARY | 2025-04-12 20:11 | XMS_ITS | Encounter Summary ---
Author Organization [facility] Address [address] [place] [address] Care Team Providers Care Window Framer Name Role Phone Aydee Bower DMD Primary Care Provider [phone] Encounter Details Date Type Department Care Team (Late st Contact Info) Description 12/14/2021 Dental Interim Note [facility] [address] [place] [address] Miranda Sinha DMD [address] [place], [place] [phone] Social History Tobacco Use Types Packs/Day Years [...] on filedocumented in this encounter Care Teams Window Framer Relationship Specialty Start Date End Date Aydee Bower DMD [address] [place] [address] PCP - General Dental Wire Weaver Cloth 04/24/20 documented as of this encounter
--- OUTSIDE RECORDS SUMMARY | 2025-04-12 20:11 | XMS_ITS | Encounter Summary ---
Author Organization [facility] Address [address] [place] [address] Care Team Providers Care Hide Salter Name Role Phone Aydee Bower SALIMA Primary Care Provider [phone] Encounter Details Date Type Department Care Team (Late st Contact Info) Description 11/15/2021 Dental Interim Note [facility] Main Dental [address] [place] [address] Miranda Sinha DMD [address] [place], [place] [phone] Social History Tobacco Use Types Packs/Day Years [...] on filedocumented in this encounter Care Teams Hide Salter Relationship Specialty Start Date End Date Aydee Bower DMD [address] [place] [address] PCP - General Dental Department [employer] 04/24/20 documented as of this encounter
--- OUTSIDE RECORDS SUMMARY | 2025-04-12 20:11 | XMS_ITS | Encounter Summary ---
Author Organization [facility] Address [address] [place] [address] Care Team Providers Care Controlled Atmospheric Furnace Brazer Name Role Phone Aydee Bower DMD Primary Care Provider [phone] Encounter Details Date Type Department Care Team (Late st Contact Info) Description 11/21/2021 Dental Interim Note [facility] Dental [address] [place] [address] Miranda Sinha DMD [address] [place], [place] [phone] Social History Tobacco Use Types Packs/Day Years [...] on filedocumented in this encounter Care Teams Controlled Atmospheric Furnace Brazer Relationship Specialty Start Date End Date Aydee Bower DMD [address] [place] [address] PCP - General Dental Glass Technologist 04/24/20 documented as of this encounter
--- OUTSIDE RECORDS SUMMARY | 2025-04-12 20:11 | XMS_ITS | Encounter Summary ---
Author Organization [facility] Address [address] [place] [address] Care Team Providers Care Drill Press Set Up Operator Name Role Phone Aydee Bower DMD Primary Care Provider [phone] Encounter Details Date Type Department Care Team (Late st Contact Info) Description 01/17/2022 Dental Interim Note [facility] Dental [address] [place] [address] Miranda Sinha DMD [address] [place], [place] [phone] Social History Tobacco Use Types Packs/Day Years [...] on filedocumented in this encounter Care Teams Drill Press Set Up Operator Relationship Specialty Start Date End Date Aydee Bower DMD [address] [place] [address] PCP - General Dental Nuclear Monitoring Technician 9/28/20 documented as of this encounter
--- OUTSIDE RECORDS SUMMARY | 2025-04-12 20:11 | XMS_ITS | Encounter Summary ---
Author Organization [facility] Address [address] [place] [address] Care Team Providers Care Service Agent Name Role Phone Aydee Bower SALIMA Primary Care Provider [phone] Encounter Details Date Type Department Care Team (Late st Contact Info) Description 11/14/2021 Dental Interim Note [facility] Main Dental [address] [place] [address] Miranda Sinha DMD [address] [place], [place] [phone] Social History Tobacco Use Types Packs/Day Years [...] on filedocumented in this encounter Care Teams Service Agent Relationship Specialty Start Date End Date Aydee Bower DMD [address] [place] [address] PCP - General Dental Seasoning Sprayer 04/24/20 documented as of this encounter
--- OUTSIDE RECORDS SUMMARY | 2025-04-12 20:11 | XMS_ITS | Clinical Summary ---
Author Organization [facility] Address [address] [place] [address] Care Team Providers Care Chief Media Officer Name Role Phone Aydee Bower DMD Primary Care Provider [phone] Source Comments PLEASE NOTE, if this patient [...] Orientation Not on file Plan of Treatment Not on file Insurance [place] Care Teams Chief Media Officer Relationship Specialty Start Date End Date Aydee Bower DMD [address] [place] [address] PCP - General Dental Repairer And Checker 04/24/20
[2025-04-12 20:21] VITALS: BP 194/92; PULSE 73; RESP 16; TEMP 36.6; O2SAT 100
[2025-04-12 21:51] VITALS: BP 193/80; PULSE 65; RESP 18; TEMP 36.5; O2SAT 98
[2025-04-12] MEDS: Butalb/Acetamin/Caff 50/325/40 TABLET 1 TAB PO (21:55)
--- NOTE | 2025-04-12 22:03 | PC.NURSE ---
aware of pts 193/80 BP reading; OK with D/C.
[2025-04-12 22:23] VITALS: BP 193/80; PULSE 65; RESP 18; TEMP 36.5; O2SAT 98
== END 2025-04-12 22:23 | disposition home or self-care (01) ==
PROVIDERS: Physician Assistant Medical; Emergency Provider Student in an Organized Health Care Education/Training Program; PCP Internal Medicine
DX: R51.9 Headache, unspecified (principal); R42 Dizziness and giddiness; R03.0 Elevated blood-pressure reading, without diagnosis of hypertension
CPT/HCPCS: 36415; 70450; 80048; 80076; 83735; 84484; 84702; 85025; 93005; 96372; 99284; 99285; J1885

== ENCOUNTER → 2025-04-12 17:22 | Outpatient (BNV) | payer OTHER, SELFPAY | PROVIDERS: PCP Internal Medicine; Visit Provider Radiology Diagnostic Radiology | DX: R51.9 Headache, unspecified (principal) | CPT/HCPCS: 70450 ==

== ENCOUNTER → 2025-04-12 17:22 | Outpatient (BNV) | payer OTHER, SELFPAY | PROVIDERS: Emergency Provider Student in an Organized Health Care Education/Training Program; PCP Internal Medicine; Visit Provider Internal Medicine | DX: R51.9 Headache, unspecified (principal) | CPT/HCPCS: 93010 ==

== ENCOUNTER 2025-04-15 15:51 | Outpatient (AMB) | payer OTHER, SELFPAY ==
--- NOTE | 2025-04-15 15:55 | A.OFFPC_ITS ---
Vital Signs 04/15/25 15:56 Height 5 ft 3 in Weight 190 lb 2 oz BMI 33.7 BP 152/80 H Blood Pressure Location Lt brachial Position Sitting Pulse 66 Pulse Source Pulse Oximeter Temp 97.3 F Temp Source Temporal Artery Scan Pulse Oximetry (%) 98 Oxygen Delivery Method Room Air Intake Visit Reasons: Acute headache/High BP Intake Note: Patient is here to follow up on Acute headache and high BP. Windshield Technician Required: No Soap Chipper: Not Required per policy Accompanied by: Self / Same As Patient Allergies oxycodone (From Percocet) Allergy (Intermediate, Verified 04/15/25 15:59) stomache citalopram Adverse Reaction (Intermediate, Verified 04/15/25 15:59) nausea sumatriptan Adverse Reaction (Mild, Verified 04/15/25 15:59) not effective Tobacco use date assessed: 04/15/25 Dental Screening Dental Screen Date: 10/18/24 HPI HPI Comments History of Present Illness Details 44 y/o Female patient who presents [facility] today for EDF. She was admitted at [facility] on 04/12 for an evaluation and treatment of Severe Headaches associated with Elevated Blood Pressure. She had a CT Scan Head that was unremarkable. She was treated with Toradol and Fioricet in the ED and discharged home with Rx for Fioricet. Today Pt reports that Fioricet did not help with headaches. She was also prescribe Sumatriptan 25 mg - According to Patient Pharmacy did not receive the Script. Pt does have H/o Migraine headaches with Aura. Her BP during the visit 152/80 and continues to have Headaches. [facility] Medical History (Updated 04/15/25 @ 17:08 by Valarie Hamilton NP) Essential hypertension Generalized headaches Iron deficiency anemia due to chronic blood loss Back pain Obese Migraine with aura Overweight Depression Surgical History History of hysterectomy History of hysteroscopy Family History Mother Diabetes HTN (hypertension) Mental health disorder Father High cholesterol HTN (hypertension) Sister Asthma Social History Household Members: Family Housing: Apartment Alcohol intake: never Patient Tobacco Use Status: Former Tobacco user Tobacco use type: Cigarette e-Cigarette/Vaping Use: Never Used Second Hand Smoke Exposure: Yes Substance Use Type: Marijuana service: No Current occupational status: employed Current occupational exposures/hazards: No Sexual orientation: Straight/Heterosexual Gender identity: Female Cognitive needs: No Hearing needs: No Vision needs: No Female Reproductive History Menstrual Age of Menarche: 11 Questionnaire PHQ-9 Over the last 2 weeks, how often have you been bothered by any of the following problems? 6. Feeling bad about yourself - or that you are a failure or have let yourself or your family down: several days 7. Trouble concentrating on things, such as reading the newspaper or watching television: several days 8. Moving or speaking so slowly that other people could have noticed. Or the opposite - being so fidgety or restless that you have been moving around a lot more than usual: not at all 9. Thoughts that you would be better off or of hurting yourself in some way: not at all Source: Developed by Drs. Tim Crabtree, Alia Keane, Prashanth Sanchez and colleagues, with an educational dayana from [employer]. Thrive Questionnaire Date Thrive assessed: 10/11/24 I am a: Patient What is your living situation today?: I have a steady place to live Within the past 12 months, did the food you bought not last and you didn't have the money to get more?: Never true Within the past 12 months, did you worry whether your food would run out before you got money to buy more?: Never true Do you have trouble paying for medicines?: No Do you have trouble getting transportation to medical appointments?: No Do you have trouble paying your heating and electricity bill?: No Do you have trouble taking care of your child, family member or friend?: No Do you have trouble with day-to-day activities such as bathing, preparing meals, shopping, managing finances, etc.?: No Are you currently unemployed and looking for a job?: No Are you interested in more education?: Yes Please select the resources that you would like help with: Education Currently or been in a relationship where the following occur: No concerns reported THRIVE Score: 0 DEXTER-7 AMB Questionnaire DEXTER-7 Date DEXTER - 7 assessed: 10/18/24 Source: Developed by Drs. Tim Crabtree, Alia Keane, Prashanth Sanchez and colleagues, with an educational dayana from [employer]. Review of Systems Const All systems reviewed & are unremarkable except as noted in HPI and below Physical exam (Primary Care) Vital Signs: Last Vital Signs Temp 97.3 F 04/15/25 15:56 Pulse 66 04/15/25 15:56 BP 152/80 H 04/15/25 15:56 Pulse Ox 98 04/15/25 15:56 Oxygen Delivery Method Room Air 04/15/25 15:56 BMI result Body Mass Index 33.7 Tobacco/Smoking Status: Tobacco use Status Tobacco use date assessed 04/15/25 04/15/25 16:01 Patient Tobacco Use Status Former Tobacco user 04/15/25 16:01 Tobacco use type Cigarette 04/15/25 16:01 e-Cigarette/Vaping Use Never Used 04/15/25 16:01 Thrive Assessment: Date of Thrive Assessment Date Thrive assessed 10/11/24 04/15/25 16:01 Currently or been in a relationship where the following occur: No concerns reported Const General: no acute distress Nutritional Appearance: obese Orientation/consciousness: patient oriented x3 HENMT Head: Yes normocephalic Eyes Pupils: Equal, round and reactive pupils present Resp Effort & Inspection: normal respiratory effort Auscultation: clear to auscultation bilaterally Cardio Heart sounds: S1 normal heart sound present and S2 normal heart sound present Neuro General: patient oriented x3, gait normal and moves all extremities Cranial nerves: Yes Equal, round and reactive pupils present Psych Speech and movement: Normal speech and movement present Coding Level of Care Code Est Pt Level 4 (04449) Diagnoses Generalized headaches R51.9 Essential hypertension I10 Time Spent (min) 20 Assessment & Plan Assessment & Plan (1) Generalized headaches: Code(s): R51.9 - Headache, unspecified Category: Medical Plan: Acetaminophen for pain relief. Ibuprofen for pain relief. Lifestyle changes; Weight loss, healthy eating, Daily exercise and obtain good night sleep. (2) Essential hypertension: Code(s): I10 - Essential (primary) hypertension Category: Medical Plan: Will start her on Lisinopril 20 mg once daily. Will have her f/u for BP check in 2 weeks with Nurse Navigator. Lifestyle changes; Weight loss, healthy eating, Daily exercise and obtain good night sleep. Medications: New lisinopril 20 mg PO DAILY 30 tabs 1RF I10 - Essential (primary) hypertension
--- OUTSIDE RECORDS SUMMARY | 2025-04-15 15:55 | XMS_ITS | Encounter Summary ---
Author Organization [facility] Address [address] [place] [address] Care Team Providers Care Scheduling Coordinator Name Role Phone Aydee Bower DMD Primary Care Provider [phone] Encounter Details Date Type Department Care Team (Late st Contact Info) Description 12/14/2021 Dental Inter[facility] Note [facility] [address] [place] [address] Miranda Sinha DMD [address] [place], [place] [phone] Social History Tobacco Use Types Packs/Day Years [...] on filedocumented in this encounter Care Teams Scheduling Coordinator Relationship Specialty Start Date End Date Aydee Bower DMD [address] [place] [address] PCP - General Dental Dormitory Supervisor 04/24/20 documented as of this encounter
--- OUTSIDE RECORDS SUMMARY | 2025-04-15 15:55 | XMS_ITS | Encounter Summary ---
Author Organization [facility] Address [address] [place] [address] Care Team Providers Care Plaster Machine Operator Name Role Phone Aydee Bower DMD Primary Care Provider [phone] Encounter Details Date Type Department Care Team (Late st Contact Info) Description 01/17/[address] Inter[address] [facility] Dental [address] [place] [address] Miranda Sinha DMD [address] [place], [place] [id number] Social History Tobacco Use Types Packs/Day Years [...] on filedocumented in this encounter Care Teams Plaster Machine Operator Relationship Specialty Start Date End Date Aydee Bower DMD [address] [place] [address] PCP - General Dental Latent Print Examiner 9/28/20 documented as of this encounter
--- OUTSIDE RECORDS SUMMARY | 2025-04-15 15:55 | XMS_ITS | Encounter Summary ---
Author Organization [facility] Address [address] [place] [address] Care Team Providers Care Chamber Walker Name Role Phone Aydee Bower DMD Primary Care Provider [phone] Encounter Details Date Type Department Care Team (Late st Contact Info) Description 11/21/2021 [facility] [address] [facility] [address] [place] [address] Miranda Sinha DMD [address] [place], [place] [phone] Social History Tobacco Use Types Packs/Day Years [...] on filedocumented in this encounter Care Teams Chamber Walker Relationship Specialty Start Date End Date Aydee Bower DMD [address] [place] [address] PCP - General Dental Investment Trader 04/24/20 documented as of this encounter
--- OUTSIDE RECORDS SUMMARY | 2025-04-15 15:55 | XMS_ITS | Encounter Summary ---
Author Organization [facility] Address [address] [place] [address] Care Team Providers Care Avionics Technician Name Role Phone Aydee Bower SALIMA Primary Care Provider [phone] Encounter Details Date Type Department Care Team (Late st Contact Info) Description 11/15/2021 Dental Interim Note [facility] Main Dental [address] [place] [address] Miranda Sinha DMD [address] [place], [place] [phone] Social History Tobacco Use Types Packs/Day Years [...] on filedocumented in this encounter Care Teams Avionics Technician Relationship Specialty Start Date End Date Aydee Bower DMD [address] [place] [address] PCP - General Dental Fixed Interest Dealer 04/24/20 documented as of this encounter
--- OUTSIDE RECORDS SUMMARY | 2025-04-15 15:55 | XMS_ITS | Clinical Summary ---
Author Organization [facility] Address [address] [place] [address] Care Team Providers Care Radio Electronics Officer Name Role Phone Aydee Bower DMD Primary Care Provider Source Comments PLEASE NOTE, if this patient [...] Plan of Treatment Not on file Insurance [place] MED[place] DENTAL Care Teams Radio Electronics Officer Relationship Specialty Start Date End Date Aydee Bower DMD [address] [place] [address] PCP - General Dental Call Center Agent 04/24/20
--- OUTSIDE RECORDS SUMMARY | 2025-04-15 15:55 | XMS_ITS | Encounter Summary ---
Author Organization [facility] Address [address] [place] [address] Care Team Providers Care Cigar Binder Name Role Phone Aydee Bower SALIMA Primary Care Provider [phone] Encounter Details Date Type Department Care Team (Late st Contact Info) Description 11/14/2021 Dental Interim Note [facility] Main Dental [address] [place] [address] Miranda Sinha DMD [address] [place], [place] [phone] Social History Tobacco Use Types Packs/Day Years [...] on filedocumented in this encounter Care Teams Cigar Binder Relationship Specialty Start Date End Date Aydee Bower DMD [address] [place] [address] PCP - General Dental Jackscrew Worker 04/24/20 documented as of this encounter
[2025-04-15 15:56] VITALS: BP 152/80; PULSE 66; TEMP 36.3; O2SAT 98; BMI 33.7
== END 2025-04-15 16:47 | disposition home or self-care (01) ==
LOC: HO.HMCH 15:52
PROVIDERS: PCP Internal Medicine; Visit Provider Nurse Practitioner Family
DX: R51.9 Headache, unspecified (principal); I10 Essential (primary) hypertension

== ENCOUNTER → 2025-04-15 15:51 | Outpatient (BNVA) | payer OTHER, SELFPAY | PROVIDERS: PCP Internal Medicine; Visit Provider Nurse Practitioner Family | DX: I10 Essential (primary) hypertension (principal); G43.109 Migraine with aura, not intractable, without status migrainosus | CPT/HCPCS: 99212 ==